=== PATIENT | female | born 1980 | race Hispanic/Latino ===

== ENCOUNTER 2023-10-01 04:51 | Emergency (ER) | payer OTHER ==
[~2023-10-01] VITALS: Ht 149.9 cm; Wt 122.5 kg
[2023-10-01] MEDS: PANTOPRAZOLE 40 MG/VIAL IVP ONE (05:06)
[2023-10-01] MEDS: LACTATED RINGERS 1000ML 1,000 ML IV ONE (05:06)
[2023-10-01] MEDS: ONDANSETRON 4MG INJ IVP ONE (05:06)
[2023-10-01 05:11] LABS: BASOPHILS # (AUTO) 0.04 K/uL (0.00-0.20); BASOPHILS % (AUTO) 0.2 % (0.0-5.0); EOSINOPHILS # (AUTO) 0.17 K/uL (0.00-0.70); EOSINOPHILS % (AUTO) 0.9 % (0.0-8.0); HEMATOCRIT 44.9 % (36-48); IMMATURE GRANULOCYTE ABSOLUTE 0.09 K/uL (0-1); LYMPHOCYTES # (AUTO) 1.8 K/uL (1.0-4.8); LYMPHOCYTES % (AUTO) 9.4 % (21.0-51.0); MEAN CORPUSCULAR HEMOGLOBIN 29.9 pg (27.0-33.0); MEAN CORPUSCULAR HGB CONC 34.5 g/dL (32.0-36.0); MEAN CORPUSCULAR VOLUME 86.5 fL (79-99); MONOCYTES # (AUTO) 0.4 K/uL (0.1-1.0); MONOCYTES % (AUTO) 2.3 % (3.0-13.0); NEUTROPHILS # (AUTO) 16.1 K/uL (1.8-7.7); NEUTROPHILS % (AUTO) 86.7 % (40.0-77.0); PLATELET COUNT (AUTO) 487 K/uL (130-400); RED BLOOD CELL COUNT(AUTO) 5.19 MIL/uL (4.00-5.50); RED CELL DISTRIBUTION WIDTH 12.9 % (11.0-15.5); WHITE BLOOD COUNT (AUTO) 18.6 K/uL (4.8-10.8)
[2023-10-01 05:21] LABS: CREATININE 0.7 mg/dL (0.5-1.0); POTASSIUM 3.7 mmol/L (3.5-5.1)
[2023-10-01 05:27] LABS: ALBUMIN 3.7 g/dL (3.5-5.0); BILIRUBIN,TOTAL 0.4 mg/dL (0.2-1.0); TOTAL PROTEIN, SERUM 8.4 g/dL (6.0-8.3)
[2023-10-01 05:30] LABS: WBC MORPHOLOGY CONSISTENT W/DIFF
[2023-10-01 06:35] LABS: BACTERIA,URINE RARE /HPF (None Seen); MUCUS,URINE MANY LPF (None Seen); SQUAMOUS EPITHELIAL CELL,UR MOD /HPF (0-2)
[2023-10-01 06:42] LABS: APPEARANCE,URINE CLEAR (CLEAR); BILIRUBIN,URINE SMALL mg/dL (NEGATIVE); COLOR,URINE YELLOW (YELLOW); GLUCOSE, URINE (UA) NEGATIVE (NEGATIVE); KETONES,URINE NEGATIVE (NEGATIVE); LEUKOCYTE ESTERASE ,URINE NEGATIVE Leu/uL (NEGATIVE); NITRATE,URINE POSITIVE (NEGATIVE); OCCULT BLOOD,URINE SMALL (NEGATIVE); PROTEIN,URINE 30 mg/dL (NEGATIVE); UROBILINOGEN,URINE 0.2 mg/dL (0.2-1.0)
[2023-10-01] MEDS: CEFTRIAXONE 1G VIAL IVPB ONE (06:55)
[2023-10-01] MEDS ORDERED: ONDA-243 PO (08:52)
[2023-10-01] MEDS ORDERED: LIDOCAINE HCL 2% VISCOUS 15 ML UDCUP PO ONE ×3 (09:00→09:30)
[2023-10-01] MEDS ORDERED: MAG/ALUM/SIMETH 30 ML UDCUP PO ONE ×2 (09:00→09:30)
[2023-10-01] MEDS ORDERED: PHARMACY COMMUNICATION MISC SCH (09:00)
[2023-10-01] MEDS: LIDOCAINE HCL 2% VISCOUS 15 ML UDCUP ONE (09:03)
[2023-10-01] MEDS: MAG/ALUM/SIMETH 30 ML UDCUP ONE (09:03)
[2023-10-01 09:06] VITALS: BP 127/77; PULSE 91; RESP 18; O2SAT 98
[2023-10-01] MEDS ORDERED: DICYCLOMINE HCL 10 MG/5 ML ML PO ONE (09:30)
== END 2023-10-01 09:08 | disposition home or self-care (01) ==
LOC: EDH 04:51
DX: E86.0 Dehydration (principal); A05.9 Bacterial foodborne intoxication, unspecified; R91.8 Other nonspecific abnormal finding of lung field; R11.2 Nausea with vomiting, unspecified; R19.7 Diarrhea, unspecified; Z98.890 Other specified postprocedural states
CPT/HCPCS: 99285; 84484; 80053; 84703; 83690; 85025; 87086; 81001 ×2; 36415; 74176; 96374; 96375; 93005; J7120; J0696; J2405; J2470

== ENCOUNTER 2024-06-08 08:19 | Emergency (ER) | payer OTHER ==
[~2024-06-08] VITALS: Ht 149.9 cm; Wt 108.9 kg
[~2024-06-08 08:19] MED LIST: ONDA-243 PO
[2024-06-08 08:21] VITALS: BP 101/62; PULSE 96; RESP 20; TEMP 101.6
[2024-06-08] MEDS ORDERED: OSEL75 PO (08:25)
[2024-06-08] MEDS ORDERED: FLUT16H NS (08:25)
[2024-06-08] MEDS ORDERED: LORA10TA7 PO (08:25)
--- NOTE | 2024-06-08 08:25 | ERN ---
General Chief Complaint: Flu Symptoms Stated Complaint: FLULIKE SYMPTOMS Time Seen by MD: 08:23 Source: patient History of Present Illness Initial Comments 43-year-old female coming in to be evaluated for flu-like symptoms. Patient states he was exposed to influenza by her grandchildren. Patient has a body aches and URI symptoms. Allergies: Coded Allergies: No Known Drug Allergies (Unverified Allergy, Unknown, 10/01/23) Home Meds Active Scripts Ondansetron (Ondansetron Odt) 4 Mg Tab.rapdis, 4 MG PO TIDP PRN for NAUSEA, #30 TAB 0 Refills Prov:LIZA PARKER MD 10/01/23 Past Medical History Past Medical History: Anemia Past Surgical History: ROS Dictation CONSTITUTIONAL: No chills, no fever, no weakness, no diaphoresis, no malaise. HEAD/FACE: No signs of trauma. EENT: No eye pain, no blurred vision, no tearing, no double vision, no ear pain, no ear discharge, no nose pain, no nasal congestion, no throat pain, no throat swelling, no mouth pain. RESPIRATORY: cough, no orthopnea, no SOB, no stridor, no wheezing. CARDIOVASCULAR: No chest pain, no edema, no palpitations, no syncope. GASTROINTESTINAL/ABDOMINAL: No abdominal pain, no constipation, no diarrhea, no nausea, no vomiting. GENITOURINARY: No abnormal discharge, no dysuria, no frequent urination, no hematuria. No complaints of pain in the genitals. MUSCULOSKELETAL: No back pain, no gout, no joint pain, no joint swelling, no muscle pain, no muscle stiffness, no neck pain. INTEGUMENTARY: No change in color, no change in hair/nails, no dryness, no lesion, no lumps, no rash. NEUROLOGICAL/PSYCH: No anxiety, not depressed, no emotional problem, no headache, no numbness, no pre-existing deficit, no history of seizures, no tremors, no weakness. HEMATOLOGIC/LYMPHATIC: Not anemic, no history of blood clots, no apparent bleeding, no bruising, glands not swollen. All Systems Negative, Except as Noted. Physical Exam Physical Exam Dictation VITAL SIGNS: Reviewed. GENERAL APPEARANCE: Alert, oriented x3, no acute distress, obese. HEAD AND FACE: Non-traumatic. EYES: PERRL, pink conjunctivas, eyelid no trauma, anterior chamber clear. EARS: Pinnas intact and no signs of trauma or erythema. Ear canals clear and no discharge. TMs no erythema. NOSE: No discharge, no bleeding. OROPHARYNX: Mouth normal, teeth no caries, tongue pink. Pharynx clear, no erythema. Tonsils no exudates, no abscesses noted. Mucous membrane moist. NECK: Supple, non-tender, no thyromegaly, no masses, no JVD, no bruits. BREAST: Deferred. CHEST: No tenderness, no crepitus, no paradoxical movement, no retractions. LUNGS: Clear, well-ventilated, symmetric, no rales, no wheezing, no rhonchi, no stridor, good breath sounds bilaterally. HEART: Regular rate, regular rhythm, no murmur, no gallops. VASCULAR: No peripheral edema. ABDOMEN: Soft, positive bowel sounds, nondistended, no guarding, nontender, no rebound, no masses no hepatomegaly, no splenomegaly, no Gonzalez's sign, no hernias. RECTAL: Deferred. GENITAL: Deferred. NEUROLOGICAL: Normal speech, gross motor function intact, gross sensory function intact. MUSCULOSKELETAL: Neck nontender, full range of motion, back nontender, full range of motion. EXTREMITIES: Nontender, full range of motion. SKIN: Color pink, dry, no turgor, no rash, no lacerations, no abrasions, no contusions. LYMPHATICS: Deferred. Results Laboratory and Microbiology Labs Reviewed?: Yes MDM MDM: Differential diagnosis: Influenza, COVID, strep Patient is a 43-year-old female coming in to be evaluated for flu-like symptoms. Because patient was exposed to influenza by family members patient will be discharged with Tamiflu a date advised her appropriate follow up with PCP in 1-2 days. DX & DISP Disposition: Discharge Departure Impression: Primary Impression: Influenza Condition: Stable Scripts Loratadine (Loratadine) 10 Mg Tablet 1 TAB PO DAILY for allergy symptoms for 30 Days, #30 TAB 0 Refills Prov: SHIRA LOCKWOOD MD 06/08/24 Fluticasone Propionate (Flonase Nasal [place]) 50 Mcg/Actuation [place] 2 SPRAY NS DAILY, #16 GM 0 Refills Prov: SHIRA LOCKWOOD MD 06/08/24 Oseltamivir Phosphate (Tamiflu) 75 Mg Cap 1 CAP PO BID for 5 Days, #10 CAP 0 Refills Prov: SHIRA LOCKWOOD MD 06/08/24 Additional Instructions: FOLLOW-UP WITH PRIMARY CARE PROVIDER IN 1 TO 2 DAYS. TAKE MEDICATIONS DIRECTED HERE IN THE EMERGENCY ROOM. OKAY TO CONTINUE HOME MEDICATIONS UNLESS OTHERWISE DISCUSSED DURING YOUR VISIT IN THE EMERGENCY ROOM TODAY. RETURN TO YOUR NEAREST EMERGENCY ROOM IF SYMPTOMS WORSEN OR IF THERE IS NO IMPROVEMENT. CALL 911 IF YOU NEED IMMEDIATE ASSISTANCE. TAKE TYLENOL [id number] NEEDED AND IF NO CONTRAINDICATIONS ARE PRESENT. INCREASE ORAL HYDRATION. A WOUND CULTURE OR URINE CULTURE WAS ORDERED HERE IN THE EMERGENCY ROOM DEPARTMENT PLEASE FOLLOW-UP WITH PRIMARY CARE PROVIDER AND ADVISE THEM TO GET REPEAT PORTS FROM OUR FACILITY. IF YOU HAD ANY MONY WRAP/SPLINTS THAT WERE APPLIED HERE, PLEASE DO NOT REMOVE THEM UNTIL YOU SEE YOUR PRIMARY CARE OR SPECIALTY. Referrals: Referrals: MAMTA SHELTON DO (PCP) Time of Disposition: 08:25 SHIRA LOCKWOOD MD Jun 08, 2024 08:25
[2024-06-08 08:30] VITALS: TEMP 101.7
[2024-06-08] MEDS: acetaMINOPHEN 500 MG TABLET PO ONE (08:30)
== END 2024-06-08 08:43 | disposition home or self-care (01) ==
LOC: EDH 08:19
DX: J11.1 Influenza due to unidentified influenza virus with other respiratory manifestations (principal); Z79.899 Other long term (current) drug therapy; Z98.890 Other specified postprocedural states
CPT/HCPCS: 99283

== ENCOUNTER 2024-06-10 15:21 | Inpatient (IN) | payer OTHER ==
[~2024-06-10] VITALS: Ht 149.9 cm; Wt 102.1 kg
[~2024-06-10 15:21] MED LIST changes: +FLUT16H NS; +LORA10TA7 PO; +OSEL75 PO
[2024-06-10] MEDS ORDERED: Solu-medROL 125MG VIAL IM ONE (16:00)
--- NOTE | 2024-06-10 16:13 | HMCIMG ---
PORTABLE CHEST RADIOGRAPH INDICATION: sob, wheezing COMPARISON: None FINDINGS: Image is somewhat underexposed, but the radiologic examination is still believed to be of reasonable diagnostic quality. Heart size is normal. The pulmonary vascularity and carrington appear normal. Scattered left lung and suspect right lower lung opacities. No significant pleural effusion noted. No pneumothorax detected. IMPRESSION: Left lung pneumonia and suspect early right lung pneumonia. Follow-up chest radiograph is advised in order to ensure resolution.
[2024-06-10 16:20] LABS: BASOPHILS # (AUTO) 0.03 K/uL (0.00-0.20); BASOPHILS % (AUTO) 0.4 % (0.0-5.0); EOSINOPHILS # (AUTO) 0.02 K/uL (0.00-0.70); EOSINOPHILS % (AUTO) 0.2 % (0.0-8.0); IMMATURE GRANULOCYTE ABSOLUTE 0.04 K/uL (0-1); LYMPHOCYTES # (AUTO) 1.8 K/uL (1.0-4.8); LYMPHOCYTES % (AUTO) 22.3 % (21.0-51.0); MEAN CORPUSCULAR HEMOGLOBIN 29.9 pg (27.0-33.0); MEAN CORPUSCULAR HGB CONC 33.4 g/dL (32.0-36.0); MEAN CORPUSCULAR VOLUME 89.5 fL (79-99); MONOCYTES # (AUTO) 0.6 K/uL (0.1-1.0); MONOCYTES % (AUTO) 6.9 % (3.0-13.0); NEUTROPHILS # (AUTO) 5.7 K/uL (1.8-7.7); NEUTROPHILS % (AUTO) 69.7 % (40.0-77.0); PLATELET COUNT (AUTO) 283 K/uL (130-400); RED BLOOD CELL COUNT(AUTO) 4.58 MIL/uL (4.00-5.50); RED CELL DISTRIBUTION WIDTH 12.8 % (11.0-15.5); WHITE BLOOD COUNT (AUTO) 8.1 K/uL (4.8-10.8)
[2024-06-10] MEDS: [UNRECOGNIZED DRUG - OTHER] IV ONE (16:22)
[2024-06-10] MEDS: AZITHROMYCIN 500MG+NS 250ML 250 ML IV ONE (16:22)
[2024-06-10] MEDS: cefTRIAXone 1G VIAL IVPB ONE (16:22)
[2024-06-10 16:29] LABS: ABG BASE EXCESS -0.3 mmol/L (-2.0-3.0); ABG HCO3 22.8 mmol/L (21.0-28.0); ABG PCO2 33 mmHg (32-45); ABG PH 7.459 (7.350-7.450); VENT MODE, BG RA (ROOM AIR)
[2024-06-10 16:32] LABS: CREATININE 0.8 mg/dL (0.5-1.0); POTASSIUM 3.3 mmol/L (3.5-5.1)
[2024-06-10 16:42] VITALS: PULSE 115; RESP 22
[2024-06-10] MEDS: IpraTROPium/alBUTERol SULFATE 3 ML SOLUTION IH ONE ×2 (16:44→17:34)
--- NOTE | 2024-06-10 16:44 | ERN ---
ED Note History of Present Illness Stated Complaint: COUGH, ABD PAIN, HARD TIME BREATHING Chief Complaint: Shortness of Breath Time Seen by MD: 15:23 Dictation: History of present illness: 43-year-old female with past medical history of asthma, anemia presented to ED with complaints of shortness of breath, cough and fever for past 1 week. As per the patient she came to ED 3 days back and was treated with Tamiflu but her symptoms worsened over time. At the time of presentation she states that she can not breath. She denies nausea, vomiting, abdominal pain, dysuria, headache. Her vitals are temperature 101.1, pulse rate 1 0, respiratory 22 per minute, blood pressure 131/77, SpO2 90%on 2 lo2 nasal cannula Allergies: Coded Allergies: No Known Drug Allergies (Unverified Allergy, Unknown, 10/01/23) Home Meds Active Scripts Loratadine (Loratadine) 10 Mg Tablet, 1 TAB PO DAILY for allergy symptoms for 30 Days, #30 TAB 0 Refills Prov:SHIRA LOCKWOOD MD 06/08/24 Fluticasone Propionate (Flonase Nasal [place]) 50 Mcg/Actuation [place], 2 SPRAY NS DAILY, #16 GM 0 Refills Prov:SHIRA LOCKWOOD MD 06/08/24 Oseltamivir Phosphate (Tamiflu) 75 Mg Cap, 1 CAP PO BID for 5 Days, #10 CAP 0 Refills Prov:SHIRA LOCKWOOD MD 06/08/24 Ondansetron (Ondansetron Odt) 4 Mg Tab.rapdis, 4 MG PO TIDP PRN for NAUSEA, #30 TAB 0 Refills Prov:LIZA PARKER MD 10/01/23 Past Medical History Past Medical History: Asthma, High Cholesterol, Hypertension Surgical History: Review of System Dictation REVIEW OF SYSTEMS Positive for shortness of breath, fever, cough CONSTITUTIONAL: Denies fevers, chills, or night sweats. No unintentional weight loss reported. ENT: No hearing loss, otalgia, otorrhea, rhinitis, rhinorrhea, hoarseness, or sore throat. CARDIOVASCULAR: Denies any exertional angina, dyspnea on exertion, orthopnea, paroxysmal nocturnal dyspnea, palpitations claudication. PULMONARY: Denies any shortness of breath, cough, phlegm / sputum, hemoptysis, pleuritic chest pain. SLEEP: Denies morning headaches, daytime somnolence or napping. Denies difficulty falling asleep, staying asleep, waking from sleep. Denies knowledge of snoring. GASTROINTESTINAL: Denies any type of dysphagia to either liquids or solids. Denies nausea, vomiting, abdominal pain, diarrhea, constipation, blood in stools . NEUROLOGICAL: Denies headache, motor weakness, sensory deficit, vertigo / spinning sensation, gait abnormalities, or tremors. GENITOURINARY: Denies frequency, urgency, nocturia, hematuria or incontinence, low urinary stream, straining to void, urinary intermittency or hesitancy ENDOCRINOLOGY: Denies polyuria, polydipsia, polyphagia or heat / cold intolerance. HEMATOLOGY: Denies thrombophilia / previous clots, or coagulopathy / bleeding disorders. ONCOLOGIC: Denies personal history of malignancy. DERMATOLOGIC: Denies rashes or pruritus. PSYCHIATRIC: Denies any suicidal or homicidal ideation. Denies hallucinations. Initial Vital Sign VS Vital Signs Date Time Temp Pulse Resp B/P (MAP) Pulse Ox O2 Delivery O2 Flow Rate FiO2 06/10/24 15:48 101.1 108 22 146/75 95 Room Air 0 06/10/24 16:09 28 Physical Exam Dictation PHYSICAL EXAM GENERAL APPEARANCE: Well nourished . Awake and alert. Oriented to time, place and person. Patient in moderate distress HEENT: Head normocephalic , atraumatic. Sclera anicteric . Pupils are round and reactive. Extraocular movements intact . No conjunctival injection. No nasal congestion. No throat congestion .Oral mucosa moist. NECK: Supple. No JVD. No thyromegaly. No submental, submandibular, pre-/pos tauricular, occipital or supraclavicular lymphadenopathy. No carotid bruits. CHEST: Normal chest expansion. No Telemetry. LUNGS: Bilateral scattered wheezes and crepitations CARDIOVASCULAR: Regular rate and rhythm. S1 and S2 normal. No rubs, murmurs o r gallops. ABDOMEN: Soft, nontender, and nondistended. There is no rebound tenderness, voluntary guarding, or rigidity. No hepatosplenomegaly. Bowel sounds normal in all four quadrants . NEUROLOGICAL: Cranial nerves II-XII grossly intact. Motor is 5/5 in bilateral upper and lower extremities . No sensory deficits. EXTREMITIES: No edema, No cyanosis , No clubbing. Good capillary refill. SKIN: No skin breakdown. No rashes or lesions . PSYCHIATRY: Normal affect .No auditory or visual hallucinations. Normal speech. No dysarthria. Results (Laboratory/Radiology) Laboratory/Radiology Laboratory Tests Test 06/10/24 16:09 06/10/24 16:17 06/10/24 16:28 06/10/24 16:41 White Blood Count 8.1 K/uL (4.8-10.8) Red Blood Count 4.58 MIL/uL (4.00-5.50) Hemoglobin 13.7 g/dL (12.0-16.0) Hematocrit 41.0 % (36-48) Mean Corpuscular Volume 89.5 fL (79-99) Mean Corpuscular Hemoglobin 29.9 pg (27.0-33.0) Mean Corpuscular Hemoglobin Concent 33.4 g/dL (32.0-36.0) Red Cell Distribution Width 12.8 % (11.0-15.5) Platelet Count 283 K/uL (130-400) Mean Platelet Volume 9.4 fL (7.5-10.5) Immature Granulocyte % (Auto) 0.5 % (0-1) Neutrophils (%) (Auto) 69.7 % (40.0-77.0) Lymphocytes (%) (Auto) 22.3 % (21.0-51.0) Monocytes (%) (Auto) 6.9 % (3.0-13.0) Eosinophils (%) (Auto) 0.2 % (0.0-8.0) Basophils (%) (Auto) 0.4 % (0.0-5.0) Neutrophils # (Auto) 5.7 K/uL (1.8-7.7) Lymphocytes # (Auto) 1.8 K/uL (1.0-4.8) Monocytes # (Auto) 0.6 K/uL (0.1-1.0) Eosinophils # (Auto) 0.02 K/uL (0.00-0.70) Basophils # (Auto) 0.03 K/uL (0.00-0.20) Absolute Immature Granulocyte (auto 0.04 K/uL (0-1) Nucleated Red Blood Cells 0.0 % (0.0-0.19) Sodium Level 130 mmol/L (136-145) L Potassium Level 3.3 mmol/L (3.5-5.1) L Chloride Level 93 mmol/L (101-111) L Carbon Dioxide Level 31 mmol/L (21-32) Blood Urea Nitrogen 8 mg/dL (7-18) Creatinine 0.8 mg/dL (0.5-1.0) Glomerular Filtration Rate Calc 93 mL/min (>90) Random Glucose 115 mg/dL (70-105) H Lactic Acid Level 1.7 mmol/L (0.8-2.5) Total Calcium 8.5 mg/dL (8.5-10.1) Troponin I High Sensitivity 7 ng/L (4-50) B-Type Natriuretic Peptide < 5 pg/mL (0-100) Procalcitonin 0.06 ng/mL (0.05-0.5) Influenza Type A Antigen Negative For Type A Influenza Type B Antigen Negative For Type B SARS-CoV-2 Antigen (Rapid) PRESUMPTIVE NEGATIVE Blood Gas Specimen Type Arterial Arterial Blood pH 7.459 (7.350-7.450) Arterial Blood Partial Pressure CO2 33 mmHg (32-45) Arterial Blood Partial Pressure O2 54.0 mmHg (83.0-108.0) Arterial Blood HCO3 22.8 mmol/L (21.0-28.0) Arterial Blood Oxygen Saturation 90.0 % (94.0-98.0) L Arterial Blood Base Excess -0.3 mmol/L (-2.0-3.0) Blood Gas Temperature 37.0 CELSIUS (35.5-37.0) Blood Gas Vent Mode RA (ROOM AIR) FiO2 21.0 % Blood Gas Specimen Comment ANKITA PATTI RB Group A Streptococcus Rapid negative (NEGATIVE) Test 06/10/24 17:35 Urine Color COLORLESS (YELLOW) Urine Appearance CLEAR (CLEAR) Urine pH 5.5 (5.0-8.0) Urine Specific [place] 1.001 (1.001-1.031) Urine Protein NEGATIVE mg/dL (NEGATIVE) Urine Glucose (UA) NEGATIVE mg/dL (NEGATIVE) Urine Ketones 5 mg/dL (NEGATIVE) H Urine Occult Blood SMALL (NEGATIVE) H Urine Nitrate NEGATIVE (NEGATIVE) Urine Bilirubin NEGATIVE mg/dL (NEGATIVE) Urine Urobilinogen 0.2 mg/dL (0.2-1.0) Urine Leukocyte Esterase NEGATIVE Pato/uL Urine RBC 0-1 /HPF (0-1) Urine WBC 0-1 /HPF (0-1) Urine Squamous Epithelial Cells RARE /HPF (0-2) Urine Bacteria None /HPF (None Seen) ED Course ED Course Orders Procedure Category Date Status Time Cbc With Differential LAB 06/10/24 Complete 15:50 Basic Metabolic Panel LAB 06/10/24 Complete 15:50 Influenza Type A & B, LAB 06/10/24 Complete Rapid 15:50 Covid19 (Sars Antigen LAB 06/10/24 Complete Rapid) 15:50 Chest 1vw RAD 06/10/24 Resulted 15:50 Lactic Acid LAB 06/10/24 Complete 15:50 Methylprednisolone PHA 06/10/24 Complete Succ 125mg (Solu-Medr 16:00 Ipratropium/Albuterol PHA 06/10/24 Complete Neb (Duoneb) 16:00 Vital Signs Per CPOE 06/10/24 Transmitted Routine 15:59 Blood Cult DANE 06/10/24 In Process 15:59 Urinalysis Profile LAB 06/10/24 Complete 15:59 Azithromycin 500mg+Ns PHA 06/10/24 Complete 250ml (Azithromyci 16:00 0.9%Nacl 1000ml (Ns PHA 06/10/24 In Process 1000ml) 16:00 Troponin I High LAB 06/10/24 Complete Sensitivity 15:59 B-Type Natriuretic LAB 06/10/24 Complete Peptide 15:59 Procalcitonin LAB 06/10/24 Complete 15:59 Ceftriaxone 1g Vial PHA 06/10/24 Complete (Rocephine 1g Inj) 16:00 Arterial Blood Gas RT 06/10/24 Transmitted 16:12 Arterial Blood Gas LAB 06/10/24 Complete 16:28 Acetaminophen 325 Tab PHA 06/10/24 Complete (Tylenol 325mg Tab 17:00 Ipratropium/Albuterol PHA 06/10/24 Complete Neb (Duoneb) 17:00 Furosemide 20mg Vial PHA 06/10/24 Complete (Lasix 20mg Vial) 17:30 Initiate Po CASPER 06/10/24 In Process Hypokalemia Protoc 17:06 Potassium Chloride PHA 06/10/24 In Process 20meq/100ml ([place] 17:30 Potassium Chl 10% PHA 06/10/24 In Process Elixir 20meq (Kcl 10% 17:30 Potassium Chloride PHA 06/10/24 In Process 20meq Er (K-Dur/Klor- 17:30 Notify Physician If CPOE 06/10/24 Transmitted There Is 17:06 Notify Md On The Next CPOE 06/10/24 Transmitted 17:06 Notify Md On The CPOE 06/10/24 Transmitted Next(Cont.) 17:06 Rapid (Group A Strep) LAB 06/10/24 Complete 16:41 Admit Orders ADM 06/10/24 Transmitted 17:22 Pulmonology Consult CONPHYSVC 06/10/24 Transmitted 17:22 Apply Scds CPOE 06/11/24 Transmitted 06:00 Cbc Without LAB 06/11/24 Verified Differential 04:00 Comprehensive LAB 06/11/24 Verified Metabolic Panel 04:00 Magnesium LAB 06/11/24 Verified 04:00 Azithromycin 500mg+Ns PHA 06/11/24 In Process 250ml (Azithromyci 17:30 Initiate Po CASPER 06/10/24 In Process Hypokalemia Protoc 17:37 Notify Physician If CPOE 06/10/24 Transmitted There Is 17:37 Notify Md On The Next CPOE 06/10/24 Transmitted 17:37 Notify Md On The CPOE 06/10/24 Transmitted Next(Cont.) 17:37 Magnesium 2gm Premix PHA 06/10/24 In Process 50ml (Magnesium 2gm 18:00 Magnesium LAB 06/10/24 In Process 17:37 Ipratropium 0.5 PHA 06/10/24 In Process Mg/2.5 Ml Inh 18:00 Methylprednisolone PHA 06/10/24 In Process Succ 125mg (Solu-Medr 18:00 Hemoglobin A1c LAB 06/10/24 In Process 17:40 Acetaminophen 325 Tab PHA 06/10/24 In Process (Tylenol 325mg Tab 18:00 Acetaminophen 325 Tab PHA 06/10/24 In Process (Tylenol 325mg Tab 18:00 Ondansetron 4mg Inj PHA 06/10/24 In Process (Zofran 4mg Inj) 18:00 Famotidine 20mg Tab PHA 06/10/24 In Process (Pepcid 20mg Tab) 21:00 Ceftriaxone 2gm Vial PHA 06/10/24 In Process (Rocephin 2gm Inj) 18:00 Montelukast Sodium 10 PHA 06/10/24 In Process Mg Tab (Singulair) 21:00 Oxygen By Nc/Pulse Ox CPOE 06/10/24 Transmitted 17:40 Legionella Pneumo Ag DANE 06/10/24 Logged Urine 17:43 Mycoplasma Ab Igg & LAB 06/10/24 In Process IGM 17:43 Metoprolol Tartrate PHA 06/10/24 In Process (Lopressor) 18:00 Heart Healthy Diet DIET 06/11/24 Transmitted Breakfast Enoxaparin Sodium 40 PHA 06/11/24 In Process Mg/0.4 Ml (Lovenox) 09:00 Current Medications Medications (Trade) Dose Ordered Sig/Juani Route PRN Reason Start Time Stop Time Status Last Admin Dose Admin Acetaminophen (TYLenol 325MG TAB) 650 mg ONCE ONCE PO 06/10/24 17:00 06/10/24 17:06 DC 06/10/24 17:18 Albuterol (DUOneb) 1 UDVIAL ONCE ONCE IH 06/10/24 16:00 06/10/24 16:01 DC 06/10/24 16:44 Albuterol (DUOneb) 1 UDVIAL ONCE ONCE IH 06/10/24 17:00 06/10/24 17:06 DC 06/10/24 17:34 Azithromycin 250 ml @ 125 mls/hr ONCE ONCE IV 06/10/24 16:00 06/10/24 17:59 DC 06/10/24 16:22 Ceftriaxone Sodium (ROCEphine 1G INJ) 1 gm ONCE ONCE IVPB 06/10/24 16:00 06/10/24 16:06 DC 06/10/24 16:22 Methylprednisolone Sodium Succinate (Solu-medROL 125MG) 125 mg ONCE ONCE IM 06/10/24 16:00 06/10/24 16:00 DC Sodium Chloride 3,537 ml @ 1,179 mls/hr ONCE ONCE IV 06/10/24 16:00 06/10/24 18:59 06/10/24 16:22 Vital Signs Date Time Temp Pulse Resp B/P (MAP) Pulse Ox O2 Delivery O2 Flow Rate FiO2 06/10/24 17:53 90 22 06/10/24 17:18 99.9 06/10/24 17:15 99.9 111 20 119/72 90 Nasal Cannula* 2 28 06/10/24 16:42 115 22 06/10/24 16:09 101.1 110 20 131/77 90 Nasal Cannula* 2 28 06/10/24 15:48 101.1 108 22 146/75 95 Room Air 0 Medical Decision Making MDM Differential diagnosis : Acute asthma exacerbation, influenza, COVID infection, acute respiratory failure, sepsis, atypical pneumonia Rationale: Tests considered and ordered secondary to shared decision making include: I will re-evaluate the patient after treatment and diagnostic exams have ret urned to determine whether they require further testing, can be safely discharged home, or need admission for further treatment and evaluation. Given the social determinants of health affecting care, including literacy, access to medical care, prescription drug management, and [id number] drugs, I will ensure that treatment plans are tailored accordingly. There are no social concerns with this patient. Risk of complication and/or morbidity or mortality of patient management: None Need for hospitalization: Patient does not meet criteria for hospitalization. Need for emergency major/minor surgery: No Prescription drug management Prescriptions will include symptomatic care Medications-Per medication reconciliation Previous outside records reviewed: Old ER visits. Patient's prior external medical records from other ER visits were reviewed by me as indicated. Prior testing and results from previous visits were reviewed. Prior tests were taken into account with medical decision making and resource utilization, independent historian/historians were used to obtain complete medical history. I independently interpreted the test that were performed, results were reviewed by me and considered findings on radiology. Medical management and examination interpretation discussions was done by me with other qualified healthcare professionals as indicated for the patient's care. Revaluation : Sirs criteria positive. WBCs normal. BMP showed SODIUM 130, POTASSIUM 3.3, CHLORIDE 93. BNP less than5. Her chest x-ray shows bilateral congestion versus pneumonia. We had treated her ceftriaxone and azithromycin. Patient states that she was seen comparatively better after nebulization and Solu-Medrol ejection. We will admit her secondary to acute respiratory failure. Disposition : DX & DISP Disposition: Inpatient Departure Impression: Primary Impression: Sepsis Additional Impressions: Pneumonia, Hypokalemia, Hyponatremia, Morbid obesity, Respiratory failure with hypoxia Critical Time: 30 minutes (Critical Care Procedure NoteAuthorized and Performed by: meTotal critical care time: Approximately 36 minutesDue to a high probability of clinically significant, life threatening deterioration, the patient required my highest level of preparedness to intervene emergently and I personally spent this critical care time directly and personally managing the patient. This critical care time included obtaining a history; examining the patient; pulse oximetry; ordering and review of studies; arranging urgent treatment with development of a management plan; evaluation of patient's response to treatment; frequent reassessment; and, discussions with other providers.This critical care time was performed to assess and manage the high probability of imminent, life-threatening deterioration that could result in multi-organ failure. It was exclusive of separately billable procedures and t reating other patients and teaching time.Please see MDM section and the rest of the note for further information on patient assessment and treatment.) Condition: Stable Referrals: MAMTA SHELTON DO (PCP) I performed a substantive portion of the visit. I have reviewed and personally made and approve the management plan that is documented in the notes by myself with DANAE/resident. I acknowledged full responsibility for the patient's management plan. 43-year-old female with a few days of cough congestion and dyspnea. Meets sepsis criteria. Respiratory failure with hypoxia, PaO2 less than 60. Placed on oxygen. Patient received 30 cc/kg fluids based on ideal body weight, antibiotics. On sepsis focused re-evaluation after the fluids in the antibiotics, patient has cap refill less than 2 seconds stable perfusion the stable vital signs. Admitted to hospitalist. OLIVIA TERESA MD Jun 10, 2024 16:43 DAJUAN MCCURDY DO Jun 10, 2024 18:37
[2024-06-10 16:50] LABS: COVID19 (SARS ANTIGEN RAPID) PRESUMPTIVE NEGATIVE (NEGATIVE); INFLUENZA TYPE A Negative For Type A (NEGATIVE); INFLUENZA TYPE B Negative For Type B (NEGATIVE)
[2024-06-10] MEDS: acetaMINOPHEN 325 MG TAB PO ONE (17:18)
[2024-06-10] MEDS ORDERED: PoTASSium chloRIDE 20MEQ/100ML 100 ML IV PRN ×2 (17:30→18:00)
[2024-06-10] MEDS ORDERED: PoTASSium chl 10% ELIXIR 20MEQ 20 MEQ/15 ML UDCUP PO PRN ×2 (17:30→18:00)
[2024-06-10 17:44] LABS: APPEARANCE,URINE CLEAR (CLEAR); BILIRUBIN,URINE NEGATIVE (NEGATIVE); COLOR,URINE COLORLESS (YELLOW); GLUCOSE, URINE (UA) NEGATIVE (NEGATIVE); KETONES,URINE 5 mg/dL (NEGATIVE); LEUKOCYTE ESTERASE ,URINE NEGATIVE Leu/uL (NEGATIVE); NITRATE,URINE NEGATIVE (NEGATIVE); OCCULT BLOOD,URINE SMALL (NEGATIVE); PH,URINE 5.5 (5.0-8.0); PROTEIN,URINE NEGATIVE (NEGATIVE); UROBILINOGEN,URINE 0.2 mg/dL (0.2-1.0)
[2024-06-10 17:45] LABS: ADD UA MICROSCOPIC YES; RBC,URINE 0-1 /HPF (0-1); SQUAMOUS EPITHELIAL CELL,UR RARE /HPF (0-2); WBC,URINE 0-1 /HPF (0-1)
[2024-06-10 17:53] VITALS: PULSE 90; RESP 22
--- NOTE | 2024-06-10 17:57 | HP ---
[facility] PHYS[facility] Date of Service: Jun 10, 2024 Time of Service: 17:45 HISTORY OF PRESENT ILLNESS: [43-year-old female with past medical history of asthma to the emergency department with complaints of shortness of breaths. Patient is accompanied by her daughter who is also helping with this question and answer. Patient apparently has been having issues of shortness of breaths since Thursday06/06/2024. Patient has been using her albuterol nebulizer treatment but has not improved her condition hence she decided to come to the emergency department. Associated symptoms also include fever which is on and off, weakness and lethargy. In the emergency department, her initial vitals showed fever of 101.1 F, HR between [id number], RR 22, BP 146/75, O2 saturation 90% on2 L via nasal cannula. Patient was evaluated in ED room seven, she is short of breath, noted labored breathing and accessory muscle use. Unable to speak, daughter is speaking for her at this time. She is unable to lay flat and sitting on the gurney. Labs will be, hematology is unremarkable, chemistry showed Na 130, K3.3, Cl 93, random glucose 115. Patient was negative for COVID, influenza a/B and strep. Patient was referred to the hospitalist for further evaluation and management.] REVIEW OF SYSTEMS CONSTITUTIONAL: Denies fevers, chills, or night sweats. No unintentional weight loss reported. NEUROLOGICAL: Denies headache, amaurosis fugax, motor weakness, sensory deficit, vertigo/spinning sensation, gait abnormalities, or tremors. ENT: No hearing loss, otalgia, otorrhea, rhinitis, rhinorrhea, hoarseness, or sore throat. CARDIOVASCULAR: Denies any exertional angina, dyspnea on exertion, orthopnea, paroxysmal nocturnal dyspnea, palpitations, life-threatening arrhythmias, claudication. PULMONARY: Denies any shortness of breath, cough, phlegm/sputum, hemoptysis, pleuritic chest pain. SLEEP: Denies morning headaches, daytime somnolence or napping. Denies difficulty falling asleep, staying asleep, waking from sleep. Denies knowledge of snoring. GASTROINTESTINAL: Denies any type of dysphagia to either liquids or solids. Denies nausea, vomiting, pyrosis, early satiety, abdominal pain, diarrhea, constipation, or changes in stool consistency or caliber. Denies coffee-ground emesis, hematemesis, hematochezia, or melanotic stools. GENITOURINARY: Denies frequency, urgency, nocturia, hematuria or incontinence (Storage/Irritative symptoms.) Low urinary stream, straining to void, urinary intermittency or hesitancy, splitting of the voiding stream, terminal dribbling. ENDOCRINOLOGIC: Denies polyuria, polydipsia, polyphagia or heat/cold intolerances. HEMATOLOGIC: Denies thrombophilia/previous clots, or coagulopathy/bleeding disorders. ONCOLOGIC: Denies personal history of malignancy. DERMATOLOGIC: Denies rashes or pruritus. PSYCHIATRIC: Denies any suicidal or homicidal ideation. Denies hallucinations. PAST MEDICAL HISTORY: [ Asthma, hypertension ] PAST SURGICAL HISTORY: [ x5 ] PAST SOCIAL HISTORY: [Patient is a current tobacco smoker, smokes one sticks per day. Unable to remember how many years of smoking history. Denies alcohol and illicit drug use. ] FAMILY HISTORY: [ Hypertension ] Coded Allergies: No Known Drug Allergies (Unverified Allergy, Unknown, 10/01/23) PHYSICAL EXAM GENERAL APPEARANCE: The patient is awake, alert, and oriented, in no acute cardiopulmonary distress. NEUROLOGICAL: Cranial nerves II-XII grossly intact. Motor is 5/5 in bilateral upper and lower extremities proximal to distal. No sensory deficits. HEENT: Face is symmetric. Pupils are equal and reactive. Extraocular movements are intact. NECK: Supple. No JVD. No thyromegaly. No submental, submandibular, pre- /postauricular, occipital or supraclavicular lymphadenopathy. CHEST: Normal chest expansion. No Telemetry. LUNGS: Absence of any rales, rhonchi or any wheezing. CARDIOVASCULAR: Regular. S1 and S2 normal. No appreciable rubs, murmurs or gallops. ABDOMEN: Soft, nontender, and nondistended. There is no rebound, voluntary guarding, or rigidity. : Deferred. No Butt. EXTREMITIES: Non-edematous and not cyanotic. No clubbing. Good capillary refill. SKIN: No skin breakdown. Vital Sign (Last 24 Hours) 06/10/24 06/10/24 17:15 17:18 Temp 99.9 Pulse 111 Resp 20 B/P (MAP) 119/72 Pulse Ox 90 O2 Delivery Nasal Cannula* O2 Flow Rate 2 FiO2 28 LABS: Laboratory: Test 06/10/24 16:41 06/10/24 16:28 06/10/24 16:17 06/10/24 16:09 Range/Units Group A Streptococcus Rapid negative NEGATIVE Blood Gas Specimen Type Arterial Arterial Blood pH 7.459 H 7.350-7.450 Arterial Blood Partial Pressure CO2 33 32-45 mmHg Arterial Blood Partial Pressure O2 54.0 *L 83.0-108.0 mmHg Arterial Blood HCO3 22.8 21.0-28.0 mmol/L Arterial Blood Oxygen Saturation 90.0 L 94.0-98.0 % Arterial Blood Base Excess -0.3 -2.0-3.0 mmol/L Blood Gas Temperature 37.0 35.5-37.0 CELSIUS Blood Gas Vent Mode RA ROOM AIR FiO2 21.0 % Blood Gas Specimen Comment ANKITA PATTI RB Influenza Type A Antigen Negative For Type A NEGATIVE Influenza Type B Antigen Negative For Type B NEGATIVE SARS-CoV-2 Antigen (Rapid) PRESUMPTIVE NEGATIVE NEGATIVE White Blood Count 8.1 4.8-10.8 K/uL Red Blood Count 4.58 4.00-5.50 MIL/uL Hemoglobin 13.7 12.0-16.0 g/dL Hematocrit 41.0 36-48 % Mean Corpuscular Volume 89.5 79-99 fL Mean Corpuscular Hemoglobin 29.9 27.0-33.0 pg Mean Corpuscular Hemoglobin Concent 33.4 32.0-36.0 g/dL Red Cell Distribution Width 12.8 11.0-15.5 % Platelet Count 283 130-400 K/uL Mean Platelet Volume 9.4 7.5-10.5 fL Immature Granulocyte % (Auto) 0.5 0-1 % Neutrophils (%) (Auto) 69.7 40.0-77.0 % Lymphocytes (%) (Auto) 22.3 21.0-51.0 % Monocytes (%) (Auto) 6.9 3.0-13.0 % Eosinophils (%) (Auto) 0.2 0.0-8.0 % Basophils (%) (Auto) 0.4 0.0-5.0 % Neutrophils # (Auto) 5.7 1.8-7.7 K/uL Lymphocytes # (Auto) 1.8 1.0-4.8 K/uL Monocytes # (Auto) 0.6 0.1-1.0 K/uL Eosinophils # (Auto) 0.02 0.00-0.70 K/uL Basophils # (Auto) 0.03 0.00-0.20 K/uL Absolute Immature Granulocyte (auto 0.04 0-1 K/uL Nucleated Red Blood Cells 0.0 0.0-0.19 % Sodium Level 130 L 136-145 mmol/L Potassium Level 3.3 L 3.5-5.1 mmol/L Chloride Level 93 L 101-111 mmol/L Carbon Dioxide Level 31 21-32 mmol/L Blood Urea Nitrogen 8 7-18 mg/dL Creatinine 0.8 0.5-1.0 mg/dL Glomerular Filtration Rate Calc 93 >90 mL/min Random Glucose 115 H 70-105 mg/dL Lactic Acid Level 1.7 0.8-2.5 mmol/L Total Calcium 8.5 8.5-10.1 mg/dL Troponin I High Sensitivity 7 4-50 ng/L B-Type Natriuretic Peptide < 5 0-100 pg/mL Procalcitonin 0.06 0.05-0.5 ng/mL Current Medications Medications (Trade) Dose Ordered Sig/Juani Route PRN Reason Start Time Stop Time Status Last Admin Dose Admin Azithromycin 250 ml @ 250 mls/hr Q24H IVPB 06/11/24 17:30 06/21/24 17:29 UNV Potassium Chloride 100 ml @ 100 mls/hr AD PRN IV POTASSIUM PROTOCOL 06/10/24 17:30 07/10/24 17:29 Potassium Chloride (K-Dur/Klor-Con 20meq) 20 meq AD PRN PO POTASSIUM PROTOCOL 06/10/24 17:30 07/10/24 17:29 Potassium Chloride (KCl 10% Elixir 20meq/15ml) 20 meq AD PRN PO POTASSIUM PROTOCOL 06/10/24 17:30 07/10/24 17:29 DIAGNOSTICS / RADIOLOGY: [[place] [address] [address] IMAGING REPORT Signed PATIENT: MADAN DAVISON MR#: [id number] : 1980 SEX: F AGE: 43 LOCATION: [facility] ORDER 1553 STATUS: REG ER REPORT#: [id number] SERVICE 1550 REASON: sob, wheezing ORDERING PHYSICIAN: OLIVIA TERESA MD PROCEDURE: CXR1VW - CHEST 1VW PORTABLE CHEST RADIOGRAPH INDICATION: sob, wheezing COMPARISON: None FINDINGS: Image is somewhat underexposed, but the radiologic examination is still believed to be of reasonable diagnostic quality. Heart size is normal. The pulmonary vascularity and carrington appear normal. Scattered left lung and suspect right lower lung opacities. No significant pleural effusion noted. No pneumothorax detected. IMPRESSION: Left lung pneumonia and suspect early right lung pneumonia. Follow-up chest radiograph is advised in order to ensure resolution. DICTATED BY: JHOANA CLEMONS MD DATE: 06/10/241609 ELECTRONICALLY SIGNED BY: JHOANA CLEMONS MD DATE: 06/10/241612 ] ASSESSMENT: [Sepsis, POA Left lung pneumonia and suspected early right lung pneumonia, POA Suspected community-acquired pneumonia, POA Suspected aspiration pneumonia, POA POA Acute respiratory failure, POA Acute on chronic Asthma exacerbation, POA Hypokalemia, POA Hyponatremia, POA Hypochloremia, POA Hyperglycemia, POA] Morbid obesity, POA PLAN: [Admit to PCCU Patient will be on heart healthy diet Patient will be on O2 supplementation to keep O2 sats greater than 92% We will start patient on nebulization treatment with ipratropium bromide q.6 hours scheduled Patient will be on Solu-Medrol 80 mg every 8 hours We will request pulmonology consultation in the morning for evaluation and treatment of asthma Patient will be started with broad-spectrum IV antibiotics for pneumonia We will request sputum culture We will monitor electrolytes and replete as necessary We will start patient on GI prophylaxis and DVT prophylaxis We will request dietary consultation due to morbid obesity for lifestyle modification and diet modification We will repeat labs tomorrow We will request home medications Patient is a full code Case discussed with the attending physician, above plan was formulated ADVANCED CARE PLANNING 1. Which of the following were discussed? Hospice Care - Yes / No Therapeutic options - Yes / No Advance Directives - Yes / No Other discussions - 2. Discussed with who? Patient 3. Voluntary nature of this service was explained to the patient? Yes / No 4. Amount of time spent - ___20 mins____ 5. Reviewed by Physician? (if this service was performed by NPP) Yes / No ] ATTESTATION BY PHYSICIAN I have seen and examined the patient. I reviewed the documentation, medical decision making, and treatment plan as noted by the mid-level provider above. I agree with the findings and plan of care. Cheryl Forde MD, JANICE B AGNP Jun 10, 2024 17:57
[2024-06-10] MEDS: CEFTRIAXONE 2GM VIAL IVPB SCH (18:00)
[2024-06-10] MEDS ORDERED: ondanSETRON 4MG INJ IVP PRN (18:00)
[2024-06-10] MEDS ORDERED: acetaMINOPHEN 325 MG TAB PO PRN ×2 (18:00)
[2024-06-10] MEDS ORDERED: PoTASSium chloRIDE 20MEQ ER 20 MEQ ERTAB PO PRN (18:00)
[2024-06-10] MEDS ORDERED: metoPROLOL tartRATE 1 MG/ML 5ML VIAL IV PRN (18:00)
[2024-06-10] MEDS: Solu-medROL 125MG VIAL IVP SCH (18:15)
[2024-06-10] MEDS: furoSEMIDE 20MG VIAL IV ONE (18:15)
[2024-06-10 18:40] VITALS: PULSE 114; RESP 22
[2024-06-10] MEDS: IpraTROPium 0.5 MG/2.5 ML INH IH SCH (18:40)
[2024-06-10 18:41] LABS: HEMOGLOBIN A1C 6.2 % (4.0-6.0)
[2024-06-10 18:49] VITALS: PULSE 114; RESP 22; O2SAT 96
[2024-06-10] MEDS: PoTASSium chloRIDE 20MEQ ER 20 MEQ ERTAB PO PRN (19:14)
[2024-06-10] MEDS: MAGNESIUM 2GM PREMIX 50ML 50 ML IV PRN (19:15)
[2024-06-10 20:19] VITALS: TEMP 98.9
[2024-06-10] MEDS: monteLUKAST sodIUM 10 MG TAB PO SCH (21:15)
[2024-06-10] MEDS: FAMOTIDINE 20MG TAB PO SCH (21:15)
[2024-06-10 23:12] VITALS: PULSE 95; RESP 22
[2024-06-11] VITALS (8 sets, daily range): BP systolic 115–135; BP diastolic 78–79; PULSE 90–105; RESP 18–22; TEMP 97.4–98.1; O2SAT 95–96
[2024-06-11] MEDS: guaiFENesin-coDEINE 5 ML SYRUP PO PRN (02:36)
[2024-06-11 08:07] LABS: HEMATOCRIT 37.4 % (36-48); MEAN CORPUSCULAR HEMOGLOBIN 30.2 pg (27.0-33.0); RED BLOOD CELL COUNT(AUTO) 4.2 MIL/uL (4.00-5.50); RED CELL DISTRIBUTION WIDTH 13.1 % (11.0-15.5); WHITE BLOOD COUNT (AUTO) 8.6 K/uL (4.8-10.8)
[2024-06-11 08:30] LABS: BILIRUBIN,TOTAL 0.3 mg/dL (0.2-1.0); CREATININE 0.6 mg/dL (0.5-1.0); MAGNESIUM 2.3 mg/dL (1.80-2.40); POTASSIUM 3.5 mmol/L (3.5-5.1); TOTAL PROTEIN, SERUM 7.6 g/dL (6.0-8.3)
[2024-06-11] MEDS ORDERED: MAGNESIUM 2GM PREMIX 50ML 50 ML IV SCH (08:30)
[2024-06-11] MEDS ORDERED: ondanSETRON ODT 4MG TAB PO PRN (09:00)
--- NOTE | 2024-06-11 09:06 | HMCIMG ---
CT CHEST W/O CONTRAST HISTORY: Pneumonia COMPARISON: 10/01/2023 TECHNIQUE: Multiple sequential axial images of the chest were obtained from the thoracic inlet through upper abdomen. Patient was not given contrast through intravenous route. FINDINGS: Bilateral reticular nodular pulmonary infiltrates are seen with left more than right. Fatty changes of the liver are noted. Postcholecystectomy changes are seen. No pleural effusion or pericardial effusion is seen. There is no evidence of pneumothorax. There are normal size mediastinal and hilar lymph nodes. The heart is not enlarged. Degenerative changes of the thoracolumbar spine are present. There is no evidence of adrenal nodule. IMPRESSION: 1. Bilateral reticular nodular pulmonary infiltrates and groundglass infiltrates with left more than right. CT was performed with one or more following dose reduction techniques: automated exposure control, adjustment of the mA and kv according to patient's size, or use of a iterative reconstruction technique.
[2024-06-11] MEDS: ENOXAPARIN SODIUM 40 MG/0.4 ML SYRINGE SQ SCH (09:31)
[2024-06-11] MEDS: Solu-medROL 40MG VIAL IVP SCH (09:32)
[2024-06-11] MEDS: LORATAdine 10 mg 10 MG TABLET PO SCH (09:33)
[2024-06-11] MEDS: PoTASSium chloRIDE 20MEQ ER 20 MEQ ERTAB PO ONE (09:33)
--- NOTE | 2024-06-11 09:41 | CONS ---
[facility] CONSULTATION NOTE Date Patient Seen: Jun 11, 2024 Time of Visit: 09:41 Supervising Physician: Dr. Lyon Reason for Consultation: Hypoxemic respiratory failure Primary Care Physician: MAMTA SHELTON DO Outpatient Specialists: [ ] Inpatient Consults: Pulmonology PROBLEM LIST: Acute hypoxemic respiratory failure. POA. Bilateral community-acquired pneumoniae POA. Acute on chronic asthma exacerbation POA. Hypomagnesemia. Transaminitis without hyperbilirubinemia. Diabetes mellitus type 2 with hyperglycemia , hemoglobin A1c 6.2. Current smoker with a 8-pack year smoking history. Hypertension. Morbid obesity BMI 45.8 kg/m2. HPI: This is a 43-year-old morbidly obese patient who has past medical history for asthma, hypertension and is a current smoker with a 8 pack year smoking history. Patient report, she is only on a rescue inhaler which she rarely uses. Unfortunately, over the past day she has noted the need for increased use of her rescue inhaler. This progressed to the point where she noticed no improvement with her rescue inhaler and decided to come into the emergency department for further evaluation and management of her condition. Per the patient's report, she was also experiencing off and on febrile events. On presentation to the emergency department, the patient had a febrile event T-max 101.1. On the monitor, she was otherwise hemodynamically stable and was on nasal cannula at 2 L. laboratory data did not show any WBC count elevation all remaining parameters were otherwise unremarkable. Imaging of the chest showed bilateral reticular nodular pulmonary infiltrates and ground-glass opacities left more than right. Respiratory serology was negative for influenza A, B, SARS-CoV-2 and group a rapid strep. Because of the findings, the patient was started on steroid therapy with Solu-Medrol 80 q.8h, azithromycin and Rocephin antibiotic course. The patient was subsequently admitted and because of the history of asthma and shortness of breaths, a preliminary consultation was requested. PAST MEDICAL HX: see above PAST SURGICAL HX: noncontributory SOCIAL HISTORY: No tobacco, ETOH, or illicit drug use Coded Allergies: No Known Drug Allergies (Unverified Allergy, Unknown, 10/01/23) REVIEW OF SYSTEMS: 12 point ROS reviewed with patient. Pertinent positives mentioned above. Otherwise negative. PHYSICAL EXAM: GENERAL: Alert, weak, awake oriented x 3 HEENT: EOMI, Sclera non icteric, moist mucosa NECK: Supple, no JVD, trachea midline LUNGS: Diminished breath sounds bilaterally. No wheezes HEART: Regular rate and rhythm. Normal S1 and S2, without murmurs ABD: Abdomen soft, nontender. Bowel sounds present EXT: No clubbing cyanosis or edema NEURO: Alert and oriented to person, follows commands Vital Signs (last 8hr) Date Time Temp Pulse Resp B/P (MAP) Pulse Ox O2 Delivery O2 Flow Rate FiO2 06/11/24 07:07 100 20 06/11/24 07:05 22 N/Cannula Low lpm 2.0 28 06/11/24 06:04 101 28 137/76 96 Nasal Cannula* 2 28 06/11/24 03:28 92 22 142/84 96 Nasal Cannula* 2 28 LABS: Hematology Labs: Test 06/11/24 07:54 06/10/24 16:09 Range/Units White Blood Count 8.6 4.8-10.8 K/uL Red Blood Count 4.20 4.00-5.50 MIL/uL Hemoglobin 12.7 12.0-16.0 g/dL Hematocrit 37.4 36-48 % Mean Corpuscular Volume 89.0 79-99 fL Mean Corpuscular Hemoglobin 30.2 27.0-33.0 pg Mean Corpuscular Hemoglobin Concent 34.0 32.0-36.0 g/dL Red Cell Distribution Width 13.1 11.0-15.5 % Platelet Count 291 130-400 K/uL Mean Platelet Volume 9.3 7.5-10.5 fL Nucleated Red Blood Cells 0.0 0.0-0.19 % Immature Granulocyte % (Auto) 0.5 0-1 % Neutrophils (%) (Auto) 69.7 40.0-77.0 % Lymphocytes (%) (Auto) 22.3 21.0-51.0 % Monocytes (%) (Auto) 6.9 3.0-13.0 % Eosinophils (%) (Auto) 0.2 0.0-8.0 % Basophils (%) (Auto) 0.4 0.0-5.0 % Neutrophils # (Auto) 5.7 1.8-7.7 K/uL Lymphocytes # (Auto) 1.8 1.0-4.8 K/uL Monocytes # (Auto) 0.6 0.1-1.0 K/uL Eosinophils # (Auto) 0.02 0.00-0.70 K/uL Basophils # (Auto) 0.03 0.00-0.20 K/uL Absolute Immature Granulocyte (auto 0.04 0-1 K/uL Chemistry Labs: Test 06/11/24 07:54 06/10/24 16:09 Range/Units Sodium Level 135 L 136-145 mmol/L Potassium Level 3.5 3.5-5.1 mmol/L Chloride Level 99 L 101-111 mmol/L Carbon Dioxide Level 31 21-32 mmol/L Blood Urea Nitrogen 7 7-18 mg/dL Creatinine 0.6 0.5-1.0 mg/dL Glomerular Filtration Rate Calc 113 >90 mL/min Random Glucose 187 #H 70-105 mg/dL Total Calcium 7.9 L 8.5-10.1 mg/dL Magnesium Level 2.30 1.80-2.40 mg/dL Total Bilirubin 0.3 0.2-1.0 mg/dL Aspartate Amino Transf (AST/SGOT) 90 H 10-37 U/L Alanine Aminotransferase (ALT/SGPT) 116 H 12-78 U/L Alkaline Phosphatase 134 50-136 U/L Total Protein 7.6 6.0-8.3 g/dL Albumin 3.0 L 3.5-5.0 g/dL Hemoglobin A1c 6.2 H 4.0-6.0 % Estimated Average Glucose (eAG) 131 H 70-126 mg/dL Lactic Acid Level 1.7 0.8-2.5 mmol/L Troponin I High Sensitivity 7 4-50 ng/L B-Type Natriuretic Peptide < 5 0-100 pg/mL Procalcitonin 0.06 0.05-0.5 ng/mL DIAGNOSTICS / RADIOLOGY RESULTS: [ ] PLAN Pulmonology consultation was requested due to the acute hypoxemic respiratory failure, the patient is currently stable on nasal cannula 2 L. Agree with continuing the Solu-Medrol at 80 mg q.8 hours. Also agree with the Rocephin Zithromax combination for antibiotic coverage. We will continue with Atrovent for bronchodilation, without albuterol due to the tachycardia. We will repeat a chest x-ray in the morning. We will monitor the patient's progress and response to management. We will continue to provide general supportive care, GI and DVT prophylaxis. Further orders per attending MD and hospital course. NEURO: Minimize central acting medications as possible. Maintain fall precautions, adequate lighting during the day PULMONARY: Supplemental 02 as needed. Maintain aspiration precautions at all times CARDIOVASCULAR: Follow hemodynamics. Vital signs per facility protocol GI & NUTRITION: Continue with nutritional support. Continue stool softeners and laxatives as needed. KIDNEYS & ELECTROLYTES: Strict monitoring of intake, output and overall fluid balance. Avoid nephrotoxic medications to the extent possible. Medications to be dosed according to renal function. Monitor electrolytes and replace as needed ENDOCRINE: Maintain blood glucose between 100-180 at all times. Hypoglycemia protocol in place INFECTIOUS DISEASE: Trend temperature, WBC and procalcitonin level Follow cultures, deescalate antibiotics as soon as possible. Panculture if new onset fever ONCOLOGY/HEMATOLOGY/COAGULATION: Monitor for s/s of bleeding Monitor hemoglobin, coagulation studies as needed SKIN: Pressure ulcer prevention per facility protocol Specialty mattress ORTHO/REHAB: Continue PT/OT Prophylaxis: Continue GI and DVT prophylaxis Code Status: Full Resuscitation Disposition: TBD Other: I personally spent 40 minutes of critical care time in treatment of this patient. This includes patient management, time at bedside, time reviewing tests, labs, appropriate images and studies, documentation, and patient care coordination. This time excludes separately billable procedures. HOLLIS QUIROGA NP Jun 11, 2024 09:41
[2024-06-11] MEDS: fluTICasone proPIONate 50MCG/SPRAY 16 GM BOTTLE NS SCH (10:12)
--- NOTE | 2024-06-11 12:42 | PN ---
[facility] PROGRESS NOTE Date of Service: Jun 11, 2024 Time of Service: 12:[address] Forde SUBJECTIVE: [06/10/24 43-year-old female with past medical history of asthma to the emergency department with complaints of shortness of breaths. Patient is accompanied by her daughter who is also helping with this question and answer. Patient apparently has been having issues of shortness of breaths since Thursday06/06/2024. Patient has been using her albuterol nebulizer treatment but has not improved her condition hence she decided to come to the emergency department. Associated symptoms also include fever which is on and off, weaknes s and lethargy. In the emergency department, her initial vitals showed fever of 101.1 F, HR between [id number], RR 22, BP 146/75, O2 saturation 90% on2 L via nasal cannula. Patient was evaluated in ED room seven, she is short of breath, noted labored breathing and accessory muscle use. Unable to speak, daughter is speaking for her at this time. She is unable to lay flat and sitting on the gurney. Labs will be, hematology is unremarkable, chemistry showed Na 130, K3.3, Cl 93, random glucose 115. Patient was negative for COVID, influenza a/B and strep. Patient was referred to the hospitalist for further evaluation and management. 06/11/24 patient was seen by nurse practitioner and physician during rounding in room ED 12 lying in bed. Patient's magnesium today is 1.7 patient receive 2 g of magnesium. Also patient received 40 mEq of potassium for potassium of 3.5. Chest x-ray showed left lower pneumonia of the early right pneumonia. CT chest showed bilateral reticular nodular pulmonary infiltrates with ground-glass infiltrate. Patient was evaluated by after school program director at this moment we are waiting further recommendations. Patient continues to be on methylprednisolone 80 mg q.8 hours. Patient is on Azithromycin, Rocephin at this moment. Sodium has imporved from 120 to 135. We will continue to monitor patient in the meantime. A.m. labs] REVIEW OF SYSTEMS CONSTITUTIONAL: Denies fevers, chills, or night sweats. No unintentional weight loss reported. NEUROLOGICAL: Denies headache, amaurosis fugax, motor weakness, sensory deficit, vertigo/spinning sensation, gait abnormalities, or tremors. ENT: No hearing loss, otalgia, otorrhea, rhinitis, rhinorrhea, hoarseness, or s ore throat. CARDIOVASCULAR: Denies any exertional angina, dyspnea on exertion, orthopnea, paroxysmal nocturnal dyspnea, palpitations, life-threatening arrhythmias, claudication. PULMONARY: Denies any shortness of breath, cough, phlegm/sputum, hemoptysis, pleuritic chest pain. SLEEP: Denies morning headaches, daytime somnolence or napping. Denies difficulty falling asleep, staying asleep, waking from sleep. Denies knowledge of snoring. GASTROINTESTINAL: Denies any type of dysphagia to either liquids or solids. Denies nausea, vomiting, pyrosis, early satiety, abdominal pain, diarrhea, constipation, or changes in stool consistency or caliber. Denies coffee-ground emesis, hematemesis, hematochezia, or melanotic stools. GENITOURINARY: Denies frequency, urgency, nocturia, hematuria or incontinence (Storage/Irritative symptoms.) Low urinary stream, straining to void, urinary intermittency or hesitancy, splitting of the voiding stream, terminal dribbling. ENDOCRINOLOGIC: Denies polyuria, polydipsia, polyphagia or heat/cold intolerances. HEMATOLOGIC: Denies thrombophilia/previous clots, or coagulopathy/bleeding disorders. ONCOLOGIC: Denies personal history of malignancy. DERMATOLOGIC: Denies rashes or pruritus. PSYCHIATRIC: Denies any suicidal or homicidal ideation. Denies hallucinations. PHYSICAL EXAM GENERAL APPEARANCE: The patient is awake, alert, and oriented, in no acute cardiopulmonary distress. NEUROLOGICAL: Cranial nerves II-XII grossly intact. Motor is 5/5 in bilateral upper and lower extremities proximal to distal. No sensory deficits. HEENT: Face is symmetric. Pupils are equal and reactive. Extraocular movements are intact. NECK: Supple. No JVD. No thyromegaly. No submental, submandibular, pre- /postauricular, occipital or supraclavicular lymphadenopathy. CHEST: Normal chest expansion. No Telemetry. LUNGS: Absence of any rales, rhonchi or any wheezing. CARDIOVASCULAR: Regular. S1 and S2 normal. No appreciable rubs, murmurs or gallops. ABDOMEN: Soft, nontender, and nondistended. There is no rebound, voluntary guarding, or rigidity. : Deferred. No Butt. EXTREMITIES: Non-edematous and not cyanotic. No clubbing. Good capillary refill. SKIN: No skin breakdown. Vital Signs (last 8hr) Date Time Temp Pulse Resp B/P (MAP) Pulse Ox O2 Delivery O2 Flow Rate FiO2 06/11/24 10:55 97.7 94 18 137/98 96 Nasal Cannula* 2 28 06/11/24 10:51 90 18 06/11/24 07:07 100 20 06/11/24 07:05 22 N/Cannula Low lpm 2.0 28 06/11/24 06:04 101 28 137/76 96 Nasal Cannula* 2 28 LABS: Laboratory: Test 06/11/24 07:54 06/10/24 17:35 06/10/24 16:41 06/10/24 16:28 Range/Units White Blood Count 8.6 4.8-10.8 K/uL Red Blood Count 4.20 4.00-5.50 MIL/uL Hemoglobin 12.7 12.0-16.0 g/dL Hematocrit 37.4 36-48 % Mean Corpuscular Volume 89.0 79-99 fL Mean Corpuscular Hemoglobin 30.2 27.0-33.0 pg Mean Corpuscular Hemoglobin Concent 34.0 32.0-36.0 g/dL Red Cell Distribution Width 13.1 11.0-15.5 % Platelet Count 291 130-400 K/uL Mean Platelet Volume 9.3 7.5-10.5 fL Nucleated Red Blood Cells 0.0 0.0-0.19 % Sodium Level 135 L 136-145 mmol/L Potassium Level 3.5 3.5-5.1 mmol/L Chloride Level 99 L 101-111 mmol/L Carbon Dioxide Level 31 21-32 mmol/L Blood Urea Nitrogen 7 7-18 mg/dL Creatinine 0.6 0.5-1.0 mg/dL Glomerular Filtration Rate Calc 113 >90 mL/min Random Glucose 187 #H 70-105 mg/dL Total Calcium 7.9 L 8.5-10.1 mg/dL Magnesium Level 2.30 1.80-2.40 mg/dL Total Bilirubin 0.3 0.2-1.0 mg/dL Aspartate Amino Transf (AST/SGOT) 90 H 10-37 U/L Alanine Aminotransferase (ALT/SGPT) 116 H 12-78 U/L Alkaline Phosphatase 134 50-136 U/L Total Protein 7.6 6.0-8.3 g/dL Albumin 3.0 L 3.5-5.0 g/dL Urine Color COLORLESS YELLOW Urine Appearance CLEAR CLEAR Urine pH 5.5 5.0-8.0 Urine Specific [place] 1.001 1.001-1.031 Urine Protein NEGATIVE NEGATIVE mg/dL Urine Glucose (UA) NEGATIVE NEGATIVE mg/dL Urine Ketones 5 H NEGATIVE mg/dL Urine Occult Blood SMALL H NEGATIVE Urine Nitrate NEGATIVE NEGATIVE Urine Bilirubin NEGATIVE NEGATIVE mg/dL Urine Urobilinogen 0.2 0.2-1.0 mg/dL Urine Leukocyte Esterase NEGATIVE NEGATIVE Pato/uL Urine RBC 0-1 0-1 /HPF Urine WBC 0-1 0-1 /HPF Urine Squamous Epithelial Cells RARE 0-2 /HPF Urine Bacteria None None Seen /HPF Group A Streptococcus Rapid negative NEGATIVE Blood Gas Specimen Type Arterial Arterial Blood pH 7.459 H 7.350-7.450 Arterial Blood Partial Pressure CO2 33 32-45 mmHg Arterial Blood Partial Pressure O2 54.0 *L 83.0-108.0 mmHg Arterial Blood HCO3 22.8 21.0-28.0 mmol/L Arterial Blood Oxygen Saturation 90.0 L 94.0-98.0 % Arterial Blood Base Excess -0.3 -2.0-3.0 mmol/L Blood Gas Temperature 37.0 35.5-37.0 CELSIUS Blood Gas Vent Mode RA ROOM AIR FiO2 21.0 % Blood Gas Specimen Comment [facility] RB Test 06/10/24 16:17 06/10/24 16:09 Range/Units Influenza Type A Antigen Negative For Type A NEGATIVE Influenza Type B Antigen Negative For Type B NEGATIVE SARS-CoV-2 Antigen (Rapid) PRESUMPTIVE NEGATIVE NEGATIVE Immature Granulocyte % (Auto) 0.5 0-1 % Neutrophils (%) (Auto) 69.7 40.0-77.0 % Lymphocytes (%) (Auto) 22.3 21.0-51.0 % Monocytes (%) (Auto) 6.9 3.0-13.0 % Eosinophils (%) (Auto) 0.2 0.0-8.0 % Basophils (%) (Auto) 0.4 0.0-5.0 % Neutrophils # (Auto) 5.7 1.8-7.7 K/uL Lymphocytes # (Auto) 1.8 1.0-4.8 K/uL Monocytes # (Auto) 0.6 0.1-1.0 K/uL Eosinophils # (Auto) 0.02 0.00-0.70 K/uL Basophils # (Auto) 0.03 0.00-0.20 K/uL Absolute Immature Granulocyte (auto 0.04 0-1 K/uL Hemoglobin A1c 6.2 H 4.0-6.0 % Estimated Average Glucose (eAG) 131 H 70-126 mg/dL Lactic Acid Level 1.7 0.8-2.5 mmol/L Troponin I High Sensitivity 7 4-50 ng/L B-Type Natriuretic Peptide < 5 0-100 pg/mL Procalcitonin 0.06 0.05-0.5 ng/mL Current Medications Medications (Trade) Dose Ordered Sig/Juani Route PRN Reason Start Time Stop Time Status Last Admin Dose Admin Acetaminophen (TYLenol 325MG TAB) 650 mg Q4H PRN PO TEMPERATURE GREATER THAN 101.5 06/10/24 18:00 07/10/24 17:59 Acetaminophen (TYLenol 325MG TAB) 650 mg Q6H PRN PO MILD PAIN (1-3) 06/10/24 18:00 07/10/24 17:59 Azithromycin 250 ml @ 250 mls/hr Q24H IVPB 06/11/24 17:30 06/21/24 17:29 Ceftriaxone Sodium (Rocephin 2gm Inj) 2 gm Q24H IVPB 06/10/24 18:00 06/20/24 17:59 Enoxaparin Sodium (Lovenox) 40 mg DAILY SQ 06/11/24 09:00 07/11/24 08:59 06/11/24 09:31 40 MG Famotidine (Pepcid 20mg Tab) 20 mg BID PO 06/10/24 21:00 07/10/24 20:59 06/11/24 09:32 20 MG Fluticasone Propionate (FLOnase 50 mcg/ spray 16g bottle) 1 SPRAY DAILY NS 06/11/24 09:00 07/11/24 08:59 06/11/24 10:12 2 SPRAYS Guaifenesin/ Codeine Phosphate (RobiTUSSin AC 5 ML SYRUP) 5 ml Q6H PRN PO COUGH 06/11/24 01:00 07/11/24 00:59 06/11/24 09:31 5 ML Ipratropium [place] (AtrovENT UD) 0.5 MG [id number] IH 06/10/24 18:00 07/10/24 17:59 06/11/24 10:40 0.5 MG Loratadine (LORATAdine 10 mg) 10 mg DAILY PO 06/11/24 09:00 07/11/24 08:59 06/11/24 09:33 10 MG Magnesium Sulfate 50 ml @ 0 mls/hr PROTOCOL IV 06/11/24 08:30 06/11/24 08:36 DC Magnesium Sulfate 50 ml @ 0 mls/hr PROTOCOL PRN IV MAGNESIUM PROTOCOL 06/10/24 18:00 07/10/24 17:59 06/10/24 19:15 25 MLS/HR Methylprednisolone Sodium Succinate (Solu-medROL 40MG) 80 mg Q8H IVP 06/11/24 10:00 07/10/24 17:59 06/11/24 09:32 80 MG Methylprednisolone Sodium Succinate (Solu-medROL 125MG) 80 mg Q8H IVP 06/10/24 18:00 06/11/24 08:35 DC 06/11/24 02:34 80 MG Metoprolol Tartrate (loprESSOR) 5 mg Q8H PRN IV INCREASED HEART RATE 06/10/24 18:00 07/10/24 17:59 Montelukast Sodium (SinguLAIR) 10 mg HS PO 06/10/24 21:00 07/10/24 20:59 06/10/24 21:15 10 MG Ondansetron HCl (zoFRAN 4MG INJ) 4 mg Q6H PRN IVP NAUSEA/VOMITING 06/10/24 18:00 07/10/24 17:59 Ondansetron HCl (zoFRAN 4MG ODT) 4 mg TIDP PRN PO NAUSEA 06/11/24 09:00 06/11/24 08:36 DC Potassium Chloride 100 ml @ 100 mls/hr AD PRN IV POTASSIUM PROTOCOL 06/10/24 17:30 07/10/24 17:29 Potassium Chloride 100 ml @ 100 mls/hr AD PRN IV POTASSIUM PROTOCOL 06/10/24 18:00 07/10/24 17:59 UNV Potassium Chloride (K-Dur/Klor-Con 20meq) 20 meq AD PRN PO POTASSIUM PROTOCOL 06/10/24 17:30 07/10/24 17:29 06/10/24 19:14 20 MEQ Potassium Chloride (K-Dur/Klor-Con 20meq) 20 meq AD PRN PO POTASSIUM PROTOCOL 06/10/24 18:00 07/10/24 17:59 UNV Potassium Chloride (KCl 10% Elixir 20meq/15ml) 20 meq AD PRN PO POTASSIUM PROTOCOL 06/10/24 17:30 07/10/24 17:29 Potassium Chloride (KCl 10% Elixir 20meq/15ml) 20 meq AD PRN PO POTASSIUM PROTOCOL 06/10/24 18:00 07/10/24 17:59 UNV DIAGNOSTICS / RADIOLOGY: [ ] ASSESSMENT: [Acute Sepsis, POA Acute hypoxic respiratory failure, POA Left lung pneumonia and suspected early right lung pneumonia, POA Suspected community-acquired pneumonia, POA Suspected aspiration pneumonia, POA POA Acute on chronic Asthma exacerbation, POA uncontrolled DM type 2 with hyperglycemia POA moderate malnutrition POA Hypokalemia, POA Hyponatremia, POA Hypochloremia, POA Hyperglycemia, POA hypomagnesemia 1.7 POA] Morbid obesity, POA PLAN: [Admit to [facility] X-ray left lower lung pneumonia and early right pneumonia CT chest showed bilateral reticular nodular pulmonary infiltrate and ground- glass infiltrates Pending pulmonary consultation/recommendations Patient will be on heart healthy diet Patient will be on O2 supplementation to keep O2 sats greater than 92% We will start patient on nebulization treatment with ipratropium bromide q.6 hours scheduled Patient will be on Solu-Medrol 80 mg every 8 hours We will request pulmonology consultation in the morning for evaluation and treatment of asthma Patient will be started with broad-spectrum IV antibiotics for pneumonia We will request sputum culture We will monitor electrolytes and replete as necessary We will start patient on GI prophylaxis and DVT prophylaxis We will request dietary consultation due to morbid obesity for lifestyle modification and diet modification We will repeat labs tomorrow home meds reconcilled by DIVERSIONAL THERAPIST Patient is a full code ATTESTATION BY PHYSICIAN I have seen and examined the patient. I reviewed the documentation, medical de cision making, and treatment plan as noted by the mid-level provider above. I agree with the findings and plan of care. Cheryl Forde MD, [employer] Jun 11, 2024 12:42
[2024-06-11] MEDS: AZITHROMYCIN 500MG+NS 250ML 250 ML IVPB SCH (18:06)
[2024-06-12] VITALS (14 sets, daily range): BP systolic 112–140; BP diastolic 69–90; PULSE 65–95; RESP 18–22; TEMP 97.7–98.7; O2SAT 91–95
[2024-06-12 03:35] LABS: BASOPHILS # (AUTO) 0.02 K/uL (0.00-0.20); BASOPHILS % (AUTO) 0.1 % (0.0-5.0); HEMATOCRIT 35.3 % (36-48); IMMATURE GRANULOCYTE ABSOLUTE 0.07 K/uL (0-1); LYMPHOCYTES # (AUTO) 1.8 K/uL (1.0-4.8); LYMPHOCYTES % (AUTO) 13.4 % (21.0-51.0); MEAN CORPUSCULAR HGB CONC 33.7 g/dL (32.0-36.0); MEAN CORPUSCULAR VOLUME 88.9 fL (79-99); MONOCYTES # (AUTO) 0.5 K/uL (0.1-1.0); MONOCYTES % (AUTO) 3.6 % (3.0-13.0); NEUTROPHILS # (AUTO) 11.1 K/uL (1.8-7.7); NEUTROPHILS % (AUTO) 82.4 % (40.0-77.0); PLATELET COUNT (AUTO) 302 K/uL (130-400); RED BLOOD CELL COUNT(AUTO) 3.97 MIL/uL (4.00-5.50); RED CELL DISTRIBUTION WIDTH 13.2 % (11.0-15.5); WHITE BLOOD COUNT (AUTO) 13.5 K/uL (4.8-10.8)
[2024-06-12 03:50] LABS: ALBUMIN 2.7 g/dL (3.5-5.0); BILIRUBIN,TOTAL 0.3 mg/dL (0.2-1.0); CREATININE 0.6 mg/dL (0.5-1.0); MAGNESIUM 2.2 mg/dL (1.80-2.40); POTASSIUM 3.7 mmol/L (3.5-5.1); TOTAL PROTEIN, SERUM 7.2 g/dL (6.0-8.3)
[2024-06-12] MEDS: PoTASSium chloRIDE 20MEQ ER 20 MEQ ERTAB PO ONE (08:21)
--- NOTE | 2024-06-12 08:24 | HMCIMG ---
CHEST 1VW HISTORY: Asthma COMPARISON: None FINDINGS: A frontal projection of the chest was obtained. There are bilateral pulmonary infiltrates suggestive of pulmonary vascular congestion with possible superimposed pneumonitis. The heart is borderline enlarged. Degenerative changes are seen. No evidence of aortic calcification is seen. IMPRESSION: 1. Bilateral pulmonary infiltrates are seen suggestive of pulmonary vascular congestion with possible superimposed pneumonitis.
--- NOTE | 2024-06-12 10:49 | NUR ---
DC PLAN VISITED WITH PATIENT. PATIENT LIVES WITH SPOUSE. INDEPENDENT ABLE TO PERFORM ADLS. PATIENT HAS NO SERVICES OR DME'S. FEELS SAFE TO RETURN HOME. EXPLAINED PROCESS IF NEEDS O2. ALSO LET THEM KNOW IF WANTING A WALKER WOULD NEED TO HAVE A MEDICAL DIAGNOSIS FOR IT AND WOULD NEED A PT EVAL. ONCE EXPLAINED TO MOM OF PATIENT WHO ASKED PATIENT SAID DID NOT NEED. DID OFFER PRIVATE PAY PRICES SAID NOT NEEDED. Addendum: 06/12/24 at 1053 by ADELFO SEGURA RN CM Amended: Links added.
--- NOTE | 2024-06-12 11:03 | PN ---
[facility] PROGRESS NOTE Date Patient Seen: Jun 12, 2024 Time of Visit: 11:03 Supervising Physician: Dr. Lyon Primary Care Physician: MAMTA SHELTON DO Outpatient Specialists: [ ] Inpatient Consults: Pulmonology PROBLEM LIST: Acute hypoxemic respiratory failure. POA. Bilateral community-acquired pneumoniae POA. Acute on chronic asthma exacerbation POA. Hypomagnesemia. Transaminitis without hyperbilirubinemia. Diabetes mellitus type 2 with hyperglycemia , hemoglobin A1c 6.2. Current smoker with a 8-pack year smoking history. Hypertension. Morbid obesity BMI 45.8 kg/m2. INTERVAL HISTORY: 06/12/2024: At the time of my evaluation, the patient was sitting up on her bed. She will remain on oxygen supplementation via nasal cannula, 2 liters/minute, she is stable on the monitor. Laboratory data today showed a slight increase of WBC to 13.5 probably reactive steroids. On chemistry, there was persisting transaminitis but improved compared to yesterday. On chest x- ray, there is persisting ground-glass opacities/infiltrates. No other complaint. REVIEW OF SYSTEMS: 12 point ROS reviewed with patient. Pertinent positives mentioned above. Ot herwise negative. PHYSICAL EXAM: GENERAL: Alert, weak, awake oriented x 3 HEENT: EOMI, Sclera non icteric, moist mucosa NECK: Supple, no JVD, trachea midline LUNGS: Diminished breath sounds bilaterally. No wheezes HEART: Regular rate and rhythm. Normal S1 and S2, without murmurs ABD: Abdomen soft, nontender. Bowel sounds present EXT: No clubbing cyanosis or edema NEURO: Alert and oriented to person, follows commands Vital Signs (last 8hr) Date Time Temp Pulse Resp B/P (MAP) Pulse Ox O2 Delivery O2 Flow Rate FiO2 06/12/24 07:33 98.1 90 20 112/69 95 Nasal Cannula 2.0 06/12/24 07:06 95 18 06/12/24 07:05 95 22 N/Cannula Low lpm 2.0 28 06/12/24 03:35 98.2 91 18 120/70 92 Nasal Cannula 2.0 LABS: Hematology Labs: Test 06/12/24 03:20 Range/Units White Blood Count 13.5 #H 4.8-10.8 K/uL Red Blood Count 3.97 L 4.00-5.50 MIL/uL Hemoglobin 11.9 L 12.0-16.0 g/dL Hematocrit 35.3 L 36-48 % Mean Corpuscular Volume 88.9 79-99 fL Mean Corpuscular Hemoglobin 30.0 27.0-33.0 pg Mean Corpuscular Hemoglobin Concent 33.7 32.0-36.0 g/dL Red Cell Distribution Width 13.2 11.0-15.5 % Platelet Count 302 130-400 K/uL Mean Platelet Volume 9.1 7.5-10.5 fL Immature Granulocyte % (Auto) 0.5 0-1 % Neutrophils (%) (Auto) 82.4 H 40.0-77.0 % Lymphocytes (%) (Auto) 13.4 L 21.0-51.0 % Monocytes (%) (Auto) 3.6 3.0-13.0 % Eosinophils (%) (Auto) 0.0 0.0-8.0 % Basophils (%) (Auto) 0.1 0.0-5.0 % Neutrophils # (Auto) 11.1 H 1.8-7.7 K/uL Lymphocytes # (Auto) 1.8 1.0-4.8 K/uL Monocytes # (Auto) 0.5 0.1-1.0 K/uL Eosinophils # (Auto) 0.00 0.00-0.70 K/uL Basophils # (Auto) 0.02 0.00-0.20 K/uL Absolute Immature Granulocyte (auto 0.07 0-1 K/uL Nucleated Red Blood Cells 0.0 0.0-0.19 % Chemistry Labs: Test 06/12/24 03:20 06/10/24 16:09 Range/Units Sodium Level 140 136-145 mmol/L Potassium Level 3.7 3.5-5.1 mmol/L Chloride Level 105 101-111 mmol/L Carbon Dioxide Level 29 21-32 mmol/L Blood Urea Nitrogen 10 7-18 mg/dL Creatinine 0.6 0.5-1.0 mg/dL Glomerular Filtration Rate Calc 113 >90 mL/min Random Glucose 199 H 70-105 mg/dL Total Calcium 8.0 L 8.5-10.1 mg/dL Magnesium Level 2.20 1.80-2.40 mg/dL Total Bilirubin 0.3 0.2-1.0 mg/dL Aspartate Amino Transf (AST/SGOT) 66 H 10-37 U/L Alanine Aminotransferase (ALT/SGPT) 95 H 12-78 U/L Alkaline Phosphatase 109 50-136 U/L Total Protein 7.2 6.0-8.3 g/dL Albumin 2.7 L 3.5-5.0 g/dL Hemoglobin A1c 6.2 H 4.0-6.0 % Estimated Average Glucose (eAG) 131 H 70-126 mg/dL Lactic Acid Level 1.7 0.8-2.5 mmol/L Troponin I High Sensitivity 7 4-50 ng/L B-Type Natriuretic Peptide < 5 0-100 pg/mL Procalcitonin 0.06 0.05-0.5 ng/mL DIAGNOSTICS / RADIOLOGY RESULTS: [ ] PLAN Pulmonology consultation was requested due to the acute hypoxemic respiratory failure, the patient is currently stable on nasal cannula 2 L. Agree with continuing the Solu-Medrol at 80 mg q.8 hours. Also agree with the Rocephin Zithromax combination for antibiotic coverage. We will continue with Atrovent for bronchodilation, without albuterol due to the tachycardia. We will repeat a chest x-ray in the morning. We will monitor the patient's progress and response to management. We will continue to provide general supportive care, GI and DVT prophylaxis. Further orders per attending MD and hospital course. 06/12/2024: For now, we are going to continue current management for the apl ent. She will remain on oxygen supplementation via nasal cannula and we will wean off as appropriate. She will continue on antibiotic coverage with Zithromax and Rocephin as well as IV steroids. I am going to request a respiratory culture. We will replace his electrolyte deficits per the protocol. We will monitor the patient's progress and response to management. Further orders per attending MD and hospital course. NEURO: Minimize central acting medications as possible. Maintain fall precautions, adequate lighting during the day PULMONARY: Supplemental 02 as needed. Maintain aspiration precautions at all times CARDIOVASCULAR: Follow hemodynamics. Vital signs per facility protocol GI & NUTRITION: Continue with nutritional support. Continue stool softeners and laxatives as needed. KIDNEYS & ELECTROLYTES: Strict monitoring of intake, output and overall fluid balance. Avoid nephrotoxic medications to the extent possible. Medications to be dosed according to renal function. Monitor electrolytes and replace as needed ENDOCRINE: Maintain blood glucose between 100-180 at all times. Hypoglycemia protocol in place INFECTIOUS DISEASE: Trend temperature, WBC and procalcitonin level Follow cultures, deescalate antibiotics as soon as possible. Panculture if new onset fever ONCOLOGY/HEMATOLOGY/COAGULATION: Monitor for s/s of bleeding Monitor hemoglobin, coagulation studies as needed SKIN: Pressure ulcer prevention per facility protocol Specialty mattress ORTHO/REHAB: Continue PT/OT Prophylaxis: Continue GI and DVT prophylaxis Code Status: Full Resuscitation Disposition: TBD Other: HOLLIS QUIROGA NP Jun 12, 2024 11:03
[2024-06-12] MEDS: SODIUM CHLORIDE 3% FOR INHALATION 4 ML/AMP VIAL.NEB IH ONE ×3 (11:06→23:19)
--- NOTE | 2024-06-12 11:46 | PN ---
[facility] PROGRESS NOTE Date of Service: Jun 12, 2024 Time of Service: 11:[address] Forde SUBJECTIVE: [06/10/24 43-year-old female with past medical history of asthma to the emergency department with complaints of shortness of breaths. Patient is accompanied by her daughter who is also helping with this question and answer. Patient apparently has been having issues of shortness of breaths since Thursday06/06/2024. Patient has been using her albuterol nebulizer treatment but has not improved her condition hence she decided to come to the emergency department. Associated symptoms also include fever which is on and off, weakness and lethargy. In the emergency department, her initial vitals showed fever of 101.1 F, HR between [id number], RR 22, BP 146/75, O2 saturation 90% on2 L via nasal cannula. Patient was evaluated in ED room seven, she is short of breath, noted labored breathing and accessory muscle use. Unable to speak, daughter is speaking for her at this time. She is unable to lay flat and sitting on the gurney. Labs will be, hematology is unremarkable, chemistry showed Na 130, K3.3, Cl 93, random glucose 115. Patient was negative for COVID, influenza a/B and strep. Patient was referred to the hospitalist for further evaluation and management. 06/11/24 patient was seen by nurse practitioner and physician during rounding in room ED 12 lying in bed. Patient's magnesium today is 1.7 patient receive 2 g of magnesium. Also patient received 40 mEq of potassium for potassium of 3.5. Chest x-ray showed left lower pneumonia of the early right pneumonia. CT chest showed bilateral reticular nodular pulmonary infiltrates with ground-glass infiltrate. Patient was evaluated by lead net software developer at this moment we are waiting further recommendations. Patient continues to be on methylprednisolone 80 mg q.8 hours. Patient is on Azithromycin, Rocephin at this moment. Sodium has imporved from 120 to 135. We will continue to monitor patient in the meantime. A.m. labs 06/12 patient was seen by nurse practitioner physician during rounding in room 202. Patient continues to be on azithromycin and ceftriaxone. Patient is on room air at this moment we will lower steroids methylprednisolone to 40 b.i.d.. Patient will also receive nicotine patch since she has a current smoker of half pack a day. Chest x-ray showed bilateral infiltrate vascular congestion pneumonitis. Dietary was consulted. Pulmonology on case. Blood and sputum culture pending. We will continue to monitor patient in the meantime. A.m. lab] REVIEW OF SYSTEMS CONSTITUTIONAL: Denies fevers, chills, or night sweats. No unintentional weight loss reported. NEUROLOGICAL: Denies headache, amaurosis fugax, motor weakness, sensory deficit, vertigo/spinning sensation, gait abnormalities, or tremors. ENT: No hearing loss, otalgia, otorrhea, rhinitis, rhinorrhea, hoarseness, or sore throat. CARDIOVASCULAR: Denies any exertional angina, dyspnea on exertion, orthopnea, paroxysmal nocturnal dyspnea, palpitations, life-threatening arrhythmias, claudication. PULMONARY: Denies any shortness of breath, cough, phlegm/sputum, hemoptysis, pleuritic chest pain. SLEEP: Denies morning headaches, daytime somnolence or napping. Denies difficulty falling asleep, staying asleep, waking from sleep. Denies knowledge of snoring. GASTROINTESTINAL: Denies any type of dysphagia to either liquids or solids. Denies nausea, vomiting, pyrosis, early satiety, abdominal pain, diarrhea, constipation, or changes in stool consistency or caliber. Denies coffee-ground emesis, hematemesis, hematochezia, or melanotic stools. GENITOURINARY: Denies frequency, urgency, nocturia, hematuria or incontinence (Storage/Irritative symptoms.) Low urinary stream, straining to void, urinary intermittency or hesitancy, splitting of the voiding stream, terminal dribbling. ENDOCRINOLOGIC: Denies polyuria, polydipsia, polyphagia or heat/cold intolerances. HEMATOLOGIC: Denies thrombophilia/previous clots, or coagulopathy/bleeding disorders. ONCOLOGIC: Denies personal history of malignancy. DERMATOLOGIC: Denies rashes or pruritus. PSYCHIATRIC: Denies any suicidal or homicidal ideation. Denies hallucinations. PHYSICAL EXAM: GENERAL: Alert, weak, awake oriented x 3 HEENT: EOMI, Sclera non icteric, moist mucosa NECK: Supple, no JVD, trachea midline LUNGS: Diminished breath sounds bilaterally. No wheezes HEART: Regular rate and rhythm. Normal S1 and S2, without murmurs ABD: Abdomen soft, nontender. Bowel sounds present EXT: No clubbing cyanosis or edema NEURO: Alert and oriented to person, follows commands Vital Signs (last 8hr) Date Time Temp Pulse Resp B/P (MAP) Pulse Ox O2 Delivery O2 Flow Rate FiO2 06/12/24 11:31 98.6 68 20 119/82 98 Nasal Cannula 2.0 06/12/24 11:07 90 18 06/12/24 07:33 98.1 90 20 112/69 95 Nasal Cannula 2.0 06/12/24 07:06 95 18 06/12/24 07:05 95 22 N/Cannula Low lpm 2.0 28 LABS: Laboratory: Test 06/12/24 03:20 06/10/24 17:35 06/10/24 16:41 06/10/24 16:28 Range/Units White Blood Count 13.5 #H 4.8-10.8 K/uL Red Blood Count 3.97 L 4.00-5.50 MIL/uL Hemoglobin 11.9 L 12.0-16.0 g/dL Hematocrit 35.3 L 36-48 % Mean Corpuscular Volume 88.9 79-99 fL Mean Corpuscular Hemoglobin 30.0 27.0-33.0 pg Mean Corpuscular Hemoglobin Concent 33.7 32.0-36.0 g/dL Red Cell Distribution Width 13.2 11.0-15.5 % Platelet Count 302 130-400 K/uL Mean Platelet Volume 9.1 7.5-10.5 fL Immature Granulocyte % (Auto) 0.5 0-1 % Neutrophils (%) (Auto) 82.4 H 40.0-77.0 % Lymphocytes (%) (Auto) 13.4 L 21.0-51.0 % Monocytes (%) (Auto) 3.6 3.0-13.0 % Eosinophils (%) (Auto) 0.0 0.0-8.0 % Basophils (%) (Auto) 0.1 0.0-5.0 % Neutrophils # (Auto) 11.1 H 1.8-7.7 K/uL Lymphocytes # (Auto) 1.8 1.0-4.8 K/uL Monocytes # (Auto) 0.5 0.1-1.0 K/uL Eosinophils # (Auto) 0.00 0.00-0.70 K/uL Basophils # (Auto) 0.02 0.00-0.20 K/uL Absolute Immature Granulocyte (auto 0.07 0-1 K/uL Nucleated Red Blood Cells 0.0 0.0-0.19 % Sodium Level 140 136-145 mmol/L Potassium Level 3.7 3.5-5.1 mmol/L Chloride Level 105 101-111 mmol/L Carbon Dioxide Level 29 21-32 mmol/L Blood Urea Nitrogen 10 7-18 mg/dL Creatinine 0.6 0.5-1.0 mg/dL Glomerular Filtration Rate Calc 113 >90 mL/min Random Glucose 199 H 70-105 mg/dL Total Calcium 8.0 L 8.5-10.1 mg/dL Magnesium Level 2.20 1.80-2.40 mg/dL Total Bilirubin 0.3 0.2-1.0 mg/dL Aspartate Amino Transf (AST/SGOT) 66 H 10-37 U/L Alanine Aminotransferase (ALT/SGPT) 95 H 12-78 U/L Alkaline Phosphatase 109 50-136 U/L Total Protein 7.2 6.0-8.3 g/dL Albumin 2.7 L 3.5-5.0 g/dL Urine Color COLORLESS YELLOW Urine Appearance CLEAR CLEAR Urine pH 5.5 5.0-8.0 Urine Specific [place] 1.001 1.001-1.031 Urine Protein NEGATIVE NEGATIVE mg/dL Urine Glucose (UA) NEGATIVE NEGATIVE mg/dL Urine Ketones 5 H NEGATIVE mg/dL Urine Occult Blood SMALL H NEGATIVE Urine Nitrate NEGATIVE NEGATIVE Urine Bilirubin NEGATIVE NEGATIVE mg/dL Urine Urobilinogen 0.2 0.2-1.0 mg/dL Urine Leukocyte Esterase NEGATIVE NEGATIVE Pato/uL Urine RBC 0-1 0-1 /HPF Urine WBC 0-1 0-1 /HPF Urine Squamous Epithelial Cells RARE 0-2 /HPF Urine Bacteria None None Seen /HPF Group A Streptococcus Rapid negative NEGATIVE Blood Gas Specimen Type Arterial Arterial Blood pH 7.459 H 7.350-7.450 Arterial Blood Partial Pressure CO2 33 32-45 mmHg Arterial Blood Partial Pressure O2 54.0 *L 83.0-108.0 mmHg Arterial Blood HCO3 22.8 21.0-28.0 mmol/L Arterial Blood Oxygen Saturation 90.0 L 94.0-98.0 % Arterial Blood Base Excess -0.3 -2.0-3.0 mmol/L Blood Gas Temperature 37.0 35.5-37.0 CELSIUS Blood Gas Vent Mode RA ROOM AIR FiO2 21.0 % Blood Gas Specimen Comment ANKITA RN RB Test 06/10/24 16:17 06/10/24 16:09 Range/Units Influenza Type A Antigen Negative For Type A NEGATIVE Influenza Type B Antigen Negative For Type B NEGATIVE SARS-CoV-2 Antigen (Rapid) PRESUMPTIVE NEGATIVE NEGATIVE Hemoglobin A1c 6.2 H 4.0-6.0 % Estimated Average Glucose (eAG) 131 H 70-126 mg/dL Lactic Acid Level 1.7 0.8-2.5 mmol/L Troponin I High Sensitivity 7 4-50 ng/L B-Type Natriuretic Peptide < 5 0-100 pg/mL Procalcitonin 0.06 0.05-0.5 ng/mL Current Medications Medications (Trade) Dose Ordered Sig/Juani Route PRN Reason Start Time Stop Time Status Last Admin Dose Admin Acetaminophen (TYLenol 325MG TAB) 650 mg Q4H PRN PO TEMPERATURE GREATER THAN 101.5 06/10/24 18:00 07/10/24 17:59 Acetaminophen (TYLenol 325MG TAB) 650 mg Q6H PRN PO MILD PAIN (1-3) 06/10/24 18:00 07/10/24 17:59 Azithromycin 250 ml @ 250 mls/hr Q24H IVPB 06/11/24 17:30 06/21/24 17:29 06/11/24 18:06 250 MLS/HR Ceftriaxone Sodium (Rocephin 2gm Inj) 2 gm Q24H IVPB 06/10/24 18:00 06/20/24 17:59 06/11/24 15:24 2 GM Enoxaparin Sodium (Lovenox) 40 mg DAILY SQ 06/11/24 09:00 07/11/24 08:59 06/12/24 08:22 40 MG Famotidine (Pepcid 20mg Tab) 20 mg BID PO 06/10/24 21:00 07/10/24 20:59 06/12/24 08:21 20 MG Fluticasone Propionate (FLOnase 50 mcg/ spray 16g bottle) 1 SPRAY DAILY NS 06/11/24 09:00 07/11/24 08:59 06/12/24 08:27 1 SPRAYS Guaifenesin/ Codeine Phosphate (RobiTUSSin AC 5 ML SYRUP) 5 ml Q6H PRN PO COUGH 06/11/24 01:00 07/11/24 00:59 06/12/24 08:25 5 ML Ipratropium [place] (AtrovENT UD) 0.5 MG [id number] IH 06/10/24 18:00 07/10/24 17:59 06/12/24 11:05 0.5 MG Loratadine (LORATAdine 10 mg) 10 mg DAILY PO 06/11/24 09:00 07/11/24 08:59 06/12/24 08:22 10 MG Magnesium Sulfate 50 ml @ 0 mls/hr PROTOCOL IV 06/11/24 08:30 06/11/24 08:36 DC Magnesium Sulfate 50 ml @ 0 mls/hr PROTOCOL PRN IV MAGNESIUM PROTOCOL 06/10/24 18:00 07/10/24 17:59 06/10/24 19:15 25 MLS/HR Methylprednisolone Sodium Succinate (Solu-medROL 40MG) 80 mg Q8H IVP 06/11/24 10:00 07/10/24 17:59 06/12/24 08:25 80 MG Methylprednisolone Sodium Succinate (Solu-medROL 125MG) 80 mg Q8H IVP 06/10/24 18:00 06/11/24 08:35 DC 06/11/24 02:34 80 MG Metoprolol Tartrate (loprESSOR) 5 mg Q8H PRN IV INCREASED HEART RATE 06/10/24 18:00 07/10/24 17:59 Montelukast Sodium (SinguLAIR) 10 mg HS PO 06/10/24 21:00 07/10/24 20:59 06/11/24 20:31 10 MG Ondansetron HCl (zoFRAN 4MG INJ) 4 mg Q6H PRN IVP NAUSEA/VOMITING 06/10/24 18:00 07/10/24 17:59 Ondansetron HCl (zoFRAN 4MG ODT) 4 mg TIDP PRN PO NAUSEA 06/11/24 09:00 06/11/24 08:36 DC Potassium Chloride 100 ml @ 100 mls/hr AD PRN IV POTASSIUM PROTOCOL 06/10/24 17:30 07/10/24 17:29 Potassium Chloride 100 ml @ 100 mls/hr AD PRN IV POTASSIUM PROTOCOL 06/10/24 18:00 07/10/24 17:59 UNV Potassium Chloride (K-Dur/Klor-Con 20meq) 20 meq AD PRN PO POTASSIUM PROTOCOL 06/10/24 17:30 07/10/24 17:29 06/10/24 19:14 20 MEQ Potassium Chloride (K-Dur/Klor-Con 20meq) 20 meq AD PRN PO POTASSIUM PROTOCOL 06/10/24 18:00 07/10/24 17:59 UNV Potassium Chloride (KCl 10% Elixir 20meq/15ml) 20 meq AD PRN PO POTASSIUM PROTOCOL 06/10/24 17:30 07/10/24 17:29 Potassium Chloride (KCl 10% Elixir 20meq/15ml) 20 meq AD PRN PO POTASSIUM PROTOCOL 06/10/24 18:00 07/10/24 17:59 UNV DIAGNOSTICS / RADIOLOGY: [ ] ASSESSMENT: [Acute Sepsis, POA Acute hypoxic respiratory failure, POA Left lung pneumonia and suspected early right lung pneumonia, POA Suspected aspiration pneumonia, POA POA Acute on chronic Asthma exacerbation, POA uncontrolled DM type 2 with hyperglycemia POA moderate malnutrition POA Hypokalemia, POA Hyponatremia, POA Hypochloremia, POA Hyperglycemia, POA hypomagnesemia 1.7 POA] Morbid obesity, POA PLAN: [Admit to PCCU 06/10 X-ray left lower lung pneumonia and early right pneumonia 06/12 chest x-ray bilateral pulmonary infiltrate suggestive of pulmonary vascular congestion with a possible superimposed pneumonitis CT chest showed bilateral reticular nodular pulmonary infiltrate and ground- glass infiltrates Decrease methylprednisolone to 40 mg b.i.d. . Sputum culture pending Patient will be on heart healthy diet Patient will be on O2 supplementation to keep O2 sats greater than 92% We will start patient on nebulization treatment with ipratropium bromide q.6 hours scheduled Patient will be on Solu-Medrol 80 mg every 8 hours We will request pulmonology consultation in the morning for evaluation and treatment of asthma Patient will be started with broad-spectrum IV antibiotics for pneumonia We will request sputum culture We will monitor electrolytes and replete as necessary We will start patient on GI prophylaxis and DVT prophylaxis We will request dietary consultation due to morbid obesity for lifestyle modification and diet modification We will repeat labs tomorrow home meds reconcilled by RESERVATION AGENT Nicotine patch daily case management for disposition PT evaluation Patient is a full code ATTESTATION BY PHYSICIAN I have seen and examined the patient. I reviewed the documentation, medical decision making, and treatment plan as noted by the mid-level provider above. I agree with the findings and plan of care. Cheryl Forde MD, KATARZYNA B APRN Jun 12, 2024 11:46
[2024-06-12] MEDS: NICOTINE 14 MG/ 24 HR PATCH TD SCH (19:54)
[2024-06-12] MEDS: Solu-medROL 40MG VIAL IVP SCH (19:54)
[2024-06-13] VITALS (14 sets, daily range): BP systolic 115–149; BP diastolic 80–91; PULSE 72–102; RESP 18–20; TEMP 97.5–98.2; O2SAT 87–96
[2024-06-13 04:06] LABS: BASOPHILS # (AUTO) 0.03 K/uL (0.00-0.20); BASOPHILS % (AUTO) 0.2 % (0.0-5.0); HEMATOCRIT 34.3 % (36-48); MEAN CORPUSCULAR HEMOGLOBIN 30.1 pg (27.0-33.0); MEAN CORPUSCULAR HGB CONC 33.5 g/dL (32.0-36.0); MEAN CORPUSCULAR VOLUME 89.8 fL (79-99); MONOCYTES # (AUTO) 0.5 K/uL (0.1-1.0); MONOCYTES % (AUTO) 3.9 % (3.0-13.0); NEUTROPHILS # (AUTO) 10.3 K/uL (1.8-7.7); NEUTROPHILS % (AUTO) 78.6 % (40.0-77.0); PLATELET COUNT (AUTO) 344 K/uL (130-400); RED BLOOD CELL COUNT(AUTO) 3.82 MIL/uL (4.00-5.50); RED CELL DISTRIBUTION WIDTH 13.3 % (11.0-15.5)
[2024-06-13 05:58] LABS: ALBUMIN 2.7 g/dL (3.5-5.0); BILIRUBIN,TOTAL 0.2 mg/dL (0.2-1.0); CREATININE 0.6 mg/dL (0.5-1.0); MAGNESIUM 2.1 mg/dL (1.80-2.40); POTASSIUM 3.8 mmol/L (3.5-5.1)
--- NOTE | 2024-06-13 11:44 | PN ---
[facility] PROGRESS NOTE Date of Service: Jun 13, 2024 Time of Service: 11:[address] Hurst SUBJECTIVE: [06/10/24 43-year-old female with past medical history of asthma to the emergency department with complaints of shortness of breaths. Patient is accompanied by her daughter who is also helping with this question and answer. Patient apparently has been having issues of shortness of breaths since Thursday06/06/2024. Patient has been using her albuterol nebulizer treatment but has not improved her condition hence she decided to come to the emergency department. Associated symptoms also include fever which is on and off, weakness and lethargy. In the emergency department, her initial vitals showed fever of 101.1 F, HR between [id number], RR 22, BP 146/75, O2 saturation 90% on2 L via nasal cannula. Patient was evaluated in ED room seven, she is short of breath, noted labored breathing and accessory muscle use. Unable to speak, daughter is speaking for her at this time. She is unable to lay flat and sitting on the gurney. Labs will be, hematology is unremarkable, chemistry showed Na 130, K3.3, Cl 93, random glucose 115. Patient was negative for COVID, influenza a/B and strep. Patient was referred to the hospitalist for further evaluation and management. 06/11/24 patient was seen by nurse practitioner and physician during rounding in room ED 12 lying in bed. Patient's magnesium today is 1.7 patient receive 2 g of magnesium. Also patient received 40 mEq of potassium for potassium of 3.5. Chest x-ray showed left lower pneumonia of the early right pneumonia. CT chest showed bilateral reticular nodular pulmonary infiltrates with ground-glass infiltrate. Patient was evaluated by intrusion analyst at this moment we are waiting further recommendations. Patient continues to be on methylprednisolone 80 mg q.8 hours. Patient is on Azithromycin, Rocephin at this moment. Sodium has imporved from 120 to 135. We will continue to monitor patient in the meantime. A.m. labs 06/12 patient was seen by nurse practitioner physician during rounding in room 202. Patient continues to be on azithromycin and ceftriaxone. Patient is on room air at this moment we will lower steroids methylprednisolone to 40 b.i.d.. Patient will also receive nicotine patch since she has a current smoker of half pack a day. Chest x-ray showed bilateral infiltrate vascular congestion pneumonitis. Dietary was consulted. Pulmonology on case. Blood and sputum culture pending. We will continue to monitor patient in the meantime. A.m. lab 06/13 patient was seen by VIDEOGAME TESTER and physician during rounding. Patient's WBC today is at 13 which could be due to steroids on board methylprednisolone 40 mg b.i.d.. Patient continues to be on azithromycin and Rocephin. Patient is also a half pack smoker nicotine patch was added to patient's daily regimen. Final urine cultures negative blood culture 48 hours negative sputum culture pending. prior discharge we will request the patient undergo 6 minute walk with PT. We will continue to monitor patient in the meantime. A.m. labs.] REVIEW OF SYSTEMS CONSTITUTIONAL: Denies fevers, chills, or night sweats. No unintentional weight loss reported. NEUROLOGICAL: Denies headache, amaurosis fugax, motor weakness, sensory deficit, vertigo/spinning sensation, gait abnormalities, or tremors. ENT: No hearing loss, otalgia, otorrhea, rhinitis, rhinorrhea, hoarseness, or sore throat. CARDIOVASCULAR: Denies any exertional angina, dyspnea on exertion, orthopnea, paroxysmal nocturnal dyspnea, palpitations, life-threatening arrhythmias, claudication. PULMONARY: Denies any shortness of breath, cough, phlegm/sputum, hemoptysis, pleuritic chest pain. SLEEP: Denies morning headaches, daytime somnolence or napping. Denies difficulty falling asleep, staying asleep, waking from sleep. Denies knowledge of snoring. GASTROINTESTINAL: Denies any type of dysphagia to either liquids or solids. Denies nausea, vomiting, pyrosis, early satiety, abdominal pain, diarrhea, constipation, or changes in stool consistency or caliber. Denies coffee-ground emesis, hematemesis, hematochezia, or melanotic stools. GENITOURINARY: Denies frequency, urgency, nocturia, hematuria or incontinence (Storage/Irritative symptoms.) Low urinary stream, straining to void, urinary intermittency or hesitancy, splitting of the voiding stream, terminal dribbling. ENDOCRINOLOGIC: Denies polyuria, polydipsia, polyphagia or heat/cold intolerances. HEMATOLOGIC: Denies thrombophilia/previous clots, or coagulopathy/bleeding disorders. ONCOLOGIC: Denies personal history of malignancy. DERMATOLOGIC: Denies rashes or pruritus. PSYCHIATRIC: Denies any suicidal or homicidal ideation. Denies hallucinations. PHYSICAL EXAM: GENERAL: Alert, weak, awake oriented x 3 HEENT: EOMI, Sclera non icteric, moist mucosa NECK: Supple, no JVD, trachea midline LUNGS: Diminished breath sounds bilaterally. No wheezes HEART: Regular rate and rhythm. Normal S1 and S2, without murmurs ABD: Abdomen soft, nontender. Bowel sounds present EXT: No clubbing cyanosis or edema NEURO: Alert and oriented to person, follows commands Vital Signs (last 8hr) Date Time Temp Pulse Resp B/P (MAP) Pulse Ox O2 Delivery O2 Flow Rate FiO2 06/13/24 11:35 98.1 80 18 149/87 95 Nasal Cannula 2.0 06/13/24 09:00 95 Nasal Cannula* 2 28 06/13/24 08:19 80 20 N/Cannula Low lpm 2.0 28 06/13/24 08:17 80 18 06/13/24 08:06 97.9 77 18 136/91 97 Nasal Cannula 2.0 LABS: Laboratory: Test 06/13/24 03:49 Range/Units White Blood Count 13.0 H 4.8-10.8 K/uL Red Blood Count 3.82 L 4.00-5.50 MIL/uL Hemoglobin 11.5 L 12.0-16.0 g/dL Hematocrit 34.3 L 36-48 % Mean Corpuscular Volume 89.8 79-99 fL Mean Corpuscular Hemoglobin 30.1 27.0-33.0 pg Mean Corpuscular Hemoglobin Concent 33.5 32.0-36.0 g/dL Red Cell Distribution Width 13.3 11.0-15.5 % Platelet Count 344 130-400 K/uL Mean Platelet Volume 9.1 7.5-10.5 fL Immature Granulocyte % (Auto) 2.3 H 0-1 % Neutrophils (%) (Auto) 78.6 H 40.0-77.0 % Lymphocytes (%) (Auto) 15.0 L 21.0-51.0 % Monocytes (%) (Auto) 3.9 3.0-13.0 % Eosinophils (%) (Auto) 0.0 0.0-8.0 % Basophils (%) (Auto) 0.2 0.0-5.0 % Neutrophils # (Auto) 10.3 H 1.8-7.7 K/uL Lymphocytes # (Auto) 2.0 1.0-4.8 K/uL Monocytes # (Auto) 0.5 0.1-1.0 K/uL Eosinophils # (Auto) 0.00 0.00-0.70 K/uL Basophils # (Auto) 0.03 0.00-0.20 K/uL Absolute Immature Granulocyte (auto 0.30 0-1 K/uL Nucleated Red Blood Cells 0.0 0.0-0.19 % Sodium Level 142 136-145 mmol/L Potassium Level 3.8 3.5-5.1 mmol/L Chloride Level 105 101-111 mmol/L Carbon Dioxide Level 28 21-32 mmol/L Blood Urea Nitrogen 13 7-18 mg/dL Creatinine 0.6 0.5-1.0 mg/dL Glomerular Filtration Rate Calc 113 >90 mL/min Random Glucose 174 H 70-105 mg/dL Total Calcium 8.1 L 8.5-10.1 mg/dL Magnesium Level 2.10 1.80-2.40 mg/dL Total Bilirubin 0.2 0.2-1.0 mg/dL Aspartate Amino Transf (AST/SGOT) 51 H 10-37 U/L Alanine Aminotransferase (ALT/SGPT) 88 H 12-78 U/L Alkaline Phosphatase 95 50-136 U/L Total Protein 7.0 6.0-8.3 g/dL Albumin 2.7 L 3.5-5.0 g/dL Current Medications Medications (Trade) Dose Ordered Sig/Juani Route PRN Reason Start Time Stop Time Status Last Admin Dose Admin Acetaminophen (TYLenol 325MG TAB) 650 mg Q4H PRN PO TEMPERATURE GREATER THAN 101.5 06/10/24 18:00 07/10/24 17:59 Acetaminophen (TYLenol 325MG TAB) 650 mg Q6H PRN PO MILD PAIN (1-3) 06/10/24 18:00 07/10/24 17:59 Azithromycin 250 ml @ 250 mls/hr Q24H IVPB 06/11/24 17:30 06/21/24 17:29 06/12/24 17:32 250 MLS/HR Ceftriaxone Sodium (Rocephin 2gm Inj) 2 gm Q24H IVPB 06/10/24 18:00 06/20/24 17:59 06/12/24 17:32 2 GM Enoxaparin Sodium (Lovenox) 40 mg DAILY SQ 06/11/24 09:00 07/11/24 08:59 06/13/24 08:22 40 MG Famotidine (Pepcid 20mg Tab) 20 mg BID PO 06/10/24 21:00 07/10/24 20:59 06/13/24 08:20 20 MG Fluticasone Propionate (FLOnase 50 mcg/ spray 16g bottle) 1 SPRAY DAILY NS 06/11/24 09:00 07/11/24 08:59 06/13/24 08:23 1 SPRAYS Guaifenesin/ Codeine Phosphate (RobiTUSSin AC 5 ML SYRUP) 5 ml Q6H PRN PO COUGH 06/11/24 01:00 07/11/24 00:59 06/13/24 08:30 5 ML Ipratropium [place] (AtrovENT UD) 0.5 MG [id number] IH 06/10/24 18:00 07/10/24 17:59 06/13/24 08:17 0.5 MG Loratadine (LORATAdine 10 mg) 10 mg DAILY PO 06/11/24 09:00 07/11/24 08:59 06/13/24 08:20 10 MG Magnesium Sulfate 50 ml @ 0 mls/hr PROTOCOL IV 06/11/24 08:30 06/11/24 08:36 DC Magnesium Sulfate 50 ml @ 0 mls/hr PROTOCOL PRN IV MAGNESIUM PROTOCOL 06/10/24 18:00 07/10/24 17:59 06/10/24 19:15 25 MLS/HR Methylprednisolone Sodium Succinate (Solu-medROL 40MG) 40 mg BID IVP 06/12/24 21:00 07/10/24 17:59 06/13/24 08:16 40 MG Methylprednisolone Sodium Succinate (Solu-medROL 40MG) 80 mg Q8H IVP 06/11/24 10:00 06/12/24 17:18 DC 06/12/24 08:25 80 MG Methylprednisolone Sodium Succinate (Solu-medROL 125MG) 80 mg Q8H IVP 06/10/24 18:00 06/11/24 08:35 DC 06/11/24 02:34 80 MG Metoprolol Tartrate (loprESSOR) 5 mg Q8H PRN IV INCREASED HEART RATE 06/10/24 18:00 07/10/24 17:59 Montelukast Sodium (SinguLAIR) 10 mg HS PO 06/10/24 21:00 07/10/24 20:59 06/12/24 19:54 10 MG Nicotine (Nicoderm) 14 mg DAILY TD 06/12/24 21:00 07/12/24 20:59 06/13/24 08:20 14 MG Ondansetron HCl (zoFRAN 4MG INJ) 4 mg Q6H PRN IVP NAUSEA/VOMITING 06/10/24 18:00 07/10/24 17:59 Ondansetron HCl (zoFRAN 4MG ODT) 4 mg TIDP PRN PO NAUSEA 06/11/24 09:00 06/11/24 08:36 DC Potassium Chloride 100 ml @ 100 mls/hr AD PRN IV POTASSIUM PROTOCOL 06/10/24 17:30 07/10/24 17:29 Potassium Chloride 100 ml @ 100 mls/hr AD PRN IV POTASSIUM PROTOCOL 06/10/24 18:00 07/10/24 17:59 UNV Potassium Chloride (K-Dur/Klor-Con 20meq) 20 meq AD PRN PO POTASSIUM PROTOCOL 06/10/24 17:30 07/10/24 17:29 06/10/24 19:14 20 MEQ Potassium Chloride (K-Dur/Klor-Con 20meq) 20 meq AD PRN PO POTASSIUM PROTOCOL 06/10/24 18:00 07/10/24 17:59 UNV Potassium Chloride (KCl 10% Elixir 20meq/15ml) 20 meq AD PRN PO POTASSIUM PROTOCOL 06/10/24 17:30 07/10/24 17:29 Potassium Chloride (KCl 10% Elixir 20meq/15ml) 20 meq AD PRN PO POTASSIUM PROTOCOL 06/10/24 18:00 07/10/24 17:59 UNV DIAGNOSTICS / RADIOLOGY: [ ] ASSESSMENT: [Acute Sepsis, POA Acute hypoxic respiratory failure, POA Left lung pneumonia and suspected early right lung pneumonia, POA aspiration pneumonia, POA POA Acute on chronic Asthma exacerbation, POA uncontrolled DM type 2 with hyperglycemia POA moderate malnutrition POA Hypokalemia, POA Hyponatremia, POA Hypochloremia, POA Hyperglycemia, POA hypomagnesemia 1.7 POA] Morbid obesity, POA PLAN: [Admit to PCCU Sputum culture pending 6 minute walk prior discharge pending 06/10 X-ray left lower lung pneumonia and early right pneumonia 06/12 chest x-ray bilateral pulmonary infiltrate suggestive of pulmonary vascular congestion with a possible superimposed pneumonitis CT chest showed bilateral reticular nodular pulmonary infiltrate and ground- glass infiltrates Decrease methylprednisolone to 40 mg b.i.d. Final urine culture negative Blood culture still pending Patient will be on heart healthy diet Patient will be on O2 supplementation to keep O2 sats greater than 92% We will start patient on nebulization treatment with ipratropium bromide q.6 hours scheduled Patient will be on methylprednisolone 40 mg b.i.d. We will request pulmonology consultation in the morning for evaluation and treatment of asthma Patient will be started with broad-spectrum IV antibiotics for pneumonia We will monitor electrolytes and replete as necessary We will start patient on GI prophylaxis and DVT prophylaxis We will request dietary consultation due to morbid obesity for lifestyle modification and diet modification We will repeat labs tomorrow home meds reconcilled by VIDEOGAME TESTER Nicotine patch daily case management for disposition PT evaluation Patient is a full code ATTESTATION BY PHYSICIAN I have seen and examined the patient. I reviewed the documentation, medical decision making, and treatment plan as noted by the mid-level provider above. I agree with the findings and plan of care. JOHNNA HURST MD, KATARZYNA B APRN Jun 13, 2024 11:44
--- NOTE | 2024-06-13 12:42 | PN ---
[facility] PROGRESS NOTE Date Patient Seen: Jun 13, 2024 Time of Visit: 12:42 Supervising Physician: Dr. Lyon Primary Care Physician: MAMTA SHELTON DO Outpatient Specialists: [ ] Inpatient Consults: Pulmonology PROBLEM LIST: Acute hypoxemic respiratory failure. POA. Bilateral community-acquired pneumoniae POA. Acute on chronic asthma exacerbation POA. Hypomagnesemia. Corrected Transaminitis without hyperbilirubinemia. Diabetes mellitus type 2 with hyperglycemia , hemoglobin A1c 6.2. Current smoker with a 8-pack year smoking history. Hypertension. Morbid obesity BMI 45.8 kg/m2. INTERVAL HISTORY: 06/12/2024: At the time of my evaluation, the patient was sitting up on her bed. She will remain on oxygen supplementation via nasal cannula, 2 liters/minute, she is stable on the monitor. Laboratory data today showed a slight increase of WBC to 13.5 probably reactive steroids. On chemistry, there was persisting transaminitis but improved compared to yesterday. On chest x- ray, there is persisting ground-glass opacities/infiltrates. No other complaint. 06/13/2024: At the time of my evaluation, the patient is lying in bed. She continues on oxygen supplementation via the nasal cannula at 2 liters/minute. Patient continues on steroid therapy and antibiotic coverage. WBC count today nannette to 13.0. No other complaint. REVIEW OF SYSTEMS: 12 point ROS reviewed with patient. Pertinent positives mentioned above. Otherwise negative. PHYSICAL EXAM: GENERAL: Alert, weak, awake oriented x 3 HEENT: EOMI, Sclera non icteric, moist mucosa NECK: Supple, no JVD, trachea midline LUNGS: Diminished breath sounds bilaterally. No wheezes HEART: Regular rate and rhythm. Normal S1 and S2, without murmurs ABD: Abdomen soft, nontender. Bowel sounds present EXT: No clubbing cyanosis or edema NEURO: Alert and oriented to person, follows commands Vital Signs (last 8hr) Date Time Temp Pulse Resp B/P (MAP) Pulse Ox O2 Delivery O2 Flow Rate FiO2 06/13/24 11:50 86 18 06/13/24 11:35 98.1 80 18 149/87 95 Nasal Cannula 2.0 06/13/24 09:00 95 Nasal Cannula* 2 28 06/13/24 08:19 80 20 N/Cannula Low lpm 2.0 28 06/13/24 08:17 80 18 3/24/25 08:06 97.9 77 18 136/91 97 Nasal Cannula 2.0 LABS: Hematology Labs: Test 06/13/24 03:49 Range/Units White Blood Count 13.0 H 4.8-10.8 K/uL Red Blood Count 3.82 L 4.00-5.50 MIL/uL Hemoglobin 11.5 L 12.0-16.0 g/dL Hematocrit 34.3 L 36-48 % Mean Corpuscular Volume 89.8 79-99 fL Mean Corpuscular Hemoglobin 30.1 27.0-33.0 pg Mean Corpuscular Hemoglobin Concent 33.5 32.0-36.0 g/dL Red Cell Distribution Width 13.3 11.0-15.5 % Platelet Count 344 130-400 K/uL Mean Platelet Volume 9.1 7.5-10.5 fL Immature Granulocyte % (Auto) 2.3 H 0-1 % Neutrophils (%) (Auto) 78.6 H 40.0-77.0 % Lymphocytes (%) (Auto) 15.0 L 21.0-51.0 % Monocytes (%) (Auto) 3.9 3.0-13.0 % Eosinophils (%) (Auto) 0.0 0.0-8.0 % Basophils (%) (Auto) 0.2 0.0-5.0 % Neutrophils # (Auto) 10.3 H 1.8-7.7 K/uL Lymphocytes # (Auto) 2.0 1.0-4.8 K/uL Monocytes # (Auto) 0.5 0.1-1.0 K/uL Eosinophils # (Auto) 0.00 0.00-0.70 K/uL Basophils # (Auto) 0.03 0.00-0.20 K/uL Absolute Immature Granulocyte (auto 0.30 0-1 K/uL Nucleated Red Blood Cells 0.0 0.0-0.19 % Chemistry Labs: Test 06/13/24 03:49 Range/Units Sodium Level 142 136-145 mmol/L Potassium Level 3.8 3.5-5.1 mmol/L Chloride Level 105 101-111 mmol/L Carbon Dioxide Level 28 21-32 mmol/L Blood Urea Nitrogen 13 7-18 mg/dL Creatinine 0.6 0.5-1.0 mg/dL Glomerular Filtration Rate Calc 113 >90 mL/min Random Glucose 174 H 70-105 mg/dL Total Calcium 8.1 L 8.5-10.1 mg/dL Magnesium Level 2.10 1.80-2.40 mg/dL Total Bilirubin 0.2 0.2-1.0 mg/dL Aspartate Amino Transf (AST/SGOT) 51 H 10-37 U/L Alanine Aminotransferase (ALT/SGPT) 88 H 12-78 U/L Alkaline Phosphatase 95 50-136 U/L Total Protein 7.0 6.0-8.3 g/dL Albumin 2.7 L 3.5-5.0 g/dL DIAGNOSTICS / RADIOLOGY RESULTS: [ ] PLAN Pulmonology consultation was requested due to the acute hypoxemic respiratory failure, the patient is currently stable on nasal cannula 2 L. Agree with continuing the Solu-Medrol at 80 mg q.8 hours. Also agree with the Rocephin Zithromax combination for antibiotic coverage. We will continue with Atrovent for bronchodilation, without albuterol due to the tachycardia. We will repeat a chest x-ray in the morning. We will monitor the patient's progress and response to management. We will continue to provide general supportive care, GI and DVT prophylaxis. Further orders per attending MD and hospital course. 06/12/2024: For now, we are going to continue current management for the patient. She will remain on oxygen supplementation via nasal cannula and we will wean off as appropriate. She will continue on antibiotic coverage with Zithromax and Rocephin as well as IV steroids. I am going to request a respiratory culture. We will replace his electrolyte deficits per the protocol. We will monitor the patient's progress and response to management. Further orders per attending MD and hospital course. 06/13/2024: At the time of my evaluation, the patient is lying in bed. She continues on oxygen supplementation via the nasal cannula at 2 liters/minute. Patient continues on steroid therapy and antibiotic coverage. WBC count today nannette to 13.0. No other complaint. NEURO: Minimize central acting medications as possible. Maintain fall precautions, adequate lighting during the day PULMONARY: Supplemental 02 as needed. Maintain aspiration precautions at all times CARDIOVASCULAR: Follow hemodynamics. Vital signs per facility protocol GI & NUTRITION: Continue with nutritional support. Continue stool softeners and laxatives as needed. KIDNEYS & ELECTROLYTES: Strict monitoring of intake, output and overall fluid balance. Avoid nephrotoxic medications to the extent possible. Medications to be dosed according to renal function. Monitor electrolytes and replace as needed ENDOCRINE: Maintain blood glucose between 100-180 at all times. Hypoglycemia protocol in place INFECTIOUS DISEASE: Trend temperature, WBC and procalcitonin level Follow cultures, deescalate antibiotics as soon as possible. Panculture if new onset fever ONCOLOGY/HEMATOLOGY/COAGULATION: Monitor for s/s of bleeding Monitor hemoglobin, coagulation studies as needed SKIN: Pressure ulcer prevention per facility protocol Specialty mattress ORTHO/REHAB: Continue PT/OT Prophylaxis: Continue GI and DVT prophylaxis Code Status: Full Resuscitation Disposition: TBD Other: HOLLIS QUIROGA NP Jun 13, 2024 12:42
[2024-06-14] VITALS (12 sets, daily range): BP systolic 110–151; BP diastolic 60–89; PULSE 62–90; RESP 16–20; TEMP 97.5–98.4; O2SAT 95–98
[2024-06-14 03:44] LABS: BASOPHILS # (AUTO) 0.05 K/uL (0.00-0.20); BASOPHILS % (AUTO) 0.5 % (0.0-5.0); HEMATOCRIT 34.6 % (36-48); IMMATURE GRANULOCYTE ABSOLUTE 0.47 K/uL (0-1); LYMPHOCYTES # (AUTO) 2.1 K/uL (1.0-4.8); LYMPHOCYTES % (AUTO) 19.8 % (21.0-51.0); MEAN CORPUSCULAR HEMOGLOBIN 29.9 pg (27.0-33.0); MEAN CORPUSCULAR HGB CONC 32.9 g/dL (32.0-36.0); MEAN CORPUSCULAR VOLUME 90.8 fL (79-99); MONOCYTES # (AUTO) 0.5 K/uL (0.1-1.0); MONOCYTES % (AUTO) 4.4 % (3.0-13.0); NEUTROPHILS # (AUTO) 7.6 K/uL (1.8-7.7); NEUTROPHILS % (AUTO) 70.9 % (40.0-77.0); PLATELET COUNT (AUTO) 351 K/uL (130-400); RED BLOOD CELL COUNT(AUTO) 3.81 MIL/uL (4.00-5.50); RED CELL DISTRIBUTION WIDTH 13.2 % (11.0-15.5); WHITE BLOOD COUNT (AUTO) 10.7 K/uL (4.8-10.8)
[2024-06-14 04:04] LABS: CREATININE 0.7 mg/dL (0.5-1.0); POTASSIUM 3.9 mmol/L (3.5-5.1)
--- NOTE | 2024-06-14 12:30 | PN ---
[facility] PROGRESS NOTE Date of Service: Jun 14, 2024 Time of Service: 12:24 SUBJECTIVE: [06/10/24 43-year-old female with past medical history of asthma to the emergency department with complaints of shortness of breaths. Patient is accompanied by her daughter who is also helping with this question and answer. Patient apparently has been having issues of shortness of breaths since Thursday06/06/2024. Patient has been using her albuterol nebulizer treatment but has not improved her condition hence she decided to come to the emergency department. Associated symptoms also include fever which is on and off, weakness and lethargy. In the emergency department, her initial vitals showed fever of 101.1 F, HR between [id number], RR 22, BP 146/75, O2 saturation 90% on2 L via nasal cannula. Patient was evaluated in ED room seven, she is short of breath, noted labored breathing and accessory muscle use. Unable to speak, daughter is speaking for her at this time. She is unable to lay flat and sitting on the gurney. Labs will be, hematology is unremarkable, chemistry showed Na 130, K3.3, Cl 93, random glucose 115. Patient was negative for COVID, influenza a/B and strep. Patient was referred to the hospitalist for further evaluation and management. 06/11/24 patient was seen by nurse practitioner and physician during rounding in room ED 12 lying in bed. Patient's magnesium today is 1.7 patient receive 2 g of magnesium. Also patient received 40 mEq of potassium for potassium of 3.5. Chest x-ray showed left lower pneumonia of the early right pneumonia. CT chest showed bilateral reticular nodular pulmonary infiltrates with ground-glass infiltrate. Patient was evaluated by machine cementer at this moment we are waiting further recommendations. Patient continues to be on methylprednisolone 80 mg q.8 hours. Patient is on Azithromycin, Rocephin at this moment. Sodium has imporved from 120 to 135. We will continue to monitor patient in the meantime. A.m. labs 06/12 patient was seen by nurse practitioner physician during rounding in room 202. Patient continues to be on azithromycin and ceftriaxone. Patient is on room air at this moment we will lower steroids methylprednisolone to 40 b.i.d.. Patient will also receive nicotine patch since she has a current smoker of half pack a day. Chest x-ray showed bilateral infiltrate vascular congestion pneumonitis. Dietary was consulted. Pulmonology on case. Blood and sputum culture pending. We will continue to monitor patient in the meantime. A.m. lab 06/13 patient was seen by INSULATION WORKER APPRENTICE and physician during rounding. Patient's WBC today is at 13 which could be due to steroids on board methylprednisolone 40 mg b.i.d. . Patient continues to be on azithromycin and Rocephin. Patient is also a half pack smoker nicotine patch was added to patient's daily regimen. Final urine cultures negative blood culture 48 hours negative sputum culture pending. prior discharge we will request the patient undergo 6 minute walk with PT. We will continue to monitor patient in the meantime. A.m. labs.] 06/14/2024. Patient remains on oxygen supplemental patient appears to be very dyspneic on minimal exertion patient did not pass 6 minute walk we will need home oxygen case management was made aware. REVIEW OF SYSTEMS CONSTITUTIONAL: Denies fevers, chills, or night sweats. No unintentional weight loss reported. NEUROLOGICAL: Denies headache, amaurosis fugax, motor weakness, sensory deficit, vertigo/spinning sensation, gait abnormalities, or tremors. ENT: No hearing loss, otalgia, otorrhea, rhinitis, rhinorrhea, hoarseness, or sore throat. CARDIOVASCULAR: Denies any exertional angina, dyspnea on exertion, orthopnea, paroxysmal nocturnal dyspnea, palpitations, life-threatening arrhythmias, claudication. PULMONARY: Denies any shortness of breath, cough, phlegm/sputum, hemoptysis, pleuritic chest pain. SLEEP: Denies morning headaches, daytime somnolence or napping. Denies difficulty falling asleep, staying asleep, waking from sleep. Denies knowledge of snoring. GASTROINTESTINAL: Denies any type of dysphagia to either liquids or solids. Denies nausea, vomiting, pyrosis, early satiety, abdominal pain, diarrhea, constipation, or changes in stool consistency or caliber. Denies coffee-ground emesis, hematemesis, hematochezia, or melanotic stools. GENITOURINARY: Denies frequency, urgency, nocturia, hematuria or incontinence (Storage/Irritative symptoms.) Low urinary stream, straining to void, urinary intermittency or hesitancy, splitting of the voiding stream, terminal dribbling. ENDOCRINOLOGIC: Denies polyuria, polydipsia, polyphagia or heat/cold intolerances. HEMATOLOGIC: Denies thrombophilia/previous clots, or coagulopathy/bleeding disorders. ONCOLOGIC: Denies personal history of malignancy. DERMATOLOGIC: Denies rashes or pruritus. PSYCHIATRIC: Denies any suicidal or homicidal ideation. Denies hallucinations. PHYSICAL EXAM: GENERAL: Alert, weak, awake oriented x 3 HEENT: EOMI, Sclera non icteric, moist mucosa NECK: Supple, no JVD, trachea midline LUNGS: Diminished breath sounds bilaterally. No wheezes HEART: Regular rate and rhythm. Normal S1 and S2, without murmurs ABD: Abdomen soft, nontender. Bowel sounds present EXT: No clubbing cyanosis or edema NEURO: Alert and oriented to person, follows commands Vital Signs (last 8hr) Date Time Temp Pulse Resp B/P (MAP) Pulse Ox O2 Delivery O2 Flow Rate FiO2 06/14/24 12:00 97.5 71 16 131/82 95 Nasal Cannula 2.0 06/14/24 11:37 75 20 06/14/24 08:00 97.5 78 16 148/89 97 Nasal Cannula 2.0 06/14/24 06:36 72 20 N/Cannula Low lpm 2.0 06/14/24 06:35 72 20 06/14/24 04:33 98.1 62 18 151/81 96 Room Air LABS: Laboratory: Test 06/14/24 03:31 06/13/24 03:49 Range/Units White Blood Count 10.7 4.8-10.8 K/uL Red Blood Count 3.81 L 4.00-5.50 MIL/uL Hemoglobin 11.4 L 12.0-16.0 g/dL Hematocrit 34.6 L 36-48 % Mean Corpuscular Volume 90.8 79-99 fL Mean Corpuscular Hemoglobin 29.9 27.0-33.0 pg Mean Corpuscular Hemoglobin Concent 32.9 32.0-36.0 g/dL Red Cell Distribution Width 13.2 11.0-15.5 % Platelet Count 351 130-400 K/uL Mean Platelet Volume 9.1 7.5-10.5 fL Immature Granulocyte % (Auto) 4.4 H 0-1 % Neutrophils (%) (Auto) 70.9 40.0-77.0 % Lymphocytes (%) (Auto) 19.8 L 21.0-51.0 % Monocytes (%) (Auto) 4.4 3.0-13.0 % Eosinophils (%) (Auto) 0.0 0.0-8.0 % Basophils (%) (Auto) 0.5 0.0-5.0 % Neutrophils # (Auto) 7.6 1.8-7.7 K/uL Lymphocytes # (Auto) 2.1 1.0-4.8 K/uL Monocytes # (Auto) 0.5 0.1-1.0 K/uL Eosinophils # (Auto) 0.00 0.00-0.70 K/uL Basophils # (Auto) 0.05 0.00-0.20 K/uL Absolute Immature Granulocyte (auto 0.47 0-1 K/uL Nucleated Red Blood Cells 0.0 0.0-0.19 % Sodium Level 137 136-145 mmol/L Potassium Level 3.9 3.5-5.1 mmol/L Chloride Level 101 101-111 mmol/L Carbon Dioxide Level 33 H 21-32 mmol/L Blood Urea Nitrogen 16 7-18 mg/dL Creatinine 0.7 0.5-1.0 mg/dL Glomerular Filtration Rate Calc 109 >90 mL/min Random Glucose 185 H 70-105 mg/dL Total Calcium 8.1 L 8.5-10.1 mg/dL Magnesium Level 2.10 1.80-2.40 mg/dL Total Bilirubin 0.2 0.2-1.0 mg/dL Aspartate Amino Transf (AST/SGOT) 51 H 10-37 U/L Alanine Aminotransferase (ALT/SGPT) 88 H 12-78 U/L Alkaline Phosphatase 95 50-136 U/L Total Protein 7.0 6.0-8.3 g/dL Albumin 2.7 L 3.5-5.0 g/dL Current Medications Medications (Trade) Dose Ordered Sig/Juani Route PRN Reason Start Time Stop Time Status Last Admin Dose Admin Acetaminophen (TYLenol 325MG TAB) 650 mg Q4H PRN PO TEMPERATURE GREATER THAN 101.5 06/10/24 18:00 07/10/24 17:59 Acetaminophen (TYLenol 325MG TAB) 650 mg Q6H PRN PO MILD PAIN (1-3) 06/10/24 18:00 07/10/24 17:59 Azithromycin 250 ml @ 250 mls/hr Q24H IVPB 06/11/24 17:30 06/21/24 17:29 06/13/24 16:58 250 MLS/HR Ceftriaxone Sodium (Rocephin 2gm Inj) 2 gm Q24H IVPB 06/10/24 18:00 06/20/24 17:59 06/13/24 16:58 2 GM Enoxaparin Sodium (Lovenox) 40 mg DAILY SQ 06/11/24 09:00 07/11/24 08:59 06/14/24 11:19 40 MG Famotidine (Pepcid 20mg Tab) 20 mg BID PO 06/10/24 21:00 07/10/24 20:59 06/14/24 11:17 20 MG Fluticasone Propionate (FLOnase 50 mcg/ spray 16g bottle) 1 SPRAY DAILY NS 06/11/24 09:00 07/11/24 08:59 06/14/24 11:16 1 SPRAYS Guaifenesin/ Codeine Phosphate (RobiTUSSin AC 5 ML SYRUP) 5 ml Q6H PRN PO COUGH 06/11/24 01:00 07/11/24 00:59 06/14/24 11:17 5 ML Ipratropium [place] (AtrovENT UD) 0.5 MG [id number] IH 06/10/24 18:00 07/10/24 17:59 06/14/24 11:36 0.5 MG Loratadine (LORATAdine 10 mg) 10 mg DAILY PO 06/11/24 09:00 07/11/24 08:59 06/14/24 11:17 10 MG Magnesium Sulfate 50 ml @ 0 mls/hr PROTOCOL IV 06/11/24 08:30 06/11/24 08:36 DC Magnesium Sulfate 50 ml @ 0 mls/hr PROTOCOL PRN IV MAGNESIUM PROTOCOL 06/10/24 18:00 07/10/24 17:59 06/10/24 19:15 25 MLS/HR Methylprednisolone Sodium Succinate (Solu-medROL 40MG) 40 mg BID IVP 06/12/24 21:00 07/10/24 17:59 06/14/24 11:19 40 MG Methylprednisolone Sodium Succinate (Solu-medROL 40MG) 80 mg Q8H IVP 06/11/24 10:00 06/12/24 17:18 DC 06/12/24 08:25 80 MG Methylprednisolone Sodium Succinate (Solu-medROL 125MG) 80 mg Q8H IVP 06/10/24 18:00 06/11/24 08:35 DC 06/11/24 02:34 80 MG Metoprolol Tartrate (loprESSOR) 5 mg Q8H PRN IV INCREASED HEART RATE 06/10/24 18:00 07/10/24 17:59 Montelukast Sodium (SinguLAIR) 10 mg HS PO 06/10/24 21:00 07/10/24 20:59 06/13/24 20:28 10 MG Nicotine (Nicoderm) 14 mg DAILY TD 06/12/24 21:00 07/12/24 20:59 06/14/24 11:18 14 MG Ondansetron HCl (zoFRAN 4MG INJ) 4 mg Q6H PRN IVP NAUSEA/VOMITING 06/10/24 18:00 07/10/24 17:59 Ondansetron HCl (zoFRAN 4MG ODT) 4 mg TIDP PRN PO NAUSEA 06/11/24 09:00 06/11/24 08:36 DC Potassium Chloride 100 ml @ 100 mls/hr AD PRN IV POTASSIUM PROTOCOL 06/10/24 17:30 07/10/24 17:29 Potassium Chloride 100 ml @ 100 mls/hr AD PRN IV POTASSIUM PROTOCOL 06/10/24 18:00 07/10/24 17:59 UNV Potassium Chloride (K-Dur/Klor-Con 20meq) 20 meq AD PRN PO POTASSIUM PROTOCOL 06/10/24 17:30 07/10/24 17:29 06/10/24 19:14 20 MEQ Potassium Chloride (K-Dur/Klor-Con 20meq) 20 meq AD PRN PO POTASSIUM PROTOCOL 06/10/24 18:00 07/10/24 17:59 UNV Potassium Chloride (KCl 10% Elixir 20meq/15ml) 20 meq AD PRN PO POTASSIUM PROTOCOL 06/10/24 17:30 07/10/24 17:29 Potassium Chloride (KCl 10% Elixir 20meq/15ml) 20 meq AD PRN PO POTASSIUM PROTOCOL 06/10/24 18:00 07/10/24 17:59 UNV DIAGNOSTICS / RADIOLOGY: [ ] ASSESSMENT: [Acute Sepsis, POA Acute hypoxic respiratory failure, POA Left lung pneumonia and suspected early right lung pneumonia, POA aspiration pneumonia, POA POA Acute on chronic Asthma exacerbation, POA uncontrolled DM type 2 with hyperglycemia POA moderate malnutrition POA Hypokalemia, POA Hyponatremia, POA Hypochloremia, POA Hyperglycemia, POA hypomagnesemia 1.7 POA] Morbid obesity, POA PLAN: [Admit to [facility] Sputum culture pending 6 minute walk we will need home oxygen case management was made aware. Test 2D echo venous Dopplers. Continues methylprednisolone to 40 mg b.i.d. and bronchodilators O2 supplementation to keep O2 sats greater than 92% Encourage IS while awake Antibiotics: Continue Rocephin2 g every 24 hours. Consulted critical team Blood culture so far negative Replace electrolytes as needed basis GI prophylaxis and DVT prophylaxis Smoking cessation nicotine patch PT services to evaluate and treat out of bed to chair ambulation as tolerated All questions addressed Further orders as per response to treatment Case discussed with the attending Dr. Hurst. ATTESTATION BY PHYSICIAN I have seen and examined the patient. I reviewed the documentation, medical decision making, and treatment plan as noted by the mid-level provider above. I agree with the findings and plan of care. JOHNNA HURST MD, ELIZABETH NP Jun 14, 2024 12:30
--- NOTE | 2024-06-14 15:07 | PN ---
[facility] PROGRESS NOTE Date Patient Seen: Jun 14, 2024 Time of Visit: 1311 Supervising Physician: Dr. Lyon Primary Care Physician: MAMTA SHELTON DO Outpatient Specialists: [ ] Inpatient Consults: Pulmonology PROBLEM LIST: Acute hypoxemic respiratory failure. POA. Bilateral community-acquired pneumoniae POA. Acute on chronic asthma exacerbation POA. Hypomagnesemia. Corrected Transaminitis without hyperbilirubinemia. Diabetes mellitus type 2 with hyperglycemia , hemoglobin A1c 6.2. Current smoker with a 8-pack year smoking history. Hypertension. Morbid obesity BMI 45.8 kg/m2. INTERVAL HISTORY: 06/12/2024: At the time of my evaluation, the patient was sitting up on her bed. She will remain on oxygen supplementation via nasal cannula, 2 liters/minute, she is stable on the monitor. Laboratory data today showed a slight increase of WBC to 13.5 probably reactive steroids. On chemistry, there was persisting transaminitis but improved compared to yesterday. On chest x- ray, there is persisting ground-glass opacities/infiltrates. No other complaint. 06/13/2024: At the time of my evaluation, the patient is lying in bed. She continues on oxygen supplementation via the nasal cannula at 2 liters/minute. Patient continues on steroid therapy and antibiotic coverage. WBC count today nannette to 13.0. No other complaint. 06/14 patient was seen and examined by bedside with family present. Patient currently on2 L nasal cannula appears to be tolerating well. Patient does not use home oxygen. Patient did fail 6 minute walk case management to work on home oxygen arrangements prior to discharge. Patient currently pending echocardiogram and venous Dopplers to lower extremity we will follow up results. At this time we will discontinue patient's Solu-Medrol and transition patient to prednisone 40 mg daily x5 days. At time of visit patient denies any chest pain report shortness of breadth upon minimal exertion. Has remained hemodynamically stable REVIEW OF SYSTEMS: 12 point ROS reviewed with patient. Pertinent positives mentioned above. Otherwise negative. PHYSICAL EXAM: GENERAL: Alert, weak, awake oriented x 3 HEENT: EOMI, Sclera non icteric, moist mucosa NECK: Supple, no JVD, trachea midline LUNGS: Diminished breath sounds bilaterally. No wheezes HEART: Regular rate and rhythm. Normal S1 and S2, without murmurs ABD: Abdomen soft, nontender. Bowel sounds present EXT: No clubbing cyanosis or edema NEURO: Alert and oriented to person, follows commands Vital Signs (last 8hr) Date Time Temp Pulse Resp B/P (MAP) Pulse Ox O2 Delivery O2 Flow Rate FiO2 06/14/24 12:00 97.5 71 16 131/82 95 Nasal Cannula 2.0 06/14/24 11:37 75 20 06/14/24 08:00 95 Nasal Cannula* 2 28 06/14/24 08:00 97.5 78 16 148/89 97 Nasal Cannula 2.0 LABS: Hematology Labs: Test 06/14/24 03:31 Range/Units White Blood Count 10.7 4.8-10.8 K/uL Red Blood Count 3.81 L 4.00-5.50 MIL/uL Hemoglobin 11.4 L 12.0-16.0 g/dL Hematocrit 34.6 L 36-48 % Mean Corpuscular Volume 90.8 79-99 fL Mean Corpuscular Hemoglobin 29.9 27.0-33.0 pg Mean Corpuscular Hemoglobin Concent 32.9 32.0-36.0 g/dL Red Cell Distribution Width 13.2 11.0-15.5 % Platelet Count 351 130-400 K/uL Mean Platelet Volume 9.1 7.5-10.5 fL Immature Granulocyte % (Auto) 4.4 H 0-1 % Neutrophils (%) (Auto) 70.9 40.0-77.0 % Lymphocytes (%) (Auto) 19.8 L 21.0-51.0 % Monocytes (%) (Auto) 4.4 3.0-13.0 % Eosinophils (%) (Auto) 0.0 0.0-8.0 % Basophils (%) (Auto) 0.5 0.0-5.0 % Neutrophils # (Auto) 7.6 1.8-7.7 K/uL Lymphocytes # (Auto) 2.1 1.0-4.8 K/uL Monocytes # (Auto) 0.5 0.1-1.0 K/uL Eosinophils # (Auto) 0.00 0.00-0.70 K/uL Basophils # (Auto) 0.05 0.00-0.20 K/uL Absolute Immature Granulocyte (auto 0.47 0-1 K/uL Nucleated Red Blood Cells 0.0 0.0-0.19 % Chemistry Labs: Test 06/14/24 03:31 06/13/24 03:49 Range/Units Sodium Level 137 136-145 mmol/L Potassium Level 3.9 3.5-5.1 mmol/L Chloride Level 101 101-111 mmol/L Carbon Dioxide Level 33 H 21-32 mmol/L Blood Urea Nitrogen 16 7-18 mg/dL Creatinine 0.7 0.5-1.0 mg/dL Glomerular Filtration Rate Calc 109 >90 mL/min Random Glucose 185 H 70-105 mg/dL Total Calcium 8.1 L 8.5-10.1 mg/dL Magnesium Level 2.10 1.80-2.40 mg/dL Total Bilirubin 0.2 0.2-1.0 mg/dL Aspartate Amino Transf (AST/SGOT) 51 H 10-37 U/L Alanine Aminotransferase (ALT/SGPT) 88 H 12-78 U/L Alkaline Phosphatase 95 50-136 U/L Total Protein 7.0 6.0-8.3 g/dL Albumin 2.7 L 3.5-5.0 g/dL DIAGNOSTICS / RADIOLOGY RESULTS: na PLAN Discontinue patient's Solu-Medrol Transition to prednisone 40 mg daily x5 days Continue with current IV antibiotics Case management to arrange for home oxygen prior to discharge Continue to actively titrate FiO2 as tolerated Continue to monitor respiratory status Maintain adequate perfusion Keep O2 sats greater or equal to 90% NEURO: Minimize central acting medications as possible. Maintain fall precautions, adequate lighting during the day PULMONARY: Supplemental 02 as needed. Maintain aspiration precautions at all times CARDIOVASCULAR: Follow hemodynamics. Vital signs per facility protocol GI & NUTRITION: Continue with nutritional support. Continue stool softeners and laxatives as needed. KIDNEYS & ELECTROLYTES: Strict monitoring of intake, output and overall fluid balance. Avoid nephrotoxic medications to the extent possible. Medications to be dosed according to renal function. Monitor electrolytes and replace as needed ENDOCRINE: Maintain blood glucose between 100-180 at all times. Hypoglycemia protocol in place INFECTIOUS DISEASE: Trend temperature, WBC and procalcitonin level Follow cultures, deescalate antibiotics as soon as possible. Panculture if new onset fever ONCOLOGY/HEMATOLOGY/COAGULATION: Monitor for s/s of bleeding Monitor hemoglobin, coagulation studies as needed SKIN: Pressure ulcer prevention per facility protocol Specialty mattress ORTHO/REHAB: Continue PT/OT Prophylaxis: Continue GI and DVT prophylaxis Code Status: Full Resuscitation Disposition: Per primary team Case discussed with supervising physician plan of care agreed upon Other: NESTOR ALBERT Jun 14, 2024 15:07
--- NOTE | 2024-06-14 16:02 | HMCIMG ---
US VENOUS DOPPLER BILATERAL HISTORY: DVT COMPARISON: None TECHNIQUE: Bilateral lower extremity venous Doppler ultrasound study was performed. FINDINGS: The common femoral, femoral, popliteal, and posterior tibial veins are visualized. Normal flow with augmentation and compressibilities are demonstrated. The greater saphenous veins are also seen and grossly patent. IMPRESSION: 1. No evidence of deep venous thrombosis is seen.
--- NOTE | 2024-06-14 16:32 | NUR ---
Discharge Update: Pt. failed 6 minute walk and requires 02 for home. As per Sydney Thomas/TRUCK ASSEMBLER, hold off on 02 for now d/t pt. with worsening SOB. Will need repeat 6-minute walk when ready.
--- NOTE | 2024-06-14 17:01 | HMCSR ---
APPROVED REPORT EXAM: Two-dimensional and M-mode echocardiogram with Doppler and color Doppler. INDICATION ICD: Assess LV Function 2D Dimensions RVDd3.2 cmLVEF(%)61.0 (>50%)LVED Vol(simp.)77.9 mL IVSd0.8 (0.7-1.1cm)FS(%)33 %LVES Vol(simp.)34.2 mL LVDd4.7 (3.8-5.6cm)LA (2D)3.9 (1.6-4.0cm)LVEF(%, simp.)56 % PWd1.1 (0.7-1.1cm)Ao Root(2D)2.7 (2.0-3.7cm) LVDs3.2 (2.5-4.0cm)LVOT diam2.0 (1.8-2.4cm) IVC diam2.3 cm Deformation Strain Apical 4-16.0 % Apical 2-15.0 % Apical 3-13.0 % Global Strain-15.0 % M-Mode Dimensions EPSS0.9 cm LA (MM)3.7 (1.6-4.0cm) Ao Root(MM)3.1 (2.0-3.7cm) Aortic Valve AoV Vmax1.3 m/Ankita Peak GR6.3 mmHgLVOT Vmax1.0 m/s AoV VTI0.3 mAo Mean GR3.2 mmHgLVOT VTI0.24 m YAMILET (VMAX)2.7 cm2AVA (VTI) 2.7 cm2 Mitral Valve MV E Vmax94.9 cm/sDECEL Tsee939 ms MV A Dcny086.5 cm/sP 1/2 T49 ms E/A ratio0.9MVA (PHT)4.5 cm2 TDI E/E' Hjvskw53.5 Medial E' Peak V9.00 cm/s Tricuspid Valve TR Vmax2.4 m/sRAP (EST) 15 oyEbENKO53.2 mmHg TR Peak GR22.2 mmHg Left Ventricle The left ventricle is normal size. GS -15%. No regional wall motion abnormalities noted. There is nor mal left ventricular wall thickness. LVEF is 55-60%. The left ventricular diastolic function is roderick l. Right Ventricle The right ventricle is normal size. The right ventricular systolic function is normal. Atria The left atrium size is normal. The right atrium size is normal. Aortic Valve The aortic valve is normal in structure. No aortic regurgitation is present. There is no aortic valvu lar stenosis. Mitral Valve The mitral valve is normal in structure. There is no evidence of significant mitral regurgitation. Th ere is no mitral valve stenosis. Tricuspid Valve The tricuspid valve is normal in structure. There is trace tricuspid valve regurgitation noted. Pulmonic Valve The pulmonary valve is normal in structure. There is no pulmonic valvular regurgitation. Great Vessels The aortic root is normal in size. IVC is dilated and collapses <50% with inspiration. Pericardium There is no pericardial effusion. Other Information Quality : Adequate Conclusion LVEF is 55-60%. LVEF is 55-60%. The right ventricular systolic function is normal. GS -15%. No regional wall motion abnormalities noted. There is no evidence of significant mitral regurgitation. There is trace tricuspid valve regurgitation noted. There is no pericardial effusion.
[2024-06-14 23:09] LABS: MYCOPLASMA AB IGM <770 U/mL (0-769)
[2024-06-15] VITALS (14 sets, daily range): BP systolic 132–139; BP diastolic 76–93; PULSE 72–87; RESP 16–19; TEMP 97.7–99.4; O2SAT 95–97
[2024-06-15 03:48] LABS: BASOPHILS # (AUTO) 0.07 K/uL (0.00-0.20); BASOPHILS % (AUTO) 0.7 % (0.0-5.0); EOSINOPHILS # (AUTO) 0.01 K/uL (0.00-0.70); EOSINOPHILS % (AUTO) 0.1 % (0.0-8.0); HEMATOCRIT 36.1 % (36-48); IMMATURE GRANULOCYTE ABSOLUTE 0.64 K/uL (0-1); LYMPHOCYTES # (AUTO) 3.5 K/uL (1.0-4.8); LYMPHOCYTES % (AUTO) 32.9 % (21.0-51.0); MEAN CORPUSCULAR HEMOGLOBIN 29.7 pg (27.0-33.0); MONOCYTES # (AUTO) 0.8 K/uL (0.1-1.0); MONOCYTES % (AUTO) 7.4 % (3.0-13.0); NEUTROPHILS # (AUTO) 5.7 K/uL (1.8-7.7); NEUTROPHILS % (AUTO) 52.9 % (40.0-77.0); NUCLEATED RED BLOOD CELLS 0.2 % (0.0-0.19); PLATELET COUNT (AUTO) 370 K/uL (130-400); RED BLOOD CELL COUNT(AUTO) 4.01 MIL/uL (4.00-5.50); RED CELL DISTRIBUTION WIDTH 12.7 % (11.0-15.5); WHITE BLOOD COUNT (AUTO) 10.7 K/uL (4.8-10.8)
[2024-06-15 03:57] LABS: CREATININE 0.5 mg/dL (0.5-1.0); POTASSIUM 3.4 mmol/L (3.5-5.1)
[2024-06-15 04:08] LABS: BAND NEUTROPHILS % (MANUAL) 2 % (0-2); LYMPHOCYTES % (MANUAL) 44 % (22-44); MONOCYTES % (MANUAL) 3 % (2-9); SEGMENTED NEUTROPHILS % 51 % (40-70); TOTAL CELLS COUNTED 100
[2024-06-15 04:09] LABS: MAN.DIFF COMMENT-IMPRESSION MANUAL DIFFERENTIAL
[2024-06-15] MEDS: predniSONE 20 MG TABLET PO SCH (09:52)
--- NOTE | 2024-06-15 11:13 | PN ---
[facility] PROGRESS NOTE Date of Service: Jun 15, 2024 Time of Service: 11:10 SUBJECTIVE: [06/10/24 43-year-old female with past medical history of asthma to the emergency department with complaints of shortness of breaths. Patient is accompanied by her daughter who is also helping with this question and answer. Patient apparently has been having issues of shortness of breaths since Thursday06/06/2024. Patient has been using her albuterol nebulizer treatment but has not improved her condition hence she decided to come to the emergency department. Associated symptoms also include fever which is on and off, weakness and lethargy. In the emergency department, her initial vitals showed fever of 101.1 F, HR between [id number], RR 22, BP 146/75, O2 saturation 90% on2 L via nasal cannula. Patient was evaluated in ED room seven, she is short of breath, noted labored breathing and accessory muscle use. Unable to speak, daughter is speaking for her at this time. She is unable to lay flat and sitting on the gurney. Labs will be, hematology is unremarkable, chemistry showed Na 130, K3.3, Cl 93, random glucose 115. Patient was negative for COVID, influenza a/B and strep. Patient was referred to the hospitalist for further evaluation and management. 06/11/24 patient was seen by nurse practitioner and physician during rounding in room ED 12 lying in bed. Patient's magnesium today is 1.7 patient receive 2 g of magnesium. Also patient received 40 mEq of potassium for potassium of 3.5. Chest x-ray showed left lower pneumonia of the early right pneumonia. CT chest showed bilateral reticular nodular pulmonary infiltrates with ground-glass infiltrate. Patient was evaluated by consulting networking engineer at this moment we are waiting further recommendations. Patient continues to be on methylprednisolone 80 mg q.8 hours. Patient is on Azithromycin, Rocephin at this moment. Sodium has imporved from 120 to 135. We will continue to monitor patient in the meantime. A.m. labs 06/12 patient was seen by nurse practitioner physician during rounding in room 202. Patient continues to be on azithromycin and ceftriaxone. Patient is on room air at this moment we will lower steroids methylprednisolone to 40 b.i.d.. Patient will also receive nicotine patch since she has a current smoker of half pack a day. Chest x-ray showed bilateral infiltrate vascular congestion pneumonitis. Dietary was consulted. Pulmonology on case. Blood and sputum culture pending. We will continue to monitor patient in the meantime. A.m. lab 06/13 patient was seen by STADIUM ATTENDANT and physician during rounding. Patient's WBC today is at 13 which could be due to steroids on board methylprednisolone 40 mg b.i.d. . Patient continues to be on azithromycin and Rocephin. Patient is also a half pack smoker nicotine patch was added to patient's daily regimen. Final urine cultures negative blood culture 48 hours negative sputum culture pending. prior discharge we will request the patient undergo 6 minute walk with PT. We will continue to monitor patient in the meantime. A.m. labs.] 06/14/2024. Patient remains on oxygen supplemental patient appears to be very dyspneic on minimal exertion patient did not pass 6 minute walk we will need home oxygen case management was made aware. 06/15/24 patient is seen earlier patient continues on oxygen supplemental. Breath sounds crackles to lower. Being followed by consulting networking engineer's. We will continue to monitors most likely repeat 6 minute walk close to discharge. REVIEW OF SYSTEMS CONSTITUTIONAL: Denies fevers, chills, or night sweats. No unintentional weight loss reported. NEUROLOGICAL: Denies headache, amaurosis fugax, motor weakness, sensory deficit, vertigo/spinning sensation, gait abnormalities, or tremors. ENT: No hearing loss, otalgia, otorrhea, rhinitis, rhinorrhea, hoarseness, or sore throat. CARDIOVASCULAR: Denies any exertional angina, dyspnea on exertion, orthopnea, paroxysmal nocturnal dyspnea, palpitations, life-threatening arrhythmias, claudication. PULMONARY: Denies any shortness of breath, cough, phlegm/sputum, hemoptysis, pleuritic chest pain. SLEEP: Denies morning headaches, daytime somnolence or napping. Denies di fficulty falling asleep, staying asleep, waking from sleep. Denies knowledge of snoring. GASTROINTESTINAL: Denies any type of dysphagia to either liquids or solids. Denies nausea, vomiting, pyrosis, early satiety, abdominal pain, diarrhea, constipation, or changes in stool consistency or caliber. Denies coffee-ground emesis, hematemesis, hematochezia, or melanotic stools. GENITOURINARY: Denies frequency, urgency, nocturia, hematuria or incontinence (Storage/Irritative symptoms.) Low urinary stream, straining to void, urinary intermittency or hesitancy, splitting of the voiding stream, terminal dribbling. ENDOCRINOLOGIC: Denies polyuria, polydipsia, polyphagia or heat/cold intolerances. HEMATOLOGIC: Denies thrombophilia/previous clots, or coagulopathy/bleeding disorders. ONCOLOGIC: Denies personal history of malignancy. DERMATOLOGIC: Denies rashes or pruritus. PSYCHIATRIC: Denies any suicidal or homicidal ideation. Denies hallucinations. PHYSICAL EXAM: GENERAL: Alert, weak, awake oriented x 3 HEENT: EOMI, Sclera non icteric, moist mucosa NECK: Supple, no JVD, trachea midline LUNGS: Diminished breath sounds bilaterally. No wheezes HEART: Regular rate and rhythm. Normal S1 and S2, without murmurs ABD: Abdomen soft, nontender. Bowel sounds present EXT: No clubbing cyanosis or edema NEURO: Alert and oriented to person, follows commands Vital Signs (last 8hr) Date Time Temp Pulse Resp B/P (MAP) Pulse Ox O2 Delivery O2 Flow Rate FiO2 06/15/24 08:00 96 Nasal Cannula* 2 28 06/15/24 07:56 97.7 76 18 136/87 100 Nasal Cannula 2.0 06/15/24 07:03 76 18 06/15/24 07:02 76 18 N/Cannula Low lpm 2.0 28 06/15/24 03:24 98.1 72 17 134/81 94 Nasal Cannula 2.0 LABS: Laboratory: Test 06/15/24 03:20 Range/Units White Blood Count 10.7 4.8-10.8 K/uL Red Blood Count 4.01 4.00-5.50 MIL/uL Hemoglobin 11.9 L 12.0-16.0 g/dL Hematocrit 36.1 36-48 % Mean Corpuscular Volume 90.0 79-99 fL Mean Corpuscular Hemoglobin 29.7 27.0-33.0 pg Mean Corpuscular Hemoglobin Concent 33.0 32.0-36.0 g/dL Red Cell Distribution Width 12.7 11.0-15.5 % Platelet Count 370 130-400 K/uL Mean Platelet Volume 8.9 7.5-10.5 fL Immature Granulocyte % (Auto) 6.0 H 0-1 % Neutrophils (%) (Auto) 52.9 40.0-77.0 % Lymphocytes (%) (Auto) 32.9 21.0-51.0 % Monocytes (%) (Auto) 7.4 3.0-13.0 % Eosinophils (%) (Auto) 0.1 0.0-8.0 % Basophils (%) (Auto) 0.7 0.0-5.0 % Neutrophils # (Auto) 5.7 1.8-7.7 K/uL Lymphocytes # (Auto) 3.5 1.0-4.8 K/uL Monocytes # (Auto) 0.8 0.1-1.0 K/uL Eosinophils # (Auto) 0.01 0.00-0.70 K/uL Basophils # (Auto) 0.07 0.00-0.20 K/uL Absolute Immature Granulocyte (auto 0.64 0-1 K/uL Segmented Neutrophils % 51 40-70 % Band Neutrophils % 2 0-2 % Lymphocytes % (Manual) 44 22-44 % Monocytes % (Manual) 3 2-9 % Nucleated Red Blood Cells 0.2 H 0.0-0.19 % Differential Comment MANUAL DIFFERENTIAL White Cell Morphology Comment Platelet Morphology Comment See comments Red Blood Cell Morphology ANISO 1+ Sodium Level 136 136-145 mmol/L Potassium Level 3.4 L 3.5-5.1 mmol/L Chloride Level 101 101-111 mmol/L Carbon Dioxide Level 30 21-32 mmol/L Blood Urea Nitrogen 13 7-18 mg/dL Creatinine 0.5 0.5-1.0 mg/dL Glomerular Filtration Rate Calc 118 >90 mL/min Random Glucose 111 H 70-105 mg/dL Total Calcium 7.8 L 8.5-10.1 mg/dL Current Medications Medications (Trade) Dose Ordered Sig/Juani Route PRN Reason Start Time Stop Time Status Last Admin Dose Admin Acetaminophen (TYLenol 325MG TAB) 650 mg Q4H PRN PO TEMPERATURE GREATER THAN 101.5 06/10/24 18:00 07/10/24 17:59 Acetaminophen (TYLenol 325MG TAB) 650 mg Q6H PRN PO MILD PAIN (1-3) 06/10/24 18:00 07/10/24 17:59 Azithromycin 250 ml @ 250 mls/hr Q24H IVPB 06/11/24 17:30 06/21/24 17:29 06/14/24 17:27 250 MLS/HR Ceftriaxone Sodium (Rocephin 2gm Inj) 2 gm Q24H IVPB 06/10/24 18:00 06/20/24 17:59 06/14/24 18:48 2 GM Enoxaparin Sodium (Lovenox) 40 mg DAILY SQ 06/11/24 09:00 07/11/24 08:59 06/15/24 09:53 40 MG Famotidine (Pepcid 20mg Tab) 20 mg BID PO 06/10/24 21:00 07/10/24 20:59 06/15/24 09:51 20 MG Fluticasone Propionate (FLOnase 50 mcg/ spray 16g bottle) 1 SPRAY DAILY NS 06/11/24 09:00 07/11/24 08:59 06/15/24 09:59 1 SPRAYS Guaifenesin/ Codeine Phosphate (RobiTUSSin AC 5 ML SYRUP) 5 ml Q6H PRN PO COUGH 06/11/24 01:00 07/11/24 00:59 06/15/24 10:05 5 ML Ipratropium [place] (AtrovENT UD) 0.5 MG [id number] IH 06/10/24 18:00 07/10/24 17:59 06/15/24 07:02 0.5 MG Loratadine (LORATAdine 10 mg) 10 mg DAILY PO 06/11/24 09:00 07/11/24 08:59 06/15/24 09:51 10 MG Magnesium Sulfate 50 ml @ 0 mls/hr PROTOCOL IV 06/11/24 08:30 06/11/24 08:36 DC Magnesium Sulfate 50 ml @ 0 mls/hr PROTOCOL PRN IV MAGNESIUM PROTOCOL 06/10/24 18:00 07/10/24 17:59 06/10/24 19:15 25 MLS/HR Methylprednisolone Sodium Succinate (Solu-medROL 40MG) 40 mg BID IVP 06/12/24 21:00 06/14/24 15:14 DC 06/14/24 11:19 40 MG Methylprednisolone Sodium Succinate (Solu-medROL 40MG) 80 mg Q8H IVP 06/11/24 10:00 06/12/24 17:18 DC 06/12/24 08:25 80 MG Methylprednisolone Sodium Succinate (Solu-medROL 125MG) 80 mg Q8H IVP 06/10/24 18:00 06/11/24 08:35 DC 06/11/24 02:34 80 MG Metoprolol Tartrate (loprESSOR) 5 mg Q8H PRN IV INCREASED HEART RATE 06/10/24 18:00 07/10/24 17:59 Montelukast Sodium (SinguLAIR) 10 mg HS PO 06/10/24 21:00 07/10/24 20:59 06/14/24 21:22 10 MG Nicotine (Nicoderm) 14 mg DAILY TD 06/12/24 21:00 07/12/24 20:59 06/15/24 09:58 14 MG Ondansetron HCl (zoFRAN 4MG INJ) 4 mg Q6H PRN IVP NAUSEA/VOMITING 06/10/24 18:00 07/10/24 17:59 Ondansetron HCl (zoFRAN 4MG ODT) 4 mg TIDP PRN PO NAUSEA 06/11/24 09:00 06/11/24 08:36 DC Pharmacy Profile Note (Pharmacy Communication) 1 each ONCE MISC 06/15/24 11:30 06/22/24 11:29 UNV Potassium Chloride 100 ml @ 100 mls/hr AD PRN IV POTASSIUM PROTOCOL 06/10/24 17:30 07/10/24 17:29 Potassium Chloride 100 ml @ 100 mls/hr AD PRN IV POTASSIUM PROTOCOL 06/10/24 18:00 07/10/24 17:59 UNV Potassium Chloride (K-Dur/Klor-Con 20meq) 20 meq AD PRN PO POTASSIUM PROTOCOL 06/10/24 17:30 07/10/24 17:29 06/15/24 09:52 20 MEQ Potassium Chloride (K-Dur/Klor-Con 20meq) 20 meq AD PRN PO POTASSIUM PROTOCOL 06/10/24 18:00 07/10/24 17:59 UNV Potassium Chloride (KCl 10% Elixir 20meq/15ml) 20 meq AD PRN PO POTASSIUM PROTOCOL 06/10/24 17:30 07/10/24 17:29 Potassium Chloride (KCl 10% Elixir 20meq/15ml) 20 meq AD PRN PO POTASSIUM PROTOCOL 06/10/24 18:00 07/10/24 17:59 UNV Prednisone (deltaSONE/ oraSONE 20MG TAB) 40 mg DAILY PO 06/15/24 09:00 07/15/24 08:59 06/15/24 09:52 40 MG DIAGNOSTICS / RADIOLOGY: [ ] ASSESSMENT: [Acute Sepsis, POA Acute hypoxic respiratory failure, POA Left lung pneumonia and suspected early right lung pneumonia, POA aspiration pneumonia, POA POA Acute on chronic Asthma exacerbation, POA uncontrolled DM type 2 with hyperglycemia POA moderate malnutrition POA Hypokalemia, POA Hyponatremia, POA Hypochloremia, POA Hyperglycemia, POA hypomagnesemia 1.7 POA] Morbid obesity, POA PLAN: [Admit to P[facility]U Sputum culture pending 6 minute walk we will need home oxygen case management suggested to repeat close to discharge. Test 2D echo venous Dopplers. Noted methylprednisolone to 40 mg b.i.d. IV changed to p.o. prednisone and bronchodilators O2 supplementation to keep O2 sats greater than 92% we will titrate as tolerated Encourage IS while awake Antibiotics: Continue Rocephin2 g every 24 hours. Consulted critical team Blood culture so far negative Replace electrolytes as needed basis GI prophylaxis and DVT prophylaxis Smoking cessation nicotine patch PT continue to work with patient. All questions addressed Further orders as per response to treatment Case discussed with the attending Dr. Hurst. ATTESTATION BY PHYSICIAN I have seen and examined the patient. I reviewed the documentation, medical decision making, and treatment plan as noted by the mid-level provider above. I agree with the findings and plan of care. JOHNNA HURST MD, ELIZABETH NP Jun 15, 2024 11:13
[2024-06-15] MEDS ORDERED: PHARMACY COMMUNICATION MISC SCH (11:30)
--- NOTE | 2024-06-15 13:56 | PN ---
[facility] PROGRESS NOTE Date Patient Seen: Jun 15, 2024 Time of Visit: 13:56 Supervising Physician: Bart Lyon MD Primary Care Physician: MAMTA SHELTON DO Outpatient Specialists: [ ] Inpatient Consults: Pulmonology PROBLEM LIST: Acute hypoxemic respiratory failure. POA., resolving Bilateral community-acquired pneumoniae POA. Acute on chronic asthma exacerbation POA. Hypomagnesemia. Corrected Transaminitis without hyperbilirubinemia. Diabetes mellitus type 2 with hyperglycemia , hemoglobin A1c 6.2. Current smoker with a 8-pack year smoking history. Hypertension. Morbid obesity BMI 45.8 kg/m2. INTERVAL HISTORY: 06/12/2024: At the time of my evaluation, the patient was sitting up on her bed. She will remain on oxygen supplementation via nasal cannula, 2 liters/minute, she is stable on the monitor. Laboratory data today showed a slight increase of WBC to 13.5 probably reactive steroids. On chemistry, there was persisting transaminitis but improved compared to yesterday. On chest x- ray, there is persisting ground-glass opacities/infiltrates. No other complaint. 06/13/2024: At the time of my evaluation, the patient is lying in bed. She continues on oxygen supplementation via the nasal cannula at 2 liters/minute. Patient continues on steroid therapy and antibiotic coverage. WBC count today nannette to 13.0. No other complaint. 06/14 patient was seen and examined by bedside with family present. Patient currently on2 L nasal cannula appears to be tolerating well. Patient does not use home oxygen. Patient did fail 6 minute walk case management to work on home oxygen arrangements prior to discharge. Patient currently pending echocardiogram and venous Dopplers to lower extremity we will follow up results. At this time we will discontinue patient's Solu-Medrol and transition patient to prednisone 40 mg daily x5 days. At time of visit patient denies any chest pain report shortness of breadth upon minimal exertion. Has remained hemodynamically stable 06/15 Ptis awake alert and oriented x3. continues with ocassional dry cough. Per RN pending repeat 6 min walk.Likely in AM. CBC unremarkable, on chemistry potasiium 3.4, covered per protocol. Likle DC in the next 24 to 48 hrs. REVIEW OF SYSTEMS: 12 point ROS reviewed with patient. Pertinent positives mentioned above. Otherwise negative. PHYSICAL EXAM: GENERAL: Alert, weak, awake oriented x 3 HEENT: EOMI, Sclera non icteric, moist mucosa NECK: Supple, no JVD, trachea midline LUNGS: Diminished breath sounds bilaterally. No wheezes HEART: Regular rate and rhythm. Normal S1 and S2, without murmurs ABD: Abdomen soft, nontender. Bowel sounds present EXT: No clubbing cyanosis or edema NEURO: Alert and oriented to person, follows commands Vital Signs (last 8hr) Date Time Temp Pulse Resp B/P (MAP) Pulse Ox O2 Delivery O2 Flow Rate FiO2 06/15/24 11:37 97.9 82 18 135/93 96 Room Air 06/15/24 11:12 83 18 N/A Room Air 21 06/15/24 11:12 83 18 06/15/24 08:00 96 Nasal Cannula* 2 28 06/15/24 07:56 97.7 76 18 136/87 100 Nasal Cannula 2.0 06/15/24 07:03 76 18 06/15/24 07:02 76 18 N/Cannula Low lpm 2.0 28 LABS: Hematology Labs: Test 06/15/24 03:20 Range/Units White Blood Count 10.7 4.8-10.8 K/uL Red Blood Count 4.01 4.00-5.50 MIL/uL Hemoglobin 11.9 L 12.0-16.0 g/dL Hematocrit 36.1 36-48 % Mean Corpuscular Volume 90.0 79-99 fL Mean Corpuscular Hemoglobin 29.7 27.0-33.0 pg Mean Corpuscular Hemoglobin Concent 33.0 32.0-36.0 g/dL Red Cell Distribution Width 12.7 11.0-15.5 % Platelet Count 370 130-400 K/uL Mean Platelet Volume 8.9 7.5-10.5 fL Immature Granulocyte % (Auto) 6.0 H 0-1 % Neutrophils (%) (Auto) 52.9 40.0-77.0 % Lymphocytes (%) (Auto) 32.9 21.0-51.0 % Monocytes (%) (Auto) 7.4 3.0-13.0 % Eosinophils (%) (Auto) 0.1 0.0-8.0 % Basophils (%) (Auto) 0.7 0.0-5.0 % Neutrophils # (Auto) 5.7 1.8-7.7 K/uL Lymphocytes # (Auto) 3.5 1.0-4.8 K/uL Monocytes # (Auto) 0.8 0.1-1.0 K/uL Eosinophils # (Auto) 0.01 0.00-0.70 K/uL Basophils # (Auto) 0.07 0.00-0.20 K/uL Absolute Immature Granulocyte (auto 0.64 0-1 K/uL Segmented Neutrophils % 51 40-70 % Band Neutrophils % 2 0-2 % Lymphocytes % (Manual) 44 22-44 % Monocytes % (Manual) 3 2-9 % Nucleated Red Blood Cells 0.2 H 0.0-0.19 % Differential Comment MANUAL DIFFERENTIAL White Cell Morphology Comment Platelet Morphology Comment See comments Red Blood Cell Morphology ANISO 1+ Chemistry Labs: Test 06/15/24 03:20 Range/Units Sodium Level 136 136-145 mmol/L Potassium Level 3.4 L 3.5-5.1 mmol/L Chloride Level 101 101-111 mmol/L Carbon Dioxide Level 30 21-32 mmol/L Blood Urea Nitrogen 13 7-18 mg/dL Creatinine 0.5 0.5-1.0 mg/dL Glomerular Filtration Rate Calc 118 >90 mL/min Random Glucose 111 H 70-105 mg/dL Total Calcium 7.8 L 8.5-10.1 mg/dL DIAGNOSTICS / RADIOLOGY RESULTS: [ ] PLAN Discontinue patient's Solu-Medrol Transition to prednisone 40 mg daily x5 days Continue with current IV antibiotics Case management to arrange for home oxygen prior to discharge Continue to actively titrate FiO2 as tolerated Continue to monitor respiratory status Maintain adequate perfusion Keep O2 sats greater or equal to 90% NEURO: Minimize central acting medications as possible. Maintain fall precautions, adequate lighting during the day PULMONARY: Supplemental 02 as needed. Maintain aspiration precautions at all times CARDIOVASCULAR: Follow hemodynamics. Vital signs per facility protocol GI & NUTRITION: Continue with nutritional support. Continue stool softeners and laxatives as needed. KIDNEYS & ELECTROLYTES: Strict monitoring of intake, output and overall fluid balance. Avoid nephrotoxic medications to the extent possible. Medications to be dosed according to renal function. Monitor electrolytes and replace as needed ENDOCRINE: Maintain blood glucose between 100-180 at all times. Hypoglycemia protocol in place INFECTIOUS DISEASE: Trend temperature, WBC and procalcitonin level Follow cultures, deescalate antibiotics as soon as possible. Panculture if new onset fever ONCOLOGY/HEMATOLOGY/COAGULATION: Monitor for s/s of bleeding Monitor hemoglobin, coagulation studies as needed SKIN: Pressure ulcer prevention per facility protocol Specialty mattress ORTHO/REHAB: Continue PT/OT Prophylaxis: Continue GI and DVT prophylaxis Code Status: Full Resuscitation Disposition: Per primary team Case discussed with supervising physician plan of care agreed upon Other: ATTESTATION BY PHYSICIAN I have evaluated the patient chart, medical records, and spoke with appropriate staff. I reviewed the documentation, medical decision making, and treatment plan as noted by the mid-level provider above. I agree with the findings and plan of care. Bart Lyon MD, [facility] Jun 15, 2024 13:56
[2024-06-16] VITALS (9 sets, daily range): BP systolic 118–134; BP diastolic 78–91; PULSE 58–114; RESP 16–22; TEMP 97.7–98.4; O2SAT 94–98
[2024-06-16 03:54] LABS: BASOPHILS # (AUTO) 0.05 K/uL (0.00-0.20); BASOPHILS % (AUTO) 0.4 % (0.0-5.0); EOSINOPHILS % (AUTO) 0.8 % (0.0-8.0); HEMATOCRIT 38.2 % (36-48); IMMATURE GRANULOCYTE ABSOLUTE 0.55 K/uL (0-1); LYMPHOCYTES # (AUTO) 4.6 K/uL (1.0-4.8); LYMPHOCYTES % (AUTO) 39.3 % (21.0-51.0); MEAN CORPUSCULAR HEMOGLOBIN 29.5 pg (27.0-33.0); MEAN CORPUSCULAR HGB CONC 33.2 g/dL (32.0-36.0); MEAN CORPUSCULAR VOLUME 88.6 fL (79-99); MONOCYTES % (AUTO) 8.2 % (3.0-13.0); NEUTROPHILS # (AUTO) 5.5 K/uL (1.8-7.7); NEUTROPHILS % (AUTO) 46.6 % (40.0-77.0); PLATELET COUNT (AUTO) 462 K/uL (130-400); RED BLOOD CELL COUNT(AUTO) 4.31 MIL/uL (4.00-5.50); RED CELL DISTRIBUTION WIDTH 12.5 % (11.0-15.5); WHITE BLOOD COUNT (AUTO) 11.8 K/uL (4.8-10.8)
[2024-06-16 04:12] LABS: CREATININE 0.6 mg/dL (0.5-1.0); MAGNESIUM 2.2 mg/dL (1.80-2.40); POTASSIUM 3.6 mmol/L (3.5-5.1)
[2024-06-16] MEDS ORDERED: IPRAHFA IH (08:30)
[2024-06-16] MEDS ORDERED: PRED20TA3 PO (08:30)
[2024-06-16] MEDS ORDERED: CEFD300C3 PO (08:30)
[2024-06-16] MEDS ORDERED: MONT-39 PO (08:30)
--- NOTE | 2024-06-16 08:37 | DS ---
Discharge Summary Hospital Course Summary: [06/10/24 43-year-old female with past medical history of asthma to the emergency department with complaints of shortness of breaths. Patient is accompanied by her daughter who is also helping with this question and answer. Patient apparently has been having issues of shortness of breaths since 06/06. Patient has been using her albuterol nebulizer treatment but has not improved her condition hence she decided to come to the emergency department. Associated symptoms also include fever which is on and off, weakness and lethargy. In the emergency department, her initial vitals showed fever of 101.1 F, HR between [id number], RR 22, BP 146/75, O2 saturation 90% on2 L via nasal cannula. Patient was evaluated in ED room seven, she is short of breath, noted labored breathing and accessory muscle use. Unable to speak, daughter is speaking for her at this time. She is unable to lay flat and sitting on the gurney. Labs will be, hematology is unremarkable, chemistry showed Na 130, K3.3, Cl 93, random glucose 115. Patient was negative for COVID, influenza a/B and strep. Patient was referred to the hospitalist for further evaluation and management. 06/11/24 patient was seen by nurse practitioner and physician during rounding in room ED 12 lying in bed. Patient's magnesium today is 1.7 patient receive 2 g of magnesium. Also patient received 40 mEq of potassium for potassium of 3.5. Chest x-ray showed left lower pneumonia of the early right pneumonia. CT chest showed bilateral reticular nodular pulmonary infiltrates with ground-glass infiltrate. Patient was evaluated by adult education professional at this moment we are waiting further recommendations. Patient continues to be on methylprednisolone 80 mg q.8 hours. Patient is on Azithromycin, Rocephin at this moment. Sodium has imporved from 120 to 135. We will continue to monitor patient in the meantime. A.m. labs 06/12 patient was seen by nurse practitioner physician during rounding in room 202. Patient continues to be on azithromycin and ceftriaxone. Patient is on room air at this moment we will lower steroids methylprednisolone to 40 b.i.d.. Patient will also receive nicotine patch since she has a current smoker of half pack a day. Chest x-ray showed bilateral infiltrate vascular congestion pneumonitis. Dietary was consulted. Pulmonology on case. Blood and sputum culture pending. We will continue to monitor patient in the meantime. A.m. lab 06/13 patient was seen by HATCHERY MANAGER and physician during rounding. Patient's WBC today is at 13 which could be due to steroids on board methylprednisolone 40 mg b.i.d.. Patient continues to be on azithromycin and Rocephin. Patient is also a half pack smoker nicotine patch was added to patient's daily regimen. Final urine cultures negative blood culture 48 hours negative sputum culture pending. prior discharge we will request the patient undergo 6 minute walk with PT. We will continue to monitor patient in the meantime. A.m. labs.] 06/14/2024. Patient remains on oxygen supplemental patient appears to be very dyspneic on minimal exertion patient did not pass 6 minute walk we will need home oxygen case management was made aware. 06/15/24 patient continues supplemental to titrate as tolerated repeat suspected discharge 24 hrs 06/16/2024 patient is clinically stable she is currently on saturations spoke 95% 6 minute saturation levels 93 95%. Encouraged patient to continue use IS while awake encourage ambulation as tolerated. Patient was advised on smoking cessation and weight management modify lifestyle changes. Patient we will be discharged on oral antibiotics advised to take as directed. All questions addressed. Food Cart Attendant(s): REASON: pna ORDERING PHYSICIAN: WILLI JAY APRN PROCEDURE: CHEST WO - CT CHEST W/O CONTRAST CT CHEST W/O CONTRAST HISTORY: Pneumonia COMPARISON: 10/01/2023 TECHNIQUE: Multiple sequential axial images of the chest were obtained from the thoracic inlet through upper abdomen. Patient was not given contrast through intravenous route. FINDINGS: Bilateral reticular nodular pulmonary infiltrates are seen with left more than right. Fatty changes of the liver are noted. Postcholecystectomy changes are seen. No pleural effusion or pericardial effusion is seen. There is no evidence of pneumothorax. There are normal size mediastinal and hilar lymph nodes. The heart is not enlarged. Degenerative changes of the thoracolumbar spine are present. There is no evidence of adrenal nodule. IMPRESSION: 1. Bilateral reticular nodular pulmonary infiltrates and groundglass infiltrates with left more than right. Procedure(s): REASON: elevate LV function ORDERING PHYSICIAN: BARRETT LOCKHART NP PROCEDURE: ECHO CMP - ECHO 2-D COMPLETE APPROVED REPORT EXAM: Two-dimensional and M-mode echocardiogram with Doppler and color Doppler. INDICATION ICD: Assess LV Function 2D Dimensions RVDd 3.2 cm LVEF(%) 61.0 (>50%) LVED Vol(simp.) 77.9 mL IVSd 0.8 (0.7-1.1cm) FS(%) 33 % LVES Vol(simp.) 34.2 mL LVDd 4.7 (3.8-5.6cm) LA (2D) 3.9 (1.6-4.0cm) LVEF(%, simp.) 56 % PWd 1.1 (0.7-1.1cm) Ao Root(2D) 2.7 (2.0-3.7cm) LVDs 3.2 (2.5-4.0cm) LVOT diam 2.0 (1.8-2.4cm) IVC diam 2.3 cm Deformation Strain Apical 4 -16.0 % Apical 2 -15.0 % Apical 3 -13.0 % Global Strain -15.0 % M-Mode Dimensions EPSS 0.9 cm LA (MM) 3.7 (1.6-4.0cm) Ao Root(MM) 3.1 (2.0-3.7cm) Aortic Valve AoV Vmax 1.3 m/s Ao Peak GR 6.3 mmHg LVOT Vmax 1.0 m/s AoV VTI 0.3 m Ao Mean GR 3.2 mmHg LVOT VTI 0.24 m YAMILET (VMAX) 2.7 cm2 YAMILET (VTI) 2.7 cm2 Mitral Valve MV E Vmax 94.9 cm/s DECEL Time 126 ms MV A Vmax 103.5 cm/s P 1/2 T 49 ms E/A ratio 0.9 MVA (PHT) 4.5 cm2 TDI E/E' Medial 10.5 Medial E' Peak V 9.00 cm/s Tricuspid Valve TR Vmax 2.4 m/s RAP (EST) 15 mmHg RVSP 37.2 mmHg TR Peak GR 22.2 mmHg Left Ventricle The left ventricle is normal size. GS -15%. No regional wall motion abnormalities noted. There is normal left ventricular wall thickness. LVEF is 55-60%. The left ventricular diastolic function is normal. Right Ventricle The right ventricle is normal size. The right ventricular systolic function is normal. Atria The left atrium size is normal. The right atrium size is normal. Aortic Valve The aortic valve is normal in structure. No aortic regurgitation is present. There is no aortic valvular stenosis. Mitral Valve The mitral valve is normal in structure. There is no evidence of significant mitral regurgitation. There is no mitral valve stenosis. Tricuspid Valve The tricuspid valve is normal in structure. There is trace tricuspid valve regurgitation noted. Pulmonic Valve The pulmonary valve is normal in structure. There is no pulmonic valvular regurgitation. Great Vessels The aortic root is normal in size. IVC is dilated and collapses <50% with inspiration. Pericardium There is no pericardial effusion. Other Information Quality : Adequate Conclusion LVEF is 55-60%. LVEF is 55-60%. The right ventricular systolic function is normal. GS -15%. No regional wall motion abnormalities noted. There is no evidence of significant mitral regurgitation. There is trace tricuspid valve regurgitation noted. There is no pericardial effusion. DICTATED BY: PK SWEENEY MD DATE: 06/14/241416 REASON: sob ORDERING PHYSICIAN: BARRETT LOCKHART NP PROCEDURE: VENOUS CHARBEL - US VENOUS DOPPLER BILATERAL US VENOUS DOPPLER BILATERAL HISTORY: DVT COMPARISON: None TECHNIQUE: Bilateral lower extremity venous Doppler ultrasound study was performed. FINDINGS: The common femoral, femoral, popliteal, and posterior tibial veins are visualized. Normal flow with augmentation and compressibilities are demonstrated. The greater saphenous veins are also seen and grossly patent. IMPRESSION: 1. No evidence of deep venous thrombosis is seen. REASON: sob ORDERING PHYSICIAN: BARRETT LOCKHART NP PROCEDURE: VENOUS CHARBEL - US VENOUS DOPPLER BILATERAL US VENOUS DOPPLER BILATERAL HISTORY: DVT COMPARISON: None TECHNIQUE: Bilateral lower extremity venous Doppler ultrasound study was performed. FINDINGS: The common femoral, femoral, popliteal, and posterior tibial veins are visualized. Normal flow with augmentation and compressibilities are demonstrated. The greater saphenous veins are also seen and grossly patent. IMPRESSION: 1. No evidence of deep venous thrombosis is seen. Assessment/Plan: discharged diagnosis [Acute Sepsis, POA blood cultures: negative. Acute hypoxic respiratory failure, POA resolved on room air Left lung pneumonia and suspected early right lung pneumonia, POA aspiration pneumonia, POA POA ruled out Acute on chronic Asthma exacerbation, POA improved uncontrolled DM type 2 with hyperglycemia POA moderate malnutrition POA Hypokalemia, POA Hyponatremia, POA Hypochloremia, POA Hyperglycemia, POA hypomagnesemia 1.7 POA] Morbid obesity, POA active smoker: POA advise on cessation PLAN: ADMISSION DATE: 06/10/2024 DISCHARGE DATE: 06/16/2024 DISPOSITION: Home CONDITION: Stable RECORDS MANAGEMENT MANAGER(S): Pulmonology; DR Jason Araujo FOLLOW UP APPOINTMENT(S): PCP 2-3 days: Chantal Mccollum DO. DR Jason Araujo 1-2 wks. PROCEDURES: IMAGING (S) report attached to summary : Echo, venous Doppler, chest CT MICROBIOLOGY: report attached to summary; blood cultures x5 days no growth, respiratory cultures ACTIVITY: Ad rachel HOME MEDICATIONS reviewed CHANGES ON HOME MEDICATIONS discontinue Tamiflu NEW MEDICATIONS Cefdinir 300 Mg Capsule Ipratropium [place] (Atrovent Hfa) 17 Mcg/Actuation Hfa.aer.ad Montelukast Sodium 10 Mg Tablet Prednisone 20 Mg Tablet TEACHING: Advised patient to complete antibiotics as directed and prednisone as directed per adult education professional's. weight management: Modified Lifestyle Changes smoking cessation Emergency instructions: The patient was instructed to present to the nearest Emergency Department or call 911 should their symptoms return or worsen. Home Medications: Active Scripts Loratadine (Loratadine) 10 Mg Tablet, 1 TAB PO DAILY for allergy symptoms for 30 Days, #30 TAB 0 Refills Prov:SHIRA LOCKWOOD MD 06/08/24 Fluticasone Propionate (Flonase Nasal [place]) 50 Mcg/Actuation [place], 2 SPRAY NS DAILY, #16 GM 0 Refills Prov:SHIRA LOCKWOOD MD 06/08/24 Oseltamivir Phosphate (Tamiflu) 75 Mg Cap, 1 CAP PO BID for 5 Days, #10 CAP 0 Refills Prov:SHIRA LOCKWOOD MD 06/08/24 Ondansetron (Ondansetron Odt) 4 Mg Tab.rapdis, 4 MG PO TIDP PRN for NAUSEA, #30 TAB 0 Refills Prov:LIZA PARKER MD 10/01/23 New Medications: Cefdinir (Cefdinir) 300 Mg Capsule 1 CAP PO BID for 7 Days, #14 CAP 0 Refills Ipratropium [place] (Atrovent Hfa) 17 Mcg/Actuation Hfa.aer.ad 2 PUFF IH QID PRN for SHORTNESS OF BREATH for 30 Days, #1 GM 0 Refills Montelukast Sodium (Montelukast Sodium) 10 Mg Tablet 10 MG PO DAILY for 10 Days, #1 TAB Prednisone (Prednisone) 20 Mg Tablet 40 MG PO DAILY for 5 Days, #5 TAB Continued Medications: Fluticasone Propionate (Flonase Nasal [place]) 50 Mcg/Actuation [place] 2 SPRAY NS DAILY, #16 GM 0 Refills Loratadine (Loratadine) 10 Mg Tablet 1 TAB PO DAILY for allergy symptoms for 30 Days, #30 TAB 0 Refills Ondansetron (Ondansetron Odt) 4 Mg Tab.rapdis 4 MG PO TIDP PRN for NAUSEA, #30 TAB 0 Refills Discontinued Medications: Oseltamivir Phosphate (Tamiflu) 75 Mg Cap 1 CAP PO BID for 5 Days, #10 CAP 0 Refills Time spent arranging discharge: 31-60 minutes ATTESTATION BY PHYSICIAN I have seen and examined the patient. I reviewed the documentation, medical decision making, and treatment plan as noted by the mid-level provider above. I agree with the findings and plan of care. JOHNNA HURST MD, ELIZABETH NP Jun 16, 2024 08:37
--- NOTE | 2024-06-16 10:53 | HMCIMG ---
PORTABLE CHEST RADIOGRAPH INDICATION: hypoxic resp failure COMPARISON: 06/12/2024 FINDINGS: campus monitor leads overlie the field of view. Heart size is normal. The pulmonary vascularity and carrington appear normal. No abnormal pulmonary parenchymal opacity or consolidation identified. No significant pleural effusion noted. No pneumothorax detected. IMPRESSION: No radiographic evidence for any acute cardiopulmonary process.
--- NOTE | 2024-06-16 12:52 | PN ---
[facility] PROGRESS NOTE Date Patient Seen: Jun 16, 2024 Time of Visit: 12:47 Supervising Physician:Martin Barriga MD Primary Care Physician: MAMTA SHELTON DO Outpatient Specialists: [ ] Inpatient Consults: Pulmonology PROBLEM LIST: Acute hypoxemic respiratory failure. POA., resolving Bilateral community-acquired pneumoniae POA. Acute on chronic asthma exacerbation POA. Hypomagnesemia. Corrected Transaminitis without hyperbilirubinemia. Diabetes mellitus type 2 with hyperglycemia , hemoglobin A1c 6.2. Current smoker with a 8-pack year smoking history. Hypertension. Morbid obesity BMI 45.8 kg/m2. INTERVAL HISTORY: Patient is awake alert oriented x3. She has passed her 6 minute walk today. No need for home O2 oxygen. She is hemodynamically stable and afebrile. Likely DC in the next 24hours per primary team. REVIEW OF SYSTEMS: 12 point ROS reviewed with patient. Pertinent positives mentioned above. Otherwise negative. PHYSICAL EXAM: GENERAL: Alert, weak, awake oriented x 3 HEENT: EOMI, Sclera non icteric, moist mucosa NECK: Supple, no JVD, trachea midline LUNGS: Diminished breath sounds bilaterally. No wheezes HEART: Regular rate and rhythm. Normal S1 and S2, without murmurs ABD: Abdomen soft, nontender. Bowel sounds present EXT: No clubbing cyanosis or edema NEURO: Alert and oriented to person, follows commands Vital Signs (last 8hr) Date Time Temp Pulse Resp B/P (MAP) Pulse Ox O2 Delivery O2 Flow Rate FiO2 06/16/24 12:07 97.9 98 16 126/78 97 Room Air 06/16/24 11:48 98 18 06/16/24 11:34 86 18 21 114 22 21 06/16/24 08:00 96 Room Air* 0 21 06/16/24 07:59 97.7 58 16 118/79 100 Room Air 06/16/24 07:21 86 18 06/16/24 07:20 18 N/A Room Air 21 LABS: Hematology Labs: Test 06/16/24 03:40 06/15/24 03:20 Range/Units White Blood Count 11.8 H 4.8-10.8 K/uL Red Blood Count 4.31 4.00-5.50 MIL/uL Hemoglobin 12.7 12.0-16.0 g/dL Hematocrit 38.2 36-48 % Mean Corpuscular Volume 88.6 79-99 fL Mean Corpuscular Hemoglobin 29.5 27.0-33.0 pg Mean Corpuscular Hemoglobin Concent 33.2 32.0-36.0 g/dL Red Cell Distribution Width 12.5 11.0-15.5 % Platelet Count 462 H 130-400 K/uL Mean Platelet Volume 8.7 7.5-10.5 fL Immature Granulocyte % (Auto) 4.7 H 0-1 % Neutrophils (%) (Auto) 46.6 40.0-77.0 % Lymphocytes (%) (Auto) 39.3 21.0-51.0 % Monocytes (%) (Auto) 8.2 3.0-13.0 % Eosinophils (%) (Auto) 0.8 0.0-8.0 % Basophils (%) (Auto) 0.4 0.0-5.0 % Neutrophils # (Auto) 5.5 1.8-7.7 K/uL Lymphocytes # (Auto) 4.6 1.0-4.8 K/uL Monocytes # (Auto) 1.0 0.1-1.0 K/uL Eosinophils # (Auto) 0.10 0.00-0.70 K/uL Basophils # (Auto) 0.05 0.00-0.20 K/uL Absolute Immature Granulocyte (auto 0.55 0-1 K/uL Nucleated Red Blood Cells 0.0 0.0-0.19 % Segmented Neutrophils % 51 40-70 % Band Neutrophils % 2 0-2 % Lymphocytes % (Manual) 44 22-44 % Monocytes % (Manual) 3 2-9 % Differential Comment MANUAL DIFFERENTIAL White Cell Morphology Comment Platelet Morphology Comment See comments Red Blood Cell Morphology ANISO 1+ Chemistry Labs: Test 06/16/24 03:40 Range/Units Sodium Level 141 136-145 mmol/L Potassium Level 3.6 3.5-5.1 mmol/L Chloride Level 104 101-111 mmol/L Carbon Dioxide Level 31 21-32 mmol/L Blood Urea Nitrogen 13 7-18 mg/dL Creatinine 0.6 0.5-1.0 mg/dL Glomerular Filtration Rate Calc 113 >90 mL/min Random Glucose 100 70-105 mg/dL Total Calcium 8.1 L 8.5-10.1 mg/dL Magnesium Level 2.20 1.80-2.40 mg/dL DIAGNOSTICS / RADIOLOGY RESULTS: Signed PATIENT: MADAN DAVISON MR#: [id number] : 1980 SEX: F AGE: 43 LOCATION: 2AH ORDER 2 STATUS: ADM IN REPORT#: [id number] SERVICE REASON: hypoxic resp failure ORDERING PHYSICIAN: KARISSA KINCAID PROCEDURE: CXR1VW - CHEST 1VW PORTABLE CHEST RADIOGRAPH INDICATION: hypoxic resp failure COMPARISON: 06/12/2024 FINDINGS: quality assurance monitor final leads overlie the field of view. Heart size is normal. The pulmonary vascularity and carrington appear normal. No abnormal pulmonary parenchymal opacity or consolidation identified. No significant pleural effusion noted. No pneumothorax detected. IMPRESSION: No radiographic evidence for any acute cardiopulmonary process. DICTATED BY: JHOANA CLEMONS MD DATE: 06/16/24 105 ELECTRONICALLY SIGNED BY: JHOANA CLEMONS MD DATE: 06/16/24 105 PLAN prednisone 40 mg daily x5 days pt passed her 6 min walk. Pt at room air no distress. follow up with pulmonology of choice for PFT's and sleep apnea studies NEURO: Minimize central acting medications as possible. Maintain fall precautions, adequate lighting during the day PULMONARY: Supplemental 02 as needed. Maintain aspiration precautions at all times CARDIOVASCULAR: Follow hemodynamics. Vital signs per facility protocol GI & NUTRITION: Continue with nutritional support. Continue stool softeners and laxatives as needed. KIDNEYS & ELECTROLYTES: Strict monitoring of intake, output and overall fluid balance. Avoid nephrotoxic medications to the extent possible. Medications to be dosed according to renal function. Monitor electrolytes and replace as needed ENDOCRINE: Maintain blood glucose between 100-180 at all times. Hypoglycemia protocol in place INFECTIOUS DISEASE: Trend temperature, WBC and procalcitonin level Follow cultures, deescalate antibiotics as soon as possible. Panculture if new onset fever ONCOLOGY/HEMATOLOGY/COAGULATION: Monitor for s/s of bleeding Monitor hemoglobin, coagulation studies as needed SKIN: Pressure ulcer prevention per facility protocol Specialty mattress ORTHO/REHAB: Continue PT/OT Prophylaxis: Continue GI and DVT prophylaxis Code Status: Full Resuscitation Disposition: Per primary team Case discussed with supervising physician plan of care agreed upon Other: ATTESTATION BY PHYSICIAN I attest that I reviewed and discussed the case with the Physician Weight Count Operator as well as agree with the Physician Weight Count Operator's findings, plans of care, and documentation above. Martin Theodore MD, NELLY J ARNP Jun 16, 2024 12:52
--- NOTE | 2024-06-16 13:37 | NUR ---
DISCHARGE HOME IV, TELEPAK AND ID BANDS REMOVED. DISCHARGE INSTRUCTIONS GIVEN AND EXPLAINED TO PATIENT. BELONGINGS PACKED AND TAKEN BY PATIENT. PATIENT WHEELED DOWN TO PRIVATE CAR.
== END 2024-06-16 13:35 | disposition home or self-care (01) | DRG 871 ==
LOC: EDH 15:21 → EDHIP 17:22 → 2AH 06-11 17:10
PROVIDERS: ADMIT Hospitalist; ATTEND Hospitalist
DX: A41.9 Sepsis, unspecified organism (principal); J18.9 Pneumonia, unspecified organism; J96.01 Acute respiratory failure with hypoxia; J45.901 Unspecified asthma with (acute) exacerbation; E44.0 Moderate protein-calorie malnutrition; E87.1 Hypo-osmolality and hyponatremia; Z68.41 Body mass index [BMI] 40.0-44.9, adult; Z20.822 Contact with and (suspected) exposure to COVID-19; F17.210 Nicotine dependence, cigarettes, uncomplicated; E11.65 Type 2 diabetes mellitus with hyperglycemia; E87.6 Hypokalemia; E87.8 Other disorders of electrolyte and fluid balance, not elsewhere classified; E83.42 Hypomagnesemia; J98.4 Other disorders of lung; E78.00 Pure hypercholesterolemia, unspecified; I10 Essential (primary) hypertension; Z71.6 Tobacco abuse counseling; Z82.49 Family history of ischemic heart disease and other diseases of the circulatory system; Z79.899 Other long term (current) drug therapy
CPT/HCPCS: 36415; 36600; 71045; 71250; 80048; 80053; 81001; 82803; 83036; 83605; 83735; 83880; 84145; 84484; 85025; 85027; 86738; 87040; 87071; 87205; 87426; 87449; 87804; 87880; 93306; 93356; 93970; 94640; 94664; 94760; 96365; 96368; 96375; 99291; G0378; J0456; J0696; J1650; J1940; J2919; J3475; J7030

== ENCOUNTER 2024-11-08 23:31 | Emergency (ER) | payer BC, OTHER ==
[~2024-11-08] VITALS: Ht 149.9 cm; Wt 99.8 kg
[~2024-11-08 23:31] MED LIST changes: +CEFD300C3 PO; +IPRAHFA IH; +MONT-39 PO; -OSEL75 PO; +PRED20TA3 PO
--- NOTE | 2024-11-08 23:45 | ERN ---
ED Note History of Present Illness Stated Complaint: C/O RIGHT RIB PAIN, SOB Chief Complaint: Rib Pain Time Seen by MD: 23:39 Dictation: 44-YEAR-OLD [facility] COMPLAINTS OF NON TRAUMA RIGHT LATERAL INFERIOR CHEST WALL PAIN TENDERNESS FOR THE LAST 4-5 DAYS. SHE DENIES SUBSTERNAL CHEST PAIN NO FEVER NO CHILLS NO COUGH. THERE WAS NO RASH TO THE CHEST. SHE STATES SHE HAS HAD NO RECENT TRAUMA OR FALLS. SHE HAS NOT TAKEN ANYTHING FOR PAIN NOR DID SHE GO SEE HER PRIMARY CARE DOCTOR. STATES IT IS WORSE WHEN SHE COUGHS OR STRETCHES. Allergies: Coded Allergies: No Known Drug Allergies (Unverified Allergy, Unknown, 10/01/23) Home Meds Active Scripts Ipratropium [place] (Atrovent Hfa) 17 Mcg/Actuation Hfa.aer.ad, 2 PUFF IH QID PRN for SHORTNESS OF BREATH for 30 Days, #1 GM 0 Refills Prov:BARRETT LOCKHART NP 06/16/24 Montelukast Sodium (Montelukast Sodium) 10 Mg Tablet, 10 MG PO DAILY for 10 Days, #1 TAB Prov:BARRETT LOCKHART NP 06/16/24 Prednisone (Prednisone) 20 Mg Tablet, 40 MG PO DAILY for 5 Days, #5 TAB Prov:BARRETT LOCKHART NP 06/16/24 Cefdinir (Cefdinir) 300 Mg Capsule, 1 CAP PO BID for 7 Days, #14 CAP 0 Refills Prov:BARRETT LOCKHART NP 06/16/24 Loratadine (Loratadine) 10 Mg Tablet, 1 TAB PO DAILY for allergy symptoms for 30 Days, #30 TAB 0 Refills Prov:SHIRA LOCKWOOD MD 06/08/24 Fluticasone Propionate (Flonase Nasal [place]) 50 Mcg/Actuation [place], 2 SPRAY NS DAILY, #16 GM 0 Refills Prov:SHIRA LOCKWOOD MD 06/08/24 Ondansetron (Ondansetron Odt) 4 Mg Tab.rapdis, 4 MG PO TIDP PRN for NAUSEA, #30 TAB 0 Refills Prov:LIZA PARKER MD 10/01/23 Past Medical History Past Medical History: Asthma, Diabetes-Type II Surgical History: None History: Not Applicable RN Note Reviewed/Agreed w/PFSH: Yes Review of System Dictation CONSTITUTIONAL: NEGATIVE EXCEPT FOR HPI HEAD/FACE: NEGATIVE EXCEPT FOR HPI EENT: NEGATIVE EXCEPT FOR HPI RESPIRATORY: NEGATIVE EXCEPT FOR HPI RIGHT INFEROLATERAL CHEST WALL PAIN TENDERNESS GASTROINTESTINAL/ABDOMINAL: NEGATIVE EXCEPT FOR HPI GENITOURINARY: NEGATIVE EXCEPT FOR HPI MUSCULOSKELETAL: NEGATIVE EXCEPT FOR HPI INTEGUMENTARY: NEGATIVE EXCEPT FOR HPI NEUROLOGICAL/PSYCH: NEGATIVE EXCEPT FOR HPI HEMATOLOGIC/LYMPHATIC: NEGATIVE EXCEPT FOR HPI ALL SYSTEMS NEGATIVE, EXCEPT NOTED ABOVE. 13 POINT REVIEW OF SYSTEMS ASSESSED AND ALL NEGATIVE EXCEPT FOR ABOVE. Initial Vital Sign VS Vital Signs Date Time Temp Pulse Resp B/P (MAP) Pulse Ox O2 Delivery O2 Flow Rate FiO2 11/08/24 23:35 98.1 102 20 125/76 97 Room Air 11/09/24 00:14 0 21 Physical Exam Dictation VITAL SIGNS REVIEWED GENERAL APPEARANCE: ALERT, ORIENTED X 3, MODERATE ACUTE DISTRESS, WELL DEVELOPED, NOURISHED. HEAD AND FACE: NON-TRAUMATIC. EYES: PERRL, PINK CONJUNCTIVAS, EYELID NO TRAUMA, ANTERIOR CHAMBER WITH ARCUS SENILIS. EARS: PINNAS INTACT AND NO SIGNS OF TRAUMA OR ERYTHEMA EAR CANALS CLEAR AND NO DISCHARGE TM NO ERYTHEMA NOSE: NO DISCHARGE, NO BLEEDING. OROPHARYNX: MOUTH NORMAL, TONGUE PINK, PHARYNX CLEAR,NO ERYTHEMA, TONSILS NO EXUDATES, NO ABSCESSES NOTED, MUCOUS MEMBRANE MOIST NECK: SUPPLE, NON-TENDER, NO THYROMEGALY, NO MASSES, NO JVD, NO BRUITS BREAST:DEFERRED CHEST:N RIGHT INFEROLATERAL CHEST WALL TENDERNESS WITH PALPATION TENDERNESS, NO CREPITUS, NO PARADOXICAL MOVEMENT, NO RETRACTIONS NO VESICULAR LESIONS OR RASH LUNGS:CLEAR, WELL-VENTILATED, SYMMETRIC, NO RALES, NO WHEEZING, NO RHONCHI, NO STRIDOR, GOOD BREATH SOUNDS BILATERALLY HEART: REGULAR RATE, REGULAR RHYTHM, NO MURMUR, NO GALLOPS VASCULAR: NO PERIPHERAL EDEMA, ABDOMEN: SOFT, POSITIVE BOWEL SOUNDS, NONDISTENDED, NO GUARDING, NONTENDER, NO REBOUND, NO MASSES NO HEPATOMEGALY, NO SPLENOMEGALY, NO MONTESINOS'S SIGN, NO HERNIAS. RECTAL: DEFERRED GENITAL: DEFERRED NEUROLOGICAL: NORMAL SPEECH, MOTOR FUNCTION INTACT, SENSORY FUNCTION INTACT MUSCULOSKELETAL: NECK NONTENDER, FULL RANGE OF MOTION, BACK NONTENDER, FULL RANGE OF MOTION, EXTREMITIES: NONTENDER, FULL RANGE OF MOTION SKIN: COLOR PINK, DRY, NO TURGOR, NO RASH, NO LACERATIONS, NO ABRASIONS, NO CONTUSIONS. LYMPHATIC: DEFERRED Results (Laboratory/Radiology) Labs Reviewed?: Yes ED Course ED Course Orders Procedure Category Date Status Time Ketorolac 60mg/2ml PHA 11/09/24 Complete (Toradol 60mg/2ml) 00:00 Ribs Uni Rt W Pa RAD 11/09/24 Taken Chest 3+ Vws 00:01 Methylprednisolone PHA 11/09/24 Verified Succ 125mg (Solu-Medr 01:30 Cyclobenzaprine Hcl PHA 11/09/24 Verified (Cyclobenzaprine Hcl 01:30 Current Medications Medications (Trade) Dose Ordered Sig/Juani Route PRN Reason Start Time Stop Time Status Last Admin Dose Admin Ketorolac Tromethamine (toRADol 60MG/ 2ML) 60 mg ONCE ONCE IM 11/09/24 00:00 11/09/24 00:01 DC 11/08/24 23:56 Vital Signs Date Time Temp Pulse Resp B/P (MAP) Pulse Ox O2 Delivery O2 Flow Rate FiO2 11/09/24 00:14 98.8 88 18 118/72 99 Room Air* 0 21 11/08/24 23:35 98.1 102 20 125/76 97 Room Air 1:00 a.m. patient was signed out to me by Beverly mid-level provider 44-year-old female morbidly obese presented to the emergency room with complaints of pain in the right thoracic area radiating to the posterior axillary line. No fever chills or rigors no trauma no unusual strain in terms of lifting heavy weight. Any movement caused sharp radiating pain. She also stated the muscles are tender on palpation this has been going on for 5 days . Rib series of the right chest by my interpretation, no evidence of any obvious fractures or dislocations. I updated the patient on the x-ray findings and my thoughts that this is perhaps thoracic radiculopathy and paraspinal muscle spasm. Discharge her to home on a short trial of lower dose steroid, muscle relaxant and NSAID Medical Decision Making MDM MDM: Differential diagnosis: Sprain of the paraspinal muscle, radiculopathy, pleurisy, pre herpetic pain Rationale: Tests considered and ordered secondary to shared decision making include: Previous outside records reviewed: Old ER visits. Risk of complication and/or morbidity or mortality of patient management: None Medications-Per medication reconciliation Need for hospitalization: Patient does not meet criteria for hospitalization. Need for emergency major/minor surgery: No There are no social concerns with this patient. Prescription drug management Prescriptions will include symptomatic care Patient's prior external medical records from other ER visits were reviewed by me as indicated. Prior testing and results from previous visits were reviewed. Prior tests were taken into account with medical decision making and resource utilization, independent historian/historians were used to obtain complete medical history. I independently interpreted the test that were performed, results were reviewed by me and considered findings on radiology if ordered. Medical management and examination interpretation discussions were had by me with other qualified healthcare professionals as indicated for the patient's care. Problem List Problem List: (1) Thoracic radiculopathy due to osteoarthritis of spine (2) Paraspinal muscle spasm DX & DISP Disposition: Discharge Departure Impression: Primary Impression: Thoracic radiculopathy due to osteoarthritis of spine Additional Impression: Paraspinal muscle spasm Condition: Stable Scripts Ketorolac Tromethamine (Toradol) 10 Mg Tab 10 MG PO QID for pain for 5 Days, #20 TAB 0 Refills Prov: BRYCE TYLER MD 11/09/24 Cyclobenzaprine HCl (Cyclobenzaprine HCl) 5 Mg Tablet 1 TAB PO TIDP PRN for muscle spasms for 5 Days, #15 TAB 0 Refills Prov: BRYCE TYLER MD 11/09/24 Prednisone (Prednisone) 20 Mg Tablet 1 TAB PO AD for 6 Days, #14 TAB 0 Refills TAKE 1 TAB BY MOUTH THREE TIMES PER DAY X3 DAYS, THEN TAKE 1 TAB BY MOUTH TWICE A DAY X2 DAYS, THEN TAKE 1 TAB BY MOUTH ONCE A DAY X1 DAY. Prov: BRYCE TYLER MD 11/09/24 Referrals: MAMTA SHELTON DO (PCP) BEVERLY CORNELIUS NP Nov 08, 2024 23:45 BRYCE TYLER MD Nov 09, 2024 01:32
--- NOTE | 2024-11-09 01:28 | HMCIMG ---
EXAM: CR Chest and Right Ribs, 3 Views. CLINICAL HISTORY: Nontraumatic right inferior lateral rib pain for 5 days. COMPARISON: None provided. FINDINGS: The lungs show no infiltrates or other acute findings. No pleural effusion or pneumothorax. The cardiomediastinal silhouette is within normal limits. No acute osseous abnormality. Surgical clips in the right upper quadrant of the abdomen. IMPRESSION: No acute cardiopulmonary pathology is evident. No acute right rib fractures. /[place]
[2024-11-09] MEDS ORDERED: KETO10 PO (01:29)
[2024-11-09] MEDS ORDERED: CYCL5TAB3 PO (01:29)
[2024-11-09] MEDS ORDERED: PRED20TA3 PO (01:29)
[2024-11-09] MEDS: CYCLOBENZAPRINE HCL 10 MG TABLET PO ONE (01:43)
[2024-11-09 01:45] VITALS: BP 132/66; PULSE 85; RESP 18; TEMP 98.8; O2SAT 97
== END 2024-11-09 01:47 | disposition home or self-care (01) ==
LOC: EDH 23:31
DX: M54.14 Radiculopathy, thoracic region (principal); M62.830 Muscle spasm of back; J45.909 Unspecified asthma, uncomplicated; E11.9 Type 2 diabetes mellitus without complications; Z79.52 Long term (current) use of systemic steroids; Z79.899 Other long term (current) drug therapy
CPT/HCPCS: 99284; 96374; 71101; 96372; J1885; J2919